=== PATIENT | male | born 1980 | race Hispanic/Latino ===

== ENCOUNTER 2020-07-12 11:03 | Emergency (ER) | payer BC ==
--- NOTE | 2020-07-12 11:58 | RAD REPORT ---
EXAM DESCRIPTION: RAD - Chest Single View - 07/12/2020 11:38 am CLINICAL HISTORY: CHEST PAIN Chest pain. COMPARISON: CHEST SINGLE VIEW dated 04/04/2013; CHEST PA AND LAT 2 VIEW dated 04/23/2012 FINDINGS: Portable technique limits examination quality. The lungs are grossly clear. The heart is normal in size. No displaced fractures. IMPRESSION: No acute intrathoracic process suspected.
[2020-07-12] MEDS ORDERED: ASPIRIN 81 MG CHEWABLE TABLET ONE (12:10)
[2020-07-12] MEDS ORDERED: METOPROLOL TAR 50 MG TAB ONE (12:11)
[2020-07-12] MEDS ORDERED: NA CHLORIDE 0.9% 1,000 ML ONE (12:11)
[2020-07-12 12:18] LABS: Protime INR 0.94
[2020-07-12 12:22] LABS: Basophils % 0.5 % (0-1.3); Hematocrit 42.9 % (39.6-49.0); MPV 9.5 fL (7.6-11.3); RBC Red Blood Cell Count 4.65 M/uL (4.33-5.43)
[2020-07-12 12:23] LABS: ALT/SGPT 92 U/L (12-78); AST/SGOT 57 U/L (15-37); Albumin 4.3 g/dL (3.4-5.0); Alkaline Phosphatase 103 U/L (45-117); BUN Blood Urea Nitrogen 11 mg/dL (7-18); Bicarbonate 25 mmol/L (21-32); Bilirubin Direct < 0.1 mg/dL (0-0.2); Bilirubin Total 0.4 mg/dL (0.2-1.0); Glucose Level 100 mg/dL (74-106); Potassium 3.9 mmol/L (3.5-5.1); Protein, Total 8.2 g/dL (6.4-8.2); Sodium Level 141 mmol/L (136-145); Troponin (Emerg Dept Use Only) < 0.02 ng/mL (0.0-0.045)
--- NOTE | 2020-07-12 13:32 | EDPHYS ---
Physician Documentation [facility] Name: Jose Carrasco Jr Age: 40 yrs Sex: Male : 1980 Arrival Date: 07/12/2020 Time: 11:04 Bed 16 Private MD: ED Physician Saji Chen HPI: 07/12 11:29 This 40 yrs old Male presents to ER via Ambulatory with complaints of Chest akiko Pain. 11:29 The patient or guardian reports chest pain that is located primarily in the substernal akiko area, anterior chest wall, left. Onset: just prior to arrival. The pain does not radiate. Associated signs and symptoms: Pertinent positives: shortness of breath. The chest pain is described as a pressure. Modifying factors: The symptoms are alleviated by remaining still, the symptoms are aggravated by deep breath. Severity of pain: At its worst the pain was mild in the emergency department the pain is unchanged. The patient has not experienced similar symptoms in the past. Historical: - Allergies: 11:14 No Known Drug Allergies; sv - PMHx: 11:14 None; sv - PSHx: 11:14 left shoulder sx; sv - Immunization history:: Adult Immunizations. - Social history:: Smoking status: Patient reports the use of cigarette tobacco products, denies chronic smoking, but will smoke occasionally. - Family history:: not pertinent. ROS: 11:29 Constitutional: Negative for fever, chills, and weight loss, Eyes: Negative for injury, akiko pain, redness, and discharge, ENT: Negative for injury, pain, and discharge, Neck: Negative for injury, pain, and swelling, Respiratory: Negative for shortness of breath, cough, wheezing, and pleuritic chest pain, Abdomen/GI: Negative for abdominal pain, nausea, vomiting, diarrhea, and constipation, Back: Negative for injury and pain, : Negative for injury, bleeding, discharge, and swelling, MS/Extremity: Negative for injury and deformity, Skin: Negative for injury, rash, and discoloration, Neuro: Negative for headache, weakness, numbness, tingling, and seizure, Psych: Negative for depression, anxiety, suicide ideation, homicidal ideation, and hallucinations, Allergy/Immunology: Negative for hives, rash, and allergies, Endocrine: Negative for neck swelling, polydipsia, polyuria, polyphagia, and marked weight changes, Hematologic/Lymphatic: Negative for swollen nodes, abnormal bleeding, and unusual bruising. 11:29 Cardiovascular: Positive for chest pain, of the left clavicle and anterior aspect of left upper chest. Exam: 11:29 Constitutional: This is a well developed, well nourished patient who is awake, alert, akiko and in no acute distress. Head/Face: Normocephalic, atraumatic. Eyes: Pupils equal round and reactive to light, extra-ocular motions intact. Lids and lashes normal. Conjunctiva and sclera are non-icteric and not injected. Cornea within normal limits. Periorbital areas with no swelling, redness, or edema. ENT: Nares patent. No nasal discharge, no septal abnormalities noted. Tympanic membranes are normal and external auditory canals are clear. Oropharynx with no redness, swelling, or masses, exudates, or evidence of obstruction, uvula midline. Mucous membranes moist. Neck: Trachea midline, no thyromegaly or masses palpated, and no cervical lymphadenopathy. Supple, full range of motion without nuchal rigidity, or vertebral point tenderness. No Meningismus. Chest/axilla: Normal chest wall appearance and motion. Nontender with no deformity. No lesions are appreciated. Cardiovascular: Regular rate and rhythm with a normal S1 and S2. No gallops, murmurs, or rubs. Normal PMI, no JVD. No pulse deficits. Respiratory: Lungs have equal breath sounds bilaterally, clear to auscultation and percussion. No rales, rhonchi or wheezes noted. No increased work of breathing, no retractions or nasal flaring. Abdomen/GI: Soft, non-tender, with normal bowel sounds. No distension or tympany. No guarding or rebound. No evidence of tenderness throughout. Back: No spinal tenderness. No costovertebral tenderness. Full range of motion. Skin: Warm, dry with normal turgor. Normal color with no rashes, no lesions, and no evidence of cellulitis. MS/ Extremity: Pulses equal, no cyanosis. Neurovascular intact. Full, normal range of motion. Neuro: Awake and alert, GCS 15, oriented to person, place, time, and situation. Cranial nerves II-XII grossly intact. Motor strength 5/5 in all extremities. Sensory grossly intact. Cerebellar exam normal. Normal gait. Psych: Awake, alert, with orientation to person, place and time. Behavior, mood, and affect are within normal limits. 11:29 Musculoskeletal/extremity: DVT Exam: No signs of deep vein thrombosis. no pain, no swelling, no tenderness, negative Homans' sign noted on exam, no appreciated bluish discoloration, no erythema, no increased warmth. 11:34 ECG was reviewed by the Attending Physician. [facility] Vital Signs: 11:15 BP 163 / 100; Pulse 77; Resp 20; Temp 98.9; Pulse Ox 100% ; Weight 95.25 kg; Height 5 sv ft. 11 in. (180.34 cm); Pain 8/10; 12:08 BP 161 / 108; Pulse 74; Resp 16; Pulse Ox 98% ; bp 13:14 BP 128 / 99; Pulse 54; Resp 16; Pulse Ox 100% ; ss 14:10 BP 127 / 93; Pulse 61; Resp 17; Temp 98.5; Pulse Ox 99% ; bp 11:15 Body Mass Index 29.29 (95.25 kg, 180.34 cm) sv MDM: 11:19 Patient medically screened. akiko 11:31 Differential diagnosis: abnormal EKG, coronary artery disease chest wall pain, akiko Cholelithiasis hiatal hernia, pancreatitis, pneumonia, pulmonary embolus, stable angina, unstable angina. HEART Score: History: Slightly Suspicious (0), ECG: Normal (0), Age: < or = 45 years (0), Risk Factors: No Risk Factors Known (0), Troponin: < or = 1 x Normal Limit (0). The patient was given aspirin in the Emergency Department. The patient's deep vein thrombosis risk score was calculated as follows: Total Score: 0. This patient was found to be at low risk for a deep vein thrombosis by using the Well's assessment criteria. The patient's pulmonary embolism risk score was calculated as follows: Total Score: 0-2 points. This patient was found to be at low risk for a pulmonary embolism by using the Well's assessment criteria. TANESHA Risk Score: TOTAL SCORE = 0. Data reviewed: vital signs, nurses notes, lab test result(s), EKG, radiologic studies, plain films. Data interpreted: water meter installer: rate is 77 beats/min, rhythm is regular, Pulse oximetry: on room air. Test interpretation: by ED physician or midlevel provider: ECG, plain radiologic studies. 12:10 ED course: all labs discussed, will follow up , return if symptoms return or persist. [facility] 13:29 ED course: pts labs discussed, will dc and have pat to follow up dr barahona. [facility] 07/12 11:29 Order name: Basic Metabolic Panel; Complete Time: 13:24 [facility] 07/12 11:29 Order name: CBC with Diff; Complete Time: 13:24 [facility] 07/12 11:29 Order name: LFT's; Complete Time: 13:24 [facility] 07/12 11:29 Order name: Magnesium; Complete Time: 13:24 [facility] 07/12 11:29 Order name: PT-INR; Complete Time: 13:24 [facility] 07/12 11:29 Order name: Troponin (emerg Dept Use Only); Complete Time: 13:24 [facility] 07/12 11:29 Order name: XRAY Chest (1 view); Complete Time: 12:10 [facility] 07/12 11:29 Order name: D-Dimer; Complete Time: 13:24 [facility] 07/12 11:29 Order name: UDS [facility] 07/12 13:55 Order name: Urine Dipstick--Ancillary (enter results) 07/12 13:56 Order name: Urine Dipstick-Ancillary [facility] 07/12 11:29 Order name: EKG; Complete Time: 11:30 [facility] 07/12 11:29 Order name: Cardiac monitoring; Complete Time: 11:52 [facility] 07/12 11:29 Order name: EKG - Nurse/Tech; Complete Time: 11:52 [facility] 07/12 11:29 Order name: IV Saline Lock; Complete Time: 11:52 [facility] 07/12 11:29 Order name: Labs collected and sent; Complete Time: 11:52 [facility] 07/12 11:29 Order name: O2 Per Protocol; Complete Time: 11:52 [facility] 07/12 11:29 Order name: O2 Sat Monitoring; Complete Time: 11:52 [facility] EC:34 Rate is 65 beats/min. Rhythm is regular. QRS [place] is Normal. [place] interval is normal. QRS akiko interval is normal. QT interval is normal. No Q waves. T waves are Normal. No ST changes noted. Clinical impression: Normal ECG and No evidence of ischemia. Interpreted by me. Reviewed by me. Administered Medications: 11:55 Drug: NS 0.9% 1000 ml Route: IV; Rate: 1 bolus; Site: left antecubital; bp 14:14 Follow up: IV Status: Completed infusion; IV Intake: 1000ml bp 11:55 Drug: Aspirin Chewable Tablet 324 mg Route: PO; bp 13:51 Follow up: Response: No adverse reaction bp 11:55 Drug: Lopressor (metoprolol TARTRATE) 50 mg Route: PO; bp 13:51 Follow up: Response: Marked relief of symptoms bp Disposition: 07/12/20 13:31 Discharged to Home. Impression: Chest pain, unspecified, Dyspnea. - Condition is Stable. - Discharge Instructions: Nonspecific Chest Pain, Chest Wall Pain, Shortness of Breath, Shortness of Breath, [id number], Chest Wall Pain, [id number], Nonspecific Chest Pain, [id number], Aspirin and Your Heart. - Medication Reconciliation Form, Thank You Letter, Antibiotic Education, Prescription Opioid Use form. - Work release form (07/13/20 13:05). eb - Follow up: Private Physician; When: 2 - 3 days; Reason: Recheck today's complaints, Continuance of care, Re-evaluation by your physician. Follow up: Luigi Barahona MD; When: 2 - 3 days; Reason: Recheck today's complaints, Re-evaluation by your physician. - Problem is new. - Symptoms have improved. Signatures: Dispatcher [employer] Maryjane Figueredo, RN Saji Baker MD MD cha Peltier, Brian, RN RN bp Botello, Elizabeth eb Corrections: (The following items were deleted from the chart) 14:14 13:31 07/12/2020 13:31 Discharged to Home. Impression: Chest pain, unspecified; bp Dyspnea. Condition is Stable. Forms are Medication Reconciliation Form, Thank You Letter, Antibiotic Education, Prescription Opioid Use. Follow up: Private Physician; When: 2 - 3 days; Reason: Recheck today's complaints, Continuance of care, Re-evaluation by your physician. Follow up: Luigi Barahona; When: 2 - 3 days; Reason: Recheck today's complaints, Re-evaluation by your physician. Problem is new. Symptoms have improved. akiko
--- NOTE | 2020-07-12 13:32 | ER ---
Nurse's Notes [facility] Name: Jose Carrasco Jr Age: 40 yrs Sex: Male : 1980 Arrival Date: 07/12/2020 Time: 11:04 Bed 16 Private MD: Diagnosis: Chest pain, unspecified;Dyspnea Presentation: 07/12 11:13 Chief complaint: Patient states: left sided chest pain started this morning. Reports sv that he was outside when the pain started at work, SOB, dizziness, vomiting. 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 Coronavirus screen: Client denies travel out of the [place] in the last 14 days. At this time, the client does not indicate any symptoms associated with coronavirus-19. Ebola Screen: No symptoms or risks identified at this time. Risk Assessment: Do you want to hurt yourself or someone else? Patient reports no desire to harm self or others. Onset of symptoms was July 12, 2020. 11:13 Method Of Arrival: Ambulatory sv 11:13 Acuity: KB 2 sv 11:15 Initial Sepsis Screen: Does the patient meet any 2 criteria? No. Patient's initial sv sepsis screen is negative. Does the patient have a suspected source of infection? No. Patient's initial sepsis screen is negative. Triage Assessment: 11:15 General: Appears in no apparent distress. uncomfortable, Behavior is cooperative, bp appropriate for age, anxious. Pain: Complains of pain in chest. EENT: No deficits noted. Neuro: No deficits noted. Cardiovascular: Rhythm is sinus rhythm. Respiratory: No deficits noted. GI: No signs and/or symptoms were reported involving the gastrointestinal system. : No signs and/or symptoms were reported regarding the genitourinary system. Derm: No deficits noted. Musculoskeletal: No deficits noted. Historical: - Allergies: 11:14 No Known Drug Allergies; sv - PMHx: 11:14 None; sv - PSHx: 11:14 left shoulder sx; sv - Immunization history:: Adult Immunizations. - Social history:: Smoking status: Patient reports the use of cigarette tobacco products, denies chronic smoking, but will smoke occasionally. - Family history:: not pertinent. Screenin:15 Abuse screen: Denies threats or abuse. Denies injuries from another. Nutritional bp screening: No deficits noted. Tuberculosis screening: No symptoms or risk factors identified. Fall Risk None identified. Assessment: 11:15 General: SEE TRIAGE NOTE. Pain: Pain radiates to anterior aspect of left upper chest. bp Cardiovascular: Rhythm is sinus rhythm. 12:08 Reassessment: UOP PENDING. PT REMAINS HYPERTENSIVE ON MONITOR. bp 13:17 Reassessment: PT NOW NORMO-TENSIVE, VS STABLE ON MONITOR. ss 14:10 Reassessment: PT D/C HOME AMBULATORY, DX WITH NONSPECIFIC CP. bp Vital Signs: 11:15 BP 163 / 100; Pulse 77; Resp 20; Temp 98.9; Pulse Ox 100% ; Weight 95.25 kg; Height 5 sv ft. 11 in. (180.34 cm); Pain 8/10; 12:08 BP 161 / 108; Pulse 74; Resp 16; Pulse Ox 98% ; bp 13:14 BP 128 / 99; Pulse 54; Resp 16; Pulse Ox 100% ; ss 14:10 BP 127 / 93; Pulse 61; Resp 17; Temp 98.5; Pulse Ox 99% ; bp 11:15 Body Mass Index 29.29 (95.25 kg, 180.34 cm) sv ED Course: 11:04 Patient arrived in ED. as 11:13 Arm band placed on. sv 11:14 Triage completed. sv 11:15 Patient has correct armband on for positive identification. Bed in low position. Call bp light in reach. Side rails up X2. security monitor on. Pulse ox on. NIBP on. 11:15 Inserted saline lock: 20 gauge in left antecubital area, using aseptic technique. bp Patient maintains SpO2 saturation greater than 95% on room air. 11:19 Saji Chen MD is Attending Physician. akiko 11:21 Jose Alfredo Qiu, KENNETH is Primary Nurse. bp 11:38 XRAY Chest (1 view) In Process Unspecified. EDMS 13:30 Luigi Barahona MD is Referral Physician. akiko 14:11 No provider procedures requiring assistance completed. IV discontinued. bp Administered Medications: 11:55 Drug: NS 0.9% 1000 ml Route: IV; Rate: 1 bolus; Site: left antecubital; bp 14:14 Follow up: IV Status: Completed infusion; IV Intake: 1000ml bp 11:55 Drug: Aspirin Chewable Tablet 324 mg Route: PO; bp 13:51 Follow up: Response: No adverse reaction bp 11:55 Drug: Lopressor (metoprolol TARTRATE) 50 mg Route: PO; bp 13:51 Follow up: Response: Marked relief of symptoms bp Intake: 14:14 IV: 1000ml; Total: 1000ml. bp Outcome: 13:31 Discharge ordered by MD. wharton 14:11 Discharged to home ambulatory. bp 14:11 Condition: stable 14:11 Discharge instructions given to patient, Instructed on discharge instructions, follow up and referral plans. Demonstrated understanding of instructions, follow-up care. 14:14 Patient left the ED. bp Signatures: Dispatcher [employer] EDMaryjane Earl RN RN sv Anderson, Corey, MD MD cha Martinez, Amelia as Smirch, Shelby, RN RN Jose Alfredo Qiu RN RN bp Corrections: (The following items were deleted from the chart) 11:18 11:13 Acuity: KB 3 sv sv
[2020-07-12 13:57] LABS: Barbiturates NEGATIVE (NEGATIVE); Benzodiazepines NEGATIVE (NEGATIVE); Cocaine NEGATIVE (NEGATIVE); METHAMPHETAM NEGATIVE (NEGATIVE); Methadone NEGATIVE (NEGATIVE); Opiates NEGATIVE (NEGATIVE); Phencyclidine NEGATIVE (NEGATIVE); THC Cannibis NEGATIVE (NEGATIVE)
[2020-07-12 14:01] LABS: Urine Blood NEGATIVE (NEG); Urine Glucose NEGATIVE (NEG); Urine Protein NEGATIVE (NEG); Urine pH 8.5 (5.0-7.0)
--- NOTE | 2020-07-13 09:01 | EKG ---
Test Date: 2020-07-12 Test Time: 11:23:29 Hide Buffer: AARON MEASUREMENT RESULTS: Intervals: Rate: 65 WI: 136 QRSD: 104 QT: 406 QTc: 422 Grayson: P: 59 WI: 136 QRS: 80 T: 60 INTERPRETIVE STATEMENTS: Normal sinus rhythm Minimal voltage criteria for LVH, may be normal variant Borderline ECG Compared to ECG 04/04/2013 21:08:27 No significant changes Electronically Signed On 07-13-20 09:00:13 CDT by Luigi Barahona
[2020-07-13 20:30] VITALS: BP 127/93; TEMP 98.5; O2SAT 99
== END 2020-07-12 14:14 | disposition home or self-care (01) ==
LOC: ER 11:03
DX: R06.00 Dyspnea, unspecified (principal); F17.210 Nicotine dependence, cigarettes, uncomplicated
CPT/HCPCS: 96361; 93005; 85025; 80048; 36415; 83735; 85610; 85379; 80076; 80307 ×8; 81003; 84484; 71045; 96360; 99285; J7030

== ENCOUNTER 2021-02-10 19:35 | Emergency (ER) | payer BC ==
[2021-02-10] MEDS ORDERED: METOPROLOL TAR 50 MG TAB ONE (20:21)
[2021-02-10] MEDS ORDERED: LORazepam 2 MG/ML VIAL ONE (20:22)
[2021-02-10] MEDS ORDERED: NA CHLORIDE 0.9% 1,000 ML ONE (20:22)
[2021-02-10 20:40] LABS: Absolute Lymphocytes (CBC) 1.2 K/uL (0.7-4.9); Basophils % 0.8 % (0-1.3); Hematocrit 44.7 % (39.6-49.0); Lymphocytes % 9.6 % (15.3-44.8); MPV 9.5 fL (7.6-11.3)
[2021-02-10 20:51] LABS: Protime INR 0.97
[2021-02-10 20:57] LABS: ALT/SGPT 76 U/L (12-78); AST/SGOT 48 U/L (15-37); Albumin 4.2 g/dL (3.4-5.0); Alkaline Phosphatase 92 U/L (45-117); BUN Blood Urea Nitrogen 12 mg/dL (7-18); Bicarbonate 24 mmol/L (21-32); Bilirubin Direct < 0.1 mg/dL (0-0.2); Bilirubin Total 0.4 mg/dL (0.2-1.0); Glucose Level 103 mg/dL (74-106); Magnesium 1.9 mg/dL (1.8-2.4); NT PRO-BNP 23 pg/mL (<125); Potassium 3.6 mmol/L (3.5-5.1); Protein, Total 8.2 g/dL (6.4-8.2); Sodium Level 140 mmol/L (136-145); Troponin (Emerg Dept Use Only) < 0.02 ng/mL (0.0-0.045)
[2021-02-10 23:00] LABS: Urine Blood Negative (Negative); Urine Glucose Negative (Negative); Urine Protein 1+ (Negative); Urine Specific Gravity 1.025 (1.005-1.030)
[2021-02-10 23:34] LABS: Barbiturates NEGATIVE (NEGATIVE); Benzodiazepines NEGATIVE (NEGATIVE); Cocaine NEGATIVE (NEGATIVE); METHAMPHETAM NEGATIVE (NEGATIVE); Methadone NEGATIVE (NEGATIVE); Opiates NEGATIVE (NEGATIVE); Phencyclidine NEGATIVE (NEGATIVE); THC Cannibis NEGATIVE (NEGATIVE)
--- NOTE | 2021-02-11 00:27 | EDPHYS ---
Physician Documentation [facility] Name: Jose Carrasco Jr Age: 40 yrs Sex: Male : 1980 Arrival Date: 02/10/2021 Time: 19:36 Bed 2 Private MD: ED Physician Hossein Franklin HPI: 02/10 19:51 This 40 yrs old Male presents to ER via EMS with unknown complaint. pkl 19:51 The patient or guardian reports chest pain that is located primarily in the substernal pkl area. Onset: just prior to arrival, 1 hour(s) ago. The pain does not radiate. Associated signs and symptoms: Pertinent positives: nausea. The chest pain is described as a pressure. The patient has experienced a previous episode, last year. Historical: - Allergies: 19:41 No Known Allergies; jb4 - Home Meds: 19:41 None [Active]; jb4 - PMHx: 19:41 Hypertension; Anxiety; jb4 - PSHx: 19:41 shoulder; jb4 - Immunization history:: Adult Immunizations up to date. - Social history:: Smoking status: Patient reports the use of cigarette tobacco products, daily <1/2 pack, Patient uses alcohol, occasionally. Patient/guardian denies using street drugs. ROS: 19:51 Eyes: Negative for injury, pain, redness, and discharge, ENT: Negative for injury, pkl pain, and discharge, Neck: Negative for injury, pain, and swelling. 19:51 Cardiovascular: Positive for chest pain. 19:51 Respiratory: Negative for cough, shortness of breath. 19:51 Abdomen/GI: Positive for nausea. 19:51 Back: Negative for acute changes. 19:51 : Negative for urinary symptoms. 19:51 MS/extremity: Negative for acute changes. 19:51 Skin: Negative for diaphoresis, rash. 19:51 Neuro: Negative for altered mental status. Exam: 19:51 Head/Face: Normocephalic, atraumatic. Eyes: Pupils equal round and reactive to light, pkl extra-ocular motions intact. Lids and lashes normal. Conjunctiva and sclera are non-icteric and not injected. Cornea within normal limits. Periorbital areas with no swelling, redness, or edema. ENT: Nares patent. No nasal discharge, no septal abnormalities noted. Tympanic membranes are normal and external auditory canals are clear. Oropharynx with no redness, swelling, or masses, exudates, or evidence of obstruction, uvula midline. Mucous membranes moist. Neck: Trachea midline, no thyromegaly or masses palpated, and no cervical lymphadenopathy. Supple, full range of motion without nuchal rigidity, or vertebral point tenderness. No Meningismus. Chest/axilla: Normal chest wall appearance and motion. Nontender with no deformity. No lesions are appreciated. Cardiovascular: Regular rate and rhythm with a normal S1 and S2. No gallops, murmurs, or rubs. Normal PMI, no JVD. No pulse deficits. Respiratory: Lungs have equal breath sounds bilaterally, clear to auscultation and percussion. No rales, rhonchi or wheezes noted. No increased work of breathing, no retractions or nasal flaring. Abdomen/GI: Soft, non-tender, with normal bowel sounds. No distension or tympany. No guarding or rebound. No evidence of tenderness throughout. Back: No spinal tenderness. No costovertebral tenderness. Full range of motion. Skin: Warm, dry with normal turgor. Normal color with no rashes, no lesions, and no evidence of cellulitis. MS/ Extremity: Pulses equal, no cyanosis. Neurovascular intact. Full, normal range of motion. Neuro: Awake and alert, GCS 15, oriented to person, place, time, and situation. Cranial nerves II-XII grossly intact. Motor strength 5/5 in all extremities. Sensory grossly intact. Cerebellar exam normal. Normal gait. Vital Signs: 19:36 BP 154 / 114; Pulse 79; Resp 22; Temp 98.2(TE); Pulse Ox 100% on R/A; Weight 97.52 kg jb4 (R); Height 5 ft. 10 in. (177.80 cm); Pain 5/10; 20:30 BP 131 / 86; Pulse 59; Resp 16; Pulse Ox 97% on R/A; jb4 21:33 BP 125 / 85; Pulse 60; Resp 20; Pulse Ox 97% ; mg2 23:00 BP 138 / 100; Pulse 67; Resp 16; Pulse Ox 98% on R/A; jb4 02/11 00:00 BP 131 / 93; Pulse 50; Resp 16; Pulse Ox 99% on R/A; jb4 02/10 19:36 Body Mass Index 30.85 (97.52 kg, 177.80 cm) jb4 MDM: 02/10 19:41 Patient medically screened. pkl 02/11 00:22 Data reviewed: vital signs, nurses notes. ED course: patient feeling better. Chest pain pkl resolved. Advised to follow up with Excavating Supervisor in 2 to 3 days for further evaluations. Patient understood instructions. 02/10 19:49 Order name: Basic Metabolic Panel pkl 02/10 19:49 Order name: CBC with Diff pkl 02/10 19:49 Order name: LFT's pkl 02/10 19:49 Order name: Magnesium pkl 02/10 19:49 Order name: NT PRO-BNP pkl 02/10 19:49 Order name: UDS; Complete Time: 08:22 pkl 02/10 20:34 Order name: Basic Metabolic Panel; Complete Time: 22:36 EDMS 02/10 20:34 Order name: Liver (Hepatic) Function; Complete Time: 22:36 EDMS 02/10 20:34 Order name: Troponin (Emerg Dept Use Only); Complete Time: 22:36 EDMS 02/10 20:34 Order name: NT PRO-BNP; Complete Time: 22:36 EDMS 02/10 20:34 Order name: Magnesium; Complete Time: 22:36 EDMS 02/10 20:34 Order name: CBC with Automated Diff; Complete Time: 22:36 EDMS 02/10 20:34 Order name: Protime (+INR); Complete Time: 22:36 EDMS 02/10 20:34 Order name: D-Dimer; Complete Time: 22:36 EDMS 02/10 21:31 Order name: Chest Single View; Complete Time: 08:22 EDMS 02/10 22:59 Order name: Urine Dipstick-Ancillary; Complete Time: 23:11 EDMS 02/10 19:49 Order name: EKG; Complete Time: 22:31 pkl 02/10 19:49 Order name: Cardiac monitoring; Complete Time: 20:18 pkl 02/10 19:49 Order name: EKG - Nurse/Tech; Complete Time: 20:18 pkl 02/10 19:49 Order name: IV Saline Lock; Complete Time: 20:18 pkl 02/10 19:49 Order name: Labs collected and sent; Complete Time: 20:19 pkl 02/10 19:49 Order name: O2 Per Protocol; Complete Time: 20:19 pkl 02/10 19:49 Order name: O2 Sat Monitoring; Complete Time: 20:19 pkl Administered Medications: 02/10 19:50 CANCELLED (Duplicate Order): Aspirin 162 mg PO once pkl 19:50 CANCELLED (Duplicate Order): Nitroglycerin 0.4 mg Sublingual once pkl 20:11 Drug: NS 0.9% 1000 ml Route: IV; Rate: 1000 ml; Site: left antecubital; 4 23:50 Follow up: Response: No adverse reaction; IV Status: Completed infusion; IV Intake: mg2 1000ml 20:12 Drug: Lopressor (metoprolol TARTRATE) 50 mg Route: PO; [facility] 23:50 Follow up: Response: No adverse reaction mg2 20:12 Drug: Ativan 1 mg Route: IVP; Site: left antecubital; [facility] 23:50 Follow up: Response: No adverse reaction mg2 Disposition: 02/11/21 00:26 Discharged to Home. Impression: Chest pain. - Condition is Stable. - Medication Reconciliation Form, Thank You Letter, Antibiotic Education, Prescription Opioid Use form. - Follow up: Luigi Barahona MD; When: 2 - 3 days; Reason: Re-evaluation by your physician. - Problem is new. - Symptoms are resolved. Signatures: Dispatcher [employer] EDSC Hossein Franklin MD MD pkl Nam Jauregui RN RN jb4 Vance Harrison RN mg2 Corrections: (The following items were deleted from the chart) 19:50 19:49 Aspirin 162 mg PO once ordered. pkl pkl 19:50 19:49 Nitroglycerin 0.4 mg Sublingual once ordered. pk pkl 22:34 22:30 Chest Single View+RAD.RAD.BRZ ordered. [facility] 02/11 00:02/10 22:30 Basic Metabolic Panel ordered. [facility] 02/11 00:02/10 22:30 CBC with Automated Diff ordered. [facility] 02/11 00:02/10 22:30 Liver (Hepatic) Function ordered. [facility] 02/11 00:02/10 22:30 Magnesium ordered. [facility] 02/11 00:02/10 22:30 NT PRO-BNP ordered. [facility] 02/11 00:02/10 22:30 PROTIME (+INR)+COAG.LAB.BRZ ordered. [facility] 02/11 00:02/10 22:30 TROPONIN (EMERG DEPT USE ONLY)+C.LAB.BRZ ordered. [facility] 02/11 00:02/10 22:30 D-DIMER+COAG.LAB.BRZ ordered. [facility] 02/11 00:24 00:15 Data reviewed: vital signs, nurses notes, lab test result(s), EKG, radiologic pkl studies, plain films, pkl 00:24 00:15 ED course: Patient feeling better. Chest pain resolved. Discussed EKG, lab and X' pkl rays results with patient. Advised to follow up with Excavating Supervisor in 2 to 3 days for further evaluations. Patient understood instructions. pkl 00:34 00:26 02/11/2021 00:26 Discharged to Home. Impression: Chest pain. Condition is Stable. jb4 Forms are Medication Reconciliation Form, Thank You Letter, Antibiotic Education, Prescription Opioid Use. Follow up: Luigi Barahona; When: 2 - 3 days; Reason: Re-evaluation by your physician. Problem is new. Symptoms are resolved. pkl
--- NOTE | 2021-02-11 00:27 | ER ---
Nurse's Notes [facility] Name: Jose Carrasco Jr Age: 40 yrs Sex: Male : 1980 Arrival Date: 02/10/2021 Time: 19:36 Bed 2 Private MD: Diagnosis: Chest pain Presentation: 02/10 19:36 Chief complaint: Patient states: My chest started hurting about 45min-1 hour ago, I jb4 feel like its just anxiety, but when my chest started hurting I got scared and had to call EMS EMS states: Pt reports chest pain that started about 45 minutes to an hour ago. He has a history of anxiety and hypertension but is no longer being medicated for the hyper tension. We gave 8 of zofran for the nausea, 325 of aspirin, and 1 sublingual nitro. Coronavirus screen: Client denies travel out of the [place] in the last 14 days. At this time, the client does not indicate any symptoms associated with coronavirus-19. Ebola Screen: No symptoms or risks identified at this time. Initial Sepsis Screen: Does the patient meet any 2 criteria? No. Patient's initial sepsis screen is negative. Does the patient have a suspected source of infection? No. Patient's initial sepsis screen is negative. Risk Assessment: Do you want to hurt yourself or someone else? Patient reports no desire to harm self or others. Onset of symptoms was February 10, 2021. Transition of care: patient was not received from another setting of care. 19:36 Method Of Arrival: EMS: [facility] jb4 19:36 Acuity: KB 3 jb4 Triage Assessment: 19:41 General: Appears in no apparent distress. comfortable, Behavior is cooperative, jb4 appropriate for age, anxious. Pain: Complains of pain in chest Pain does not radiate. Pain currently is 5 out of 10 on a pain scale. Quality of pain is described as stabbing. EENT: No signs and/or symptoms were reported regarding the EENT system. Neuro: Level of Consciousness is awake, alert, obeys commands, Oriented to person, place, time, situation. Cardiovascular: Patient's skin is warm and dry. Respiratory: Airway is patent Respiratory effort is even, unlabored, Respiratory pattern is regular, symmetrical. GI: No signs and/or symptoms were reported involving the gastrointestinal system. : No signs and/or symptoms were reported regarding the genitourinary system. Derm: Skin is intact, Skin is pink, warm \T\ dry. Musculoskeletal: Amputation of Circulation, motion, and sensation intact. Range of motion:. Historical: - Allergies: 19:41 No Known Allergies; jb4 - Home Meds: 19:41 None [Active]; jb4 - PMHx: 19:41 Hypertension; Anxiety; jb4 - PSHx: 19:41 shoulder; jb4 - Immunization history:: Adult Immunizations up to date. - Social history:: Smoking status: Patient reports the use of cigarette tobacco products, daily <1/2 pack, Patient uses alcohol, occasionally. Patient/guardian denies using street drugs. Screenin:40 Abuse screen: Denies threats or abuse. Nutritional screening: No deficits noted. jb4 Tuberculosis screening: No symptoms or risk factors identified. Fall Risk None identified. Assessment: 19:40 Reassessment: see triage note. jb4 21:00 Reassessment: Patient appears in no apparent distress at this time. Patient and/or jb4 family updated on plan of care and expected duration. Pain level reassessed. Patient is alert, oriented x 3, equal unlabored respirations, skin warm/dry/pink. 22:00 Reassessment: Patient appears in no apparent distress at this time. Patient and/or jb4 family updated on plan of care and expected duration. Pain level reassessed. Patient is alert, oriented x 3, equal unlabored respirations, skin warm/dry/pink. denies anxiety, reports chest pain has improved and is now soar. Patient states feeling better. 23:04 Reassessment: Patient appears in no apparent distress at this time. Patient and/or jb4 family updated on plan of care and expected duration. Pain level reassessed. Patient is alert, oriented x 3, equal unlabored respirations, skin warm/dry/pink. 02/11 00:11 Reassessment: Patient appears in no apparent distress at this time. Patient and/or jb4 family updated on plan of care and expected duration. Pain level reassessed. Patient is alert, oriented x 3, equal unlabored respirations, skin warm/dry/pink. Vital Signs: 02/10 19:36 BP 154 / 114; Pulse 79; Resp 22; Temp 98.2(TE); Pulse Ox 100% on R/A; Weight 97.52 kg jb4 (R); Height 5 ft. 10 in. (177.80 cm); Pain 5/10; 20:30 BP 131 / 86; Pulse 59; Resp 16; Pulse Ox 97% on R/A; jb4 21:33 BP 125 / 85; Pulse 60; Resp 20; Pulse Ox 97% ; mg2 23:00 BP 138 / 100; Pulse 67; Resp 16; Pulse Ox 98% on R/A; jb4 04 00:00 BP 131 / 93; Pulse 50; Resp 16; Pulse Ox 99% on R/A; jb4 02/10 19:36 Body Mass Index 30.85 (97.52 kg, 177.80 cm) jb4 ED Course: 02/10 19:36 Patient arrived in ED. jb4 19:40 Triage completed. jb4 19:40 Patient has correct armband on for positive identification. Bed in low position. Call jb4 light in reach. Side rails up X 1. Pulse ox on. NIBP on. 19:41 Hossein Franklin MD is Attending Physician. pkl 19:41 Arm band placed on right wrist. jb4 19:54 Nam Jauregui RN is Primary Nurse. jb4 22:18 Chest Single View In Process Unspecified. EDMS 02/11 00:25 Luigi Barahona MD is Referral Physician. pkl 00:34 No provider procedures requiring assistance completed. IV discontinued, intact, jb4 bleeding controlled, No redness/swelling at site. Pressure dressing applied. Administered Medications: 02/10 19:50 CANCELLED (Duplicate Order): Aspirin 162 mg PO once pkl 19:50 CANCELLED (Duplicate Order): Nitroglycerin 0.4 mg Sublingual once pkl 20:11 Drug: NS 0.9% 1000 ml Route: IV; Rate: 1000 ml; Site: left antecubital; jb4 23:50 Follow up: Response: No adverse reaction; IV Status: Completed infusion; IV Intake: mg2 1000ml 20:12 Drug: Lopressor (metoprolol TARTRATE) 50 mg Route: PO; jb4 23:50 Follow up: Response: No adverse reaction mg2 20:12 Drug: Ativan 1 mg Route: IVP; Site: left antecubital; jb4 23:50 Follow up: Response: No adverse reaction mg2 Intake: 23:50 IV: 1000ml; Total: 1000ml. mg2 Outcome: 02/11 00:26 Discharge ordered by . dorota 00:34 Discharged to home ambulatory. jb4 00:34 Condition: stable 00:34 Discharge instructions given to patient, Instructed on discharge instructions, follow up and referral plans. Demonstrated understanding of instructions, follow-up care. 00:34 Patient left the ED. jb4 Signatures: Dispatcher [employer] EDWA Hossein Franklin MD MD pkNam Ch RN RN jb Vance Harrison RN RN mg2 Corrections: (The following items were deleted from the chart) 02/10 19:44 19:36 BP 154 / 114; Pulse 79bpm; Resp 16bpm; Pulse Ox 100% RA; Temp 98.2F Temporal; jb4 97.52 kg Reported; Height 5 ft. 10 in.; BMI: 30.8; Pain 5/10; jb4 02/11 00:33 00:33 Abuse screen: Denies threats or abuse. jb4 [facility] 00:33 00:33 Nutritional screening: No deficits noted. jb4 jb4 00:33 00:33 Tuberculosis screening: No symptoms or risk factors identified. jb4 jb4 00:33 00:33 Fall Risk None identified. jb4 jb4
[2021-02-11 01:55] VITALS: TEMP 98.2
[2021-02-11 02:00] VITALS: BP 131/93; O2SAT 99
--- NOTE | 2021-02-11 05:48 | RAD REPORT ---
EXAM DESCRIPTION: Brody Single View02/10/2021 10:18 pm CLINICAL HISTORY: Chest pain COMPARISON: 2019 FINDINGS: The lungs appear clear of acute infiltrate. The heart is normal size IMPRESSION: No acute abnormalities displayed
--- NOTE | 2021-02-11 08:10 | EKG ---
Test Date: 2021-02-10 Test Time: 19:51:14 Rental Sales Representative: STUART MEASUREMENT RESULTS: Intervals: Rate: 66 NE: 128 QRSD: 102 QT: 408 QTc: 427 [place]: P: 55 NE: 128 QRS: 82 T: 62 INTERPRETIVE STATEMENTS: Normal sinus rhythm Normal ECG Compared to ECG 07/12/2020 11:23:29 Left ventricular hypertrophy no longer present Electronically Signed On 02-11-21 08:08:10 CDT by Luigi Barahona
== END 2021-02-11 00:34 | disposition home or self-care (01) ==
LOC: ER 19:35
DX: R07.9 Chest pain, unspecified (principal); I10 Essential (primary) hypertension; Z72.0 Tobacco use
CPT/HCPCS: 93005; 85025; 80048; 36415; 83735; 85610; 85379; 80076; 80307 ×8; 81003; 84484; 83880; 71045; J7030; 96361; 96374; 99284

== ENCOUNTER 2021-06-09 05:15 | Emergency (ER) | payer BC ==
--- OUTSIDE RECORDS SUMMARY | 2021-06-09 05:17 | XMS REPORT | Continuity of Care Document ---
:1980 Author Organization [facility] t Address [address] [place] [address] Care Team Providers Name Role Phone Asked, Pcp Primary Care Physician Unavailable Basilio NARVAEZ Attending Clinician Singer BALL Attending Clinician Problems Condition Condition Condition Status Onset Resolution Last Treating Co mments Source Name Details Category Date Date Treatment Clinician Date No known No known Disease Metho di active active st problems problems Hospit a l Allergies, Adverse Reactions, Alerts This patient has no known allergies or adverse reactions. Family History Family Member Diagnosis Comments Start Date Stop Date Source Natural father No Known Problems Met [facility] Natural mother No Known Problems Met [facility] Social History Social Habit Start Date Stop Date Quantity Comments Source Tobacco use and 2017-05-20 2017-05-20 Never used Yarsanism exposure 00:00:00 00:00:00 Hospital Alcohol intake 2017-05-20 2017-05-20 Current drinker [facility] 00:00:00 00:00:00 of alcohol Hospital (finding) Sex Assigned At [birth year] Yarsanism 00:00:00 00:00:00 Hospital Smoking Status Start Date Stop Date Source Current every day smoker 2017-05-20 00:00:00 Met [facility] Medications Ordered Filled Start Stop Current Ordering Indication Dosage Frequency Signature Comments Components Source Medication Medication Date Date Medication? Clinician (SIG) Name Name No known No Methodi medications [facility] Procedures This patient has no known procedures. Plan of Care Planned Activity Planned Date Details Comments Source Future Scheduled Test COVID-19 VACCINE (1) [facility] [code = COVID-19 VACCINE (1)] Future Scheduled Test INFLUENZA VACCINE M [facility] [code = INFLUENZA VACCINE] Encounters Start End Encounter Admission Attending Care Care Encounter Source Date/Time Date/Time Type Type Clinicians Facility Department ID 2021-04-06 2021-04-06 Emergency [facility] [id number] 19:29:00 21:15:00 Salvador Chun [id number] [place] [id number] [place] [id number] 2021-02-27 2021-02-27 [facility] [id number] 00:18:00 03:30:00 Samuel Chun [id number] [place] [id number] [place] [id number] Results This patient has no known results.
[2021-06-09] MEDS ORDERED: METOPROLOL TARTRATE 5 MG/5 ML INJ IV ONE (05:36)
[2021-06-09 06:10] LABS: Absolute Lymphocytes (CBC) 2.2 K/uL (0.7-4.9); Basophils % 0.6 % (0-1.3); Hematocrit 42.6 % (39.6-49.0); Lymphocytes % 22.2 % (15.3-44.8); MPV 8.6 fL (7.6-11.3); RBC Red Blood Cell Count 4.64 M/uL (4.33-5.43)
[2021-06-09 06:29] LABS: ALT/SGPT 81 U/L (12-78); AST/SGOT 44 U/L (15-37); Albumin 4.1 g/dL (3.4-5.0); Alkaline Phosphatase 106 U/L (45-117); BUN Blood Urea Nitrogen 14 mg/dL (7-18); Bicarbonate 28 mmol/L (21-32); Bilirubin Direct < 0.1 mg/dL (0-0.2); Bilirubin Total 0.4 mg/dL (0.2-1.0); Glucose Level 102 mg/dL (74-106); Lipase 155 U/L (73-393); Potassium 3.7 mmol/L (3.5-5.1); Protein, Total 7.9 g/dL (6.4-8.2); Sodium Level 137 mmol/L (136-145)
[2021-06-09] MEDS ORDERED: ONDANSETRON 4 MG/2 ML VIAL ONE (06:54)
[2021-06-09] MEDS ORDERED: MORPHINE 4 MG/ML SYR ONE (06:54)
[2021-06-09] MEDS ORDERED: NA CHLORIDE 0.9% 1,000 ML ONE (06:54)
[2021-06-09] MEDS ORDERED: LORazepam 2 MG/ML VIAL ONE (07:21)
--- NOTE | 2021-06-09 08:14 | RAD REPORT ---
EXAM DESCRIPTION: CT - Abdomen Pelvis W Contrast - 06/09/2021 7:30 am CLINICAL HISTORY: LLQ abdomen pain COMPARISON: CT study January 2015 TECHNIQUE: Biphasic, helical CT imaging of the abdomen and pelvis was performed following 100 ml non -ionic IV contrast. No oral contrast given. All CT scans are performed using dose optimization technique as appropriate and may include automated exposure control or mA/KV adjustment according to patient size. FINDINGS: No suspicious findings in the lung bases. Liver shows diffuse fatty infiltration with no focal liver lesions seen. Portal vein is normal. No ac [place] spleen or pancreatic abnormality. Gallbladder and biliary tree are also without suspicious findin g. Gallstones can be occult on CT imaging. Symmetric renal function is seen with no hydronephrosis or suspicious renal mass. No pyelonephritis o r acute parenchymal process. No bladder abnormalities. No adrenal abnormalities. No stomach or small bowel abnormality seen. No colon dilatation or wall thickening. No appendicitis f indings. In the left lower quadrant there is stranding in the subcutaneous fat that is similar to the 2015 study. No active bowel process is identifiable at this time. No free air, free fluid or inflammatory stranding. No mass or bulky lymphadenopathy. Small fat only umbilical hernia is unchanged. Fat extends into the origin of each inguinal canal fractionally increa sed compared to prior imaging. No congestion or edema of the herniated fat. No suspicious bony findings. IMPRESSION: Contrast enhanced CT abdomen and pelvis showing no acute or emergent finding. Patient has very small bilateral fat filled inguinal hernias increased fractionally in size from 2015 . There is no congestion or edema of the herniated fat.
[2021-06-09 08:27] LABS: Urine Blood Negative (Negative); Urine Glucose Negative (Negative); Urine Protein Negative (Negative); Urine Specific Gravity 1.025 (1.005-1.030); Urine pH 5.5 (5.0-7.0)
--- NOTE | 2021-06-09 08:45 | ER ---
Nurse's Notes [facility] Name: Jose Carrasco Jr Age: 41 yrs Sex: Male : 1980 Arrival Date: 06/09/2021 Time: 05:16 Bed 24 Private MD: Diagnosis: Lower abdominal pain, unspecified Presentation: 06/09 05:40 Chief complaint: Patient states: Pt reports left lower quadrant pain that started this ea AM reports pain woke him out of his sleep. Coronavirus screen: At this time, the client does not indicate any symptoms associated with coronavirus-19. Ebola Screen: No symptoms or risks identified at this time. Initial Sepsis Screen: Does the patient meet any 2 criteria? No. Patient's initial sepsis screen is negative. Does the patient have a suspected source of infection? No. Patient's initial sepsis screen is negative. Risk Assessment: Do you want to hurt yourself or someone else? Patient reports no desire to harm self or others. Onset of symptoms was June 09, 2021. 05:40 Acuity: KB 3 ea 05:40 Method Of Arrival: Ambulatory ea Historical: - Allergies: 05:42 No Known Drug Allergies; ea - PMHx: 05:42 Anxiety; Hypertension; ea - Immunization history:: Adult Immunizations up to date. - Social history:: Smoking status: Patient denies any tobacco usage or history of. Screenin:40 Abuse screen: Denies threats or abuse. Nutritional screening: No deficits noted. ea Tuberculosis screening: No symptoms or risk factors identified. Fall Risk None identified. Assessment: 05:42 General: Appears in no apparent distress. Behavior is calm, cooperative, appropriate ea for age. Pain: Denies pain. Neuro: Level of Consciousness is awake, alert, obeys commands, Oriented to person, place, time. Cardiovascular: Respiratory: Airway is patent Respiratory effort is even, unlabored, Respiratory pattern is regular, symmetrical. GI: Abdomen is non-distended. Derm: Skin is pink, warm \T\ dry. 07:10 Reassessment: Patient is alert, oriented x 3, equal unlabored respirations, skin aa5 warm/dry/pink. Patient states symptoms have not improved. Awaiting radiology results, pt notified of wait time and notified of need for urine specimen collection. Pt states he does not need pain medication at this time. . General: Appears comfortable. Vital Signs: 05:40 BP 153 / 93; Pulse 56; Resp 18; Pulse Ox 97% ; ea 08:18 BP 136 / 93; Pulse 57; Resp 18 S; Pulse Ox 95% on R/A; aa5 ED Course: 05:16 Patient arrived in ED. wm 05:40 Patient has correct armband on for positive identification. Bed in low position. Call ea light in reach. Side rails up X2. 05:42 Triage completed. ea 05:42 Arm band placed on right wrist. Patient placed in an exam room, on a stretcher, on ea pulse oximetry. 05:43 Inserted saline lock: 20 gauge in right antecubital area, using aseptic technique. ea 06:18 Saji Burnett PA is PHCP. cp 06:18 Hossein Franklin MD is Attending Physician. cp 07:30 CT Abd/Pelvis - IV Contrast Only In Process Unspecified. EDTX 07:33 Janki Stiles, KENNETH is Primary Nurse. aa5 08:44 Rashad Domínguez MD is Referral Physician. cp Administered Medications: 06:37 Drug: morphine 4 mg Route: IVP; Site: right antecubital; ea 06:37 Drug: Zofran (Ondansetron) 4 mg Route: IVP; Site: right antecubital; ea 06:37 Drug: NS 0.9% 1000 ml Route: IV; Rate: 1 bolus; Site: right antecubital; ea 07:00 Drug: Ativan (LORazepam) 1 mg Route: IVP; Site: right antecubital; em 07:04 Not Given (Physician Discretion): Ativan (LORazepam) 0.5 mg IVP once em 08:41 Drug: Ketorolac 15 mg Route: IVP; Site: right antecubital; tr6 08:41 Drug: Cipro (ciprofloxacin) 500 mg Route: PO; tr6 08:41 Drug: metroNIDAZOLE 500 mg Volume: 100 ml; Route: IVPB; Infused Over: 30 mins; Site: tr6 right antecubital; 08:41 Drug: Bentyl (dicyclomine) 20 mg Route: PO; tr6 Outcome: 08:44 Discharge ordered by . cp 09:44 Patient left the ED. iw Signatures: Dispatcher [employer] Zach Alicia, RN RN Edith Edward, RN RN Janki Selby, RN RN aa5 Saji Burnett PA PA cp Antunez, Elena, RN RN Janessa Garcia, RN RN tr6 Linsey Cheatham
--- NOTE | 2021-06-09 08:45 | EDPHYS ---
Physician Documentation [facility] Name: Jose Carrasco Jr Age: 41 yrs Sex: Male : 1980 Arrival Date: 06/09/2021 Time: 05:16 Bed 24 Private MD: ED Physician Hossein Franklin HPI: 06/09 06:30 This 41 yrs old Male presents to ER via Ambulatory with complaints of cp Abdominal Pain - LEFT SIDE. 06:30 The patient presents with abdominal pain in the left lower quadrant. Onset: The cp symptoms/episode began/occurred 3 day(s) ago, and became worse this morning. The symptoms do not radiate. Associated signs and symptoms: Pertinent negatives: blood in stools, constipation, diarrhea, dysuria, fever, testicular pain, vomiting. The symptoms are described as sharp. Severity of pain: in the emergency department the pain is unchanged despite home interventions. Historical: - Allergies: 05:42 No Known Drug Allergies; ea - PMHx: 05:42 Anxiety; Hypertension; ea - Immunization history:: Adult Immunizations up to date. - Social history:: Smoking status: Patient denies any tobacco usage or history of. ROS: 06:35 Constitutional: Negative for body aches, chills, fever, poor PO intake. cp 06:35 Eyes: Negative for injury, pain, redness, and discharge. cp 06:35 Cardiovascular: Negative for chest pain, edema, palpitations. 06:35 Respiratory: Negative for cough, shortness of breath, wheezing. 06:35 Abdomen/GI: Positive for abdominal pain, of the left lower quadrant, Negative for vomiting, diarrhea, constipation, anorexia, black/tarry stool, rectal bleeding. 06:35 Back: Negative for radiated pain. 06:35 : Negative for urinary symptoms, flank pain, testicular pain 06:35 Neuro: Negative for altered mental status, dizziness, headache, syncope, weakness. 06:35 All other systems are negative. Exam: 06:40 Constitutional: The patient appears in no acute distress, alert, awake, non-toxic, well cp developed, well nourished. 06:40 Head/Face: Normocephalic, atraumatic. cp 06:40 Eyes: Periorbital structures: appear normal, Conjunctiva: normal, no exudate, no injection, Sclera: no appreciated abnormality, Lids and lashes: appear normal, bilaterally. 06:40 ENT: External ear(s): are unremarkable, Nose: is normal, Mouth: Lips: moist, Oral mucosa: moist, Posterior pharynx: Airway: no evidence of obstruction, patent. 06:40 Chest/axilla: Inspection: normal, Palpation: is normal, no crepitus, no tenderness. 06:40 Cardiovascular: Rate: bradycardic, Rhythm: regular. 06:40 Respiratory: the patient does not display signs of respiratory distress, Respirations: normal, no use of accessory muscles, no retractions, labored breathing, is not present, Breath sounds: are clear throughout, no decreased breath sounds, no stridor, no wheezing. 06:40 Abdomen/GI: Inspection: abdomen appears normal, Bowel sounds: active, all quadrants, Palpation: soft, in all quadrants, moderate abdominal tenderness, in the left lower quadrant, rebound tenderness, is not appreciated, involuntary guarding, is not appreciated. 06:40 Back: pain, is absent, ROM is normal. Vital Signs: 05:40 BP 153 / 93; Pulse 56; Resp 18; Pulse Ox 97% ; ea 08:18 BP 136 / 93; Pulse 57; Resp 18 S; Pulse Ox 95% on R/A; aa5 MDM: 06:18 Patient medically screened. cp 07:00 Differential diagnosis: appendicitis, cholecystitis, Cholelithiasis, non-specific abd cp pain, pancreatitis, Pyelonephritis, Ureterolithiasis, urinary tract infection, diverticulitis. 08:44 Data reviewed: vital signs, nurses notes, lab test result(s), radiologic studies, CT cp scan. 08:44 Counseling: I had a detailed discussion with the patient and/or guardian regarding: the cp historical points, exam findings, and any diagnostic results supporting the discharge/admit diagnosis, lab results, radiology results, the need for outpatient follow up, a tree trimmer. Response to treatment: Pain improved. Discussed results of labs and CT abdomen/pelvis. On exam patient with moderate ttp LLQ abdomen. Will treat for diverticulitis with oral antibiotics and discharge to home for continued monitoring. 06/09 05:36 Order name: Basic Metabolic Panel; Complete Time: 06:38 em 06/09 06:38 Interpretation: Normal except: GFR 78. cp 06/09 05:36 Order name: CBC with Diff; Complete Time: 06:38 em 08 06:39 Interpretation: Reviewed. cp 06/09 05:36 Order name: Hepatic Function; Complete Time: 06:38 em 08 06:39 Interpretation: Normal except: AST 44; ALT 81; GLOB 3.8. cp 06/09 05:36 Order name: Lipase; Complete Time: 06:38 em 08 07:55 Order name: Urine Microscopic Only; Complete Time: 09:21 cp 06/09 09:21 Interpretation: Reviewed. cp 06/09 08:26 Order name: Urine Dipstick-Ancillary; Complete Time: 09:21 EDMS 06/09 09:21 Interpretation: Reviewed. cp 06/09 06:23 Order name: CT Abd/Pelvis - IV Contrast Only; Complete Time: 08:18 cp 06/09 05:36 Order name: IV Saline Lock; Complete Time: 05:40 em 06/09 05:36 Order name: Labs collected and sent; Complete Time: 05:40 em 06/09 07:55 Order name: Urine Dipstick-Ancillary (obtain specimen); Complete Time: 08:29 cp Administered Medications: 06:37 Drug: morphine 4 mg Route: IVP; Site: right antecubital; ea 06:37 Drug: Zofran (Ondansetron) 4 mg Route: IVP; Site: right antecubital; ea 06:37 Drug: NS 0.9% 1000 ml Route: IV; Rate: 1 bolus; Site: right antecubital; ea 07:00 Drug: Ativan (LORazepam) 1 mg Route: IVP; Site: right antecubital; em 07:04 Not Given (Physician Discretion): Ativan (LORazepam) 0.5 mg IVP once em 08:41 Drug: Ketorolac 15 mg Route: IVP; Site: right antecubital; tr6 08:41 Drug: Cipro (ciprofloxacin) 500 mg Route: PO; tr6 08:41 Drug: metroNIDAZOLE 500 mg Volume: 100 ml; Route: IVPB; Infused Over: 30 mins; Site: tr6 right antecubital; 08:41 Drug: Bentyl (dicyclomine) 20 mg Route: PO; tr6 Disposition Summary: 06/09/21 08:44 Discharge Ordered Location: Home cp Problem: new cp Symptoms: have improved cp Condition: Stable cp Diagnosis - Lower abdominal pain, unspecified cp Followup: cp - With: Rashad Domínguez MD - When: 2 - 3 days - Reason: Recheck today's complaints Discharge Instructions: - Discharge Summary Sheet cp - Abdominal Pain, Adult cp - Diverticulitis cp Forms: - Medication Reconciliation Form cp - Thank You Letter cp - Antibiotic Education cp - Prescription Opioid Use cp - Work release form iw Prescriptions: - Zofran 4 mg Oral Tablet - take 1 tablet by ORAL route every 12 hours As needed; 20 tablet; Refills: 0, cp Product Selection Permitted - Cipro 500 mg Oral Tablet - take 1 tablet by ORAL route every 12 hours for 8-10 days; 20 tablet; Refills: cp 0, Product Selection Permitted - Metronidazole 500 mg Oral Tablet - take 1 tablet by ORAL route every 8 hours; 30 tablet; Refills: 0, Product cp Selection Permitted - dicyclomine 20 mg Oral Tablet - take 1 tablet by ORAL route 4 times per day; 30 tablet; Refills: 0, Product cp Selection Permitted Addendum: 06/11/2021 19:06 Co-signature as Attending Physician, Hossein george Signatures: Dispatcher [employer] Hossein Dotson MD MD pkl Munoz, Edgar RN RN Saji Rico PA PA cp Shereen Alvarado RN RN Janessa Garcia RN RN tr6 Corrections: (The following items were deleted from the chart) 06/09 06:39 06:39 Normal except: AST 44; ALT 81. cp cp
[2021-06-09 08:53] LABS: Urine Bacteria <20 /HPF (NONE SEEN); Urine RBC <5 /HPF (NONE SEEN)
[2021-06-09] MEDS ORDERED: DICYCLOMINE HCL 10 MG CAP ONE (08:57)
[2021-06-09] MEDS ORDERED: CIPROFLOXACIN HCL 500 MG TAB ONE (08:57)
[2021-06-09] MEDS ORDERED: KETOROLAC 30 MG/ML INJ ONE (08:58)
[2021-06-09] MEDS ORDERED: NA CHLORIDE 0.9% 100 ML ONE (08:58)
[2021-06-09] MEDS ORDERED: METRONIDAZOLE 500mg IVPB 500 MG/100 ML BAG IV ONE (08:58)
[2021-06-09 09:58] VITALS: BP 136/93; O2SAT 95
== END 2021-06-09 09:44 | disposition home or self-care (01) ==
LOC: ER 05:15
DX: R10.32 Left lower quadrant pain (principal); I10 Essential (primary) hypertension
CPT/HCPCS: 85025; 80048; 36415; 80076; 83690; 74177; Q9967; J7030; J2405; 81003; 81015

== ENCOUNTER 2023-06-24 06:38 | Emergency (ER) | payer BC ==
--- OUTSIDE RECORDS SUMMARY | 2023-06-24 06:44 | XMS REPORT | Continuity of Care Document ---
:1980 Author Organization [facility] t Address [address] [place] [address] [address] [place] [address] Care Team Providers Name Role Phone Asked, No Pcp Primary Care Physician Unavailable Trevon, General Cardiology Attending Clinician Unavailable GIOVANNI HERMAN Attending Clinician Unavailable Giovanni Herman NP Attending Clinician MEAGAN BOWER Attending Clinician Unavailable Meagan Bower DO Attending Clinician Doctor Unassigned, [place] Attending Clinician Unavailable ROXANA SHAH Attending Clinician Unavailable Roxana Shah DO Attending Clinician Pastora CLARK Attending Clinician Unavailable Pastora Hendricks Attending Clinician PAULA FINLEY Attending Clinician Unavailable Paula Finley MD Attending Clinician Esequiel Mahajan Attending Clinician Sylvia Mosley Attending Clinician SYLVIA RICHMOND Attending Clinician Unavailable GIOVANNI HERMAN Admitting Clinician Unavailable MEAGAN BOWER Admitting Clinician Unavailable ROXANA SHAH Admitting Clinician Unavailable PAULA FINLEY Admitting Clinician Unavailable SYLVIA RICHMOND Admitting Clinician Unavailable Payers Payer Name Policy Type Policy Number Effective Date Expiration Date S ource Problems Condition Condition Condition Status Onset Resolution Last Treating Co mments Source Name Details Category Date Date Treatment Clinician Date Generalize Generalize Disease Active U nivers d anxiety d anxiety 07-31 ity of disorder disorder 00:00: [address] Essential Essential Disease Active Uni vers (primary) (primary) 07-31 it[place] hypertens[place] COVID-19 COVID-19 Disease Active Unive rs 07-31 ity of 00:00: [address] No known No known Disease Unive rs active active ity of problems problems [facility] Allergies, Adverse Reactions, Alerts Allergy Allergy Status Severity Reaction(s) Onset Inactive Treating Comm ents Source Name Type Date Date Clinician NO KNOWN Drug Active Univers ALLERGIE Class ity of S [facility] Family History Family Member Diagnosis Comments Start Date Stop Date Source Natural father No Known Problems Met [facility] Natural mother No Known Problems Met [facility] Social History Social Habit Start Date Stop Date Quantity Comments Source History of tobacco Smokes tobacco Me thodist use daily Hospital Gender identity Scientologist [facility] Sexual orientation Method ist Hospital Exposure to 2023-02-25 2023-03-07 Not sure University SARS-CoV-2 (event) 00:00:00 13:09:00 [facility] Tobacco use and 2017-05-20 2017-05-20 Smokeless Scientologist exposure 00:00:00 00:00:00 tobacco non-user Hospital Alcohol intake 2017-05-20 2017-05-20 Current drinker [facility] 00:00:00 00:00:00 of alcohol Hospital (finding) History of Social 2017-05-20 2017-05-20 [facility] function 00:00:00 00:00:00 Hospital Sex Assigned At [birth year] Scientologist 00:00:00 00:00:00 Hospital Smoking Status Start Date Stop Date Source Tobacco smoking consumption Univ ersity [facility] Smokes tobacco daily 2017-05-20 00:00:00 [facility] Medications Ordered Filled Start Stop Current Ordering Indication Dosage Frequency Signature Comments Components Source Medication Medication Date Date Medication? Clinician (SIG) Name Name LORazepam No 1mg 1 mg, Slow U nivers (ATIVAN) 03-07 IV Push, ity of injection 1 22:00: 21:18 [place]CE, 1 [place] mg 00 :00 dose, On Medical [place] 03/07/23 at 1700, Routine ketorolac 2022- No 30mg 30 mg, Unive rs (TORADOL) 03-07 Slow IV ity of injection 20:15: 19:20 Push, [place] 30 mg 00 :00 ONCE, 1 Medical dose, On Branch 03/07/23 at 1515, Routine pantoprazol 2022- No 40mg 40 mg, Uni vers e 03-07 Slow IV ity of (PROTONIX) 20:00: 19:16 Push, [place] injection 00 :00 ONCE, 1 Medical 40 mg dose, On Branch 03/07/23 at 1500 ondansetron 2022- No 4mg 4 mg, Slow Univers (ZOFRAN 03-07 IV Push, ity of (PF)) 19:15: 19:16 ONCE, 1 [place] injection 4 00 :00 dose, On Medi miriam mg [place] Branch 03/07/23 at 1415, MAXIM maalox:diph 2022- No 15mL 15 mL, Uni vers enhydrAMINE 03-07 Oral, ity of :lidocaine 19:15: 19:16 ONCE, 1 [place] 2 % viscous 00 :00 dose, On Medi miriam 1:1:1 [place] [facility] (FIRST-MOUT 03/07/[address] [facility]) 1415, oral Routine suspension 15 mL famotidine 2022- No [id number] 20mg Take 1 Univers (PEPCID) 20 03-07-22 tablet by it y of mg tablet 00:00: 04:59 mouth at [place] 00 :00 bedtime Medical for 21 Branch days. famotidine 2022- No [id number] 20mg Take 1 Univers (PEPCID) 20 03-07 05-22 tablet by it y of mg tablet 00:00: 04:59 mouth at [place] 00 :00 bedtime Medical for 21 Branch days. sucralfate 2022- No [id number] 1g Take 1 Univers 1 gram 03-07 05-11 tablet by ity of tablet 00:00: 04:59 mouth [place] 00 :00 before Medical meals and Branch at bedtime for 10 days. sucralfate 2022- No [id number] 1g Take 1 Univers 1 gram 4-30 05-11 tablet by ity of tablet 00:00: 04:59 mouth [place] 00 :00 before Medical meals and Branch at bedtime for 10 days. NaCl 0.9% 2022- No [id number] 1000mL at 999 Univers (NS) bolus 01-09 03-04 mL/hr, ity of infusion 19:00: 20:21 1,000 mL, [place] 1,000 mL 00 :00 IV Medical Infusion, Branch ONCE, 1 dose, On 01/09/23 at 1300, MAXIM iopamidol 2022- No [id number] 88mL 88 mL, Univers (ISOVUE 01-09-04 Intravenou ity o f 370-500 mL) 18:40: 19:00 s, ONCE, 1 [place] injection 00 :00 dose, On Medica l 88 mL 01/09/23 Branch at 1300, Routine famotidine 2022- No [id number] 20mg 20 mg, Univers (PEPCID 01-09-04 Slow IV ity of (PF)) 18:15: 18:26 Push, [place] injection 00 :00 ONCE, 1 Medical 20 mg dose, On Branch 01/09/23 at 1215, MAXIM ondansetron 2022- No [id number] 4mg 4 mg, Slow Univers (ZOFRAN 01-09-04 IV Push, ity of (PF)) 18:15: 18:24 ONCE, 1 [place] injection 4 00 :00 dose, On Medi miriam mg 01/09/23 Branch at 1215, MAXIM metoprolol 0 Yes [id number] 50mg Take 1 Univers succinate 3-04 tablet by ity o f XL 50 mg 24 14:24: mouth in [facility] tablet 25 the Medical morning. Branch amLODIPine Yes [id number] 5mg Take 1 Univers 5 mg tablet 3-04 tablet by ity of 14:24: mouth in [place] 25 the Medical morning. Branch metoprolol Yes [id number] 50mg Take 1 Univers succinate 3-04 tablet by ity o f XL 50 mg 24 14:24: mouth in [place] hr tablet 25 the Medical morning. Branch amLODIPine 2022-0 Yes [id number] 5mg Take 1 Univers 5 mg tablet 3-04 tablet by ity of 14:24: mouth in [place] 25 the Medical morning. Branch metoprolol 2022-0 Yes [id number] 50mg Take 1 Univers succinate 3-04 tablet by ity o f XL 50 mg 24 14:24: mouth in [place] tablet 25 the Medical morning. Branch amLODIPine 2022-0 Yes [id number] 5mg Take 1 Univers 5 mg tablet 3-04 tablet by ity of 14:24: mouth in [place] 25 the Medical morning. Branch ondansetron Yes [id number] 4mg Take 1 Univers 4 mg 3-04 tablet by ity of disintegrat 00:00: mouth [place] ing tablet 00 every 8 Medica l (eight) Branch hours as needed for Nausea and Vomiting (N/V). ondansetron Yes [id number] 4mg Take 1 Univers 4 mg 3-04 tablet by ity of disintegrat 00:00: mouth [place] ing tablet 00 every 8 Medica l (eight) Branch hours as needed for Nausea and Vomiting (N/V). ondansetron Yes [id number] 4mg Take 1 Univers 4 mg 3-04 tablet by ity of disintegrat 00:00: mouth [place] ing tablet 00 every 8 Medica l (eight) Branch hours as needed for Nausea and Vomiting (N/V). famotidine 2022- No [id number] 40mg Take 1 Univers 40 mg 3-04 -26 tablet by ity of tablet 00:00: 04:59 mouth in [place] 00 :00 the Medical morning Branch for 21 days. FENTanyl PF 2021- No 50ug 50 mcg, Un jone (SUBLIMAZE 01-16 Slow IV ity o f (PF)) 22:00: 21:06 Push, [place] injection 00 :00 ONCE, 1 Medical 50 mcg dose, On Branch Wed01/16/22 at 1600, Routine FENTanyl PF 2021- No 50ug 50 mcg, Un jone (SUBLIMAZE 01-16 Slow IV ity o f (PF)) 20:30: 19:57 Push, [place] injection 00 :00 ONCE, 1 Medical 50 mcg dose, On Branch Wed01/16/22 at 1430, Routine amLODIPine No 5mg 5 mg, Unive rs (NORVASC) 01-16 Oral, ity of tablet 5 mg 19:00: 18:14 ONCE, 1 [place] 00 :[place] dose, On Medical 01/16/22 at 1300, MAXIM ketorolac No 30mg 30 mg, Unive rs (TORADOL) 01-16 Slow IV ity of injection 19:00: 18:14 Push, [place] 30 mg 00 :00 ONCE, 1 Medical dose, On Branch Wed01/16/22 at 1300, MAXIM famotidine No 20mg 20 mg, Univ ers (PEPCID 01-16 Slow IV ity of (PF)) 19:00: 18:14 Push, [place] injection 00 :00 ONCE, 1 Medical 20 mg dose, On Branch Wed01/16/22 at 1300, Routine amLODIPine No [id number] 5mg Take 1 Univers (NORVASC) 5 01-16 tablet by it y of mg tablet 00:00: 04:59 mouth [place] 00 :00 daily for Medical 30 days. [place] ketorolac 2020-11 No 15mg 15 mg, Unive rs (TORADOL) 12-30 Slow IV ity of injection 18:00: 17:06 Push, [place] 15 mg 00 :00 ONCE, 1 Medical dose, On Branch Wed10/29/21 at 1200, MAXIM
Fa culty member approving Restricted medication : Pastora CLARK diphenhydrA 2020-11 No 25mg 25 mg, Uni vers MINE 12-30 Slow IV ity of (BENADRYL) 18:00: 17:06 Push, [place] injection 00 :00 ONCE, 1 Medical 25 mg dose, On Branch Wed10/29/21 at 1200, STAT metoclopram 2020-11 No 10mg 10 mg, Uni vers angella HCl 12-30 Slow IV ity of (REGLAN) 18:00: 17:06 Push, [place] injection 00 :00 ONCE, 1 Medical 10 mg dose, On Branch Wed10/29/21 at 1200, MAXIM NaCl 0.9% 2020-11- No 1000mL at 999 Uni vers (NS) bolus 2-22 12-22 mL/hr, ity of infusion 18:00: 19:00 1,000 mL, [place] 1,000 mL 00 :00 IV Medical Infusion, Branch ONCE, 1 dose, On Wed10/29/21 at 1200, STAT iopamidol 2020-11- No [id number] 120mL 120 mL, Univers (ISOVUE -29 10- Intravenou ity o f 370-500 mL) 06:30: 05:01 s, ONCE, 1 [place] injection 00 :00 dose, On Medica l 120 mL 10/29/21 at 0030, Routine NaCl 0.9% 2020-11- No 1000mL at 999 Uni vers (NS) bolus 2- 12-22 mL/hr, ity of infusion 05:30: 06:23 1,000 mL, [place] 1,000 mL 00 :00 IV Medical Infusion, Branch ONCE, 1 dose, On Wed10/28/21 at 2330, MAXIM ibuprofen 2020-11 Yes [id number] 600mg Take 1 U nivers 600 mg 2-22 tablet by ity of tablet 00:00: mouth [place] 00 every 6 Medical (six) Branch hours as needed for Pain (scale 4-6). ondansetron 2020-11 Yes [id number] 4mg Take 1 Univers (ZOFRAN 2-22 tablet by ity of ODT) 4 mg 00:00: mouth [place] disintegrat 00 every 8 Medic al ing tablet (eight) Branch hours as needed for Nausea and Vomiting (N/V). methocarbam 2020-11 Yes [id number] 500mg Take 1 Univers oL 500 mg 2-22 tablet by ity o f tablet 00:00: mouth 4 [place] 00 (four) Medical times Branch daily. ibuprofen 2020-11 Yes [id number] 600mg Take 1 U nivers 600 mg 2-22 tablet by ity of tablet 00:00: mouth [place] 00 every 6 Medical (six) Branch hours as needed for Pain (scale 4-6). ondansetron 2020-11 Yes [id number] 4mg Take 1 Univers (ZOFRAN 2-22 tablet by ity of ODT) 4 mg 00:00: mouth [place] disintegrat 00 every 8 Medic al ing tablet (eight) Branch hours as needed for Nausea and Vomiting (N/V). methocarbam 2020-11 Yes [id number] 500mg Take 1 Univers oL 500 mg 2-22 tablet by ity o f tablet 00:00: mouth 4 [place] 00 (four) Medical times Branch daily. ibuprofen 2020-11 Yes [id number] 600mg Take 1 U nivers 600 mg 2-22 tablet by ity of tablet 00:00: mouth [place] 00 every 6 Medical (six) Branch hours as needed for Pain (scale 4-6). ondansetron 2020-11 Yes [id number] 4mg Take 1 Univers (ZOFRAN 2-22 tablet by ity of ODT) 4 mg 00:00: mouth [place] disintegrat 00 every 8 Medic al ing tablet (eight) Branch hours as needed for Nausea and Vomiting (N/V). methocarbam 2020-11 Yes [id number] 500mg Take 1 Univers oL 500 mg 2-22 tablet by ity o f tablet 00:00: mouth 4 [place] 00 (four) Medical times Branch daily. ibuprofen 2020-11 Yes [id number] 600mg Take 1 U nivers 600 mg 2-22 tablet by ity of tablet 00:00: mouth [place] 00 every 6 Medical (six) Branch hours as needed for Pain (scale 4-6). ondansetron 2020-11 Yes [id number] 4mg Take 1 Univers (ZOFRAN 2-22 tablet by ity of ODT) 4 mg 00:00: mouth [place] disintegrat 00 every 8 Medic al ing tablet (eight) Branch hours as needed for Nausea and Vomiting (N/V). methocarbam 2020-11 Yes [id number] 500mg Take 1 Univers oL 500 mg 2-22 tablet by ity o f tablet 00:00: mouth 4 [place] 00 (four) Medical times Branch daily. ibuprofen 2020-11- No [id number] 600mg Take 1 Univers 600 mg 2-22 03-04 tablet by ity of tablet 00:00: 00:00 mouth [place] 00 :00 every 6 Medical (six) Branch hours as needed for Pain (scale 4-6). ondansetron 2020-11- No [id number] 4mg Take 1 Univers (ZOFRAN 12-30 tablet by ity of ODT) 4 mg 00:00: 00:00 mouth [place] disintegrat 00 :00 every 8 Medic al ing tablet (eight) Branch hours as needed for Nausea and Vomiting (N/V). methocarbam 2020-11- No [id number] 500mg Take 1 Univers oL 500 mg 12-30 tablet by ity of tablet 00:00: 00:00 mouth 4 [place] 00 :00 (four) Medical times Branch daily. acetaminoph 2020- No 1000mg 1,000 mg, Univers en 06-12 Oral, ity of (TYLENOL) 17:30: 16:28 ONCE, 1 [place] tablet 00 :00 dose, [facility] Medical 1,000 mg 06/12/21 at Branch 1230, Routine albuterol 2020- No 8{puff} 8 Puff, U nivers (VENTOLIN) 06-12 Inhalation it y of inhaler 8 17:30: 16:36 , ONCE, 1 [place] Puff 00 :00 dose, [facility] Medical 06/12/21 at Branch 1230, MAXIM benzonatate No 100mg 100 mg, U nivers (TESSALON 06-12 Oral, ity of PERLES) 17:30: 16:30 ONCE, 1 [place] capsule 100 00 :00 dose, [place] Med ical mg 06/12/21 at Branch 1230, Routine NaCl 0.9% Yes 1000mL at 999 Univ ers (NS) IV 8-05 mL/hr, ity of infusion 17:00: Intravenou [place] 1,000 mL 00 s, Medical CONTINUOUS Branch , Starting [place] 06/12/21 at 1200, Until Discontinu ed, MAXIM albuterol 0 Yes [id number] 4{puff} Inhale 4 Univers 90 8-05 Puffs ity of mcg/actuati 00:00: every 4 [place] on inhaler 00 (four) Medical hours as Branch needed for Wheezing or Shortness of Breath. benzonatate Yes [id number] 100mg Take 1 Univers 100 mg - capsule by ity of capsule 00:00: mouth 3 [place] 00 (three) Medical times Branch daily as needed for Cough. albuterol 2020-0 Yes [id number] 4{puff} Inhale 4 Univers 90 8-05 Puffs ity of mcg/actuati 00:00: every 4 [place] on inhaler 00 (four) Medical hours as Branch needed for Wheezing or Shortness of Breath. benzonatate 2020-0 Yes [id number] 100mg Take 1 Univers 100 mg 8-05 capsule by ity of capsule 00:00: mouth (three) Medical times Branch daily as needed for Cough. albuterol 2020-0 Yes [id number] 4{puff} Inhale 4 Univers 90 8-05 Puffs ity of mcg/actuati 00:00: every 4 [place] on inhaler 00 (four) Medical hours as Branch needed for Wheezing or Shortness of Breath. benzonatate 2020-0 Yes [id number] 100mg Take 1 Univers 100 mg 8-05 capsule by ity of capsule 00:00: mouth (three) Medical times Branch daily as needed for Cough. albuterol 2020-0 Yes [id number] 4{puff} Inhale 4 Univers 90 8-05 Puffs ity of mcg/actuati 00:00: every 4 [place] on inhaler 00 (four) Medical hours as Branch needed for Wheezing or Shortness of Breath. benzonatate 2020-0 Yes [id number] 100mg Take 1 Univers 100 mg 8-05 capsule by ity of capsule 00:00: mouth (three) Medical times Branch daily as needed for Cough. albuterol 2020-0 Yes [id number] 4{puff} Inhale 4 Univers 90 8-05 Puffs ity of mcg/actuati 00:00: every 4 [place] on inhaler 00 (four) Medical hours as Branch needed for Wheezing or Shortness of Breath. benzonatate 2020-0 Yes [id number] 100mg Take 1 Univers 100 mg 8-05 capsule by ity of capsule 00:00: mouth (three) Medical times Branch daily as needed for Cough. albuterol 2020-0 Yes [id number] 4{puff} Inhale 4 Univers 90 8-05 Puffs ity of mcg/actuati 00:00: every 4 [place] on inhaler 00 (four) Medical hours as Branch needed for Wheezing or Shortness of Breath. benzonatate Yes [id number] 100mg Take 1 Univers 100 mg 8-05 capsule by ity of capsule 00:00: mouth 3 [place] 00 (three) Medical times Branch daily as needed for Cough. albuterol 2022- No [id number] 4{puff} Inhale 4 Univers 90 8-05 03-04 Puffs ity of mcg/actuati 00:00: 00:00 every 4 [place] on inhaler 00 :00 (four) Medical hours as Branch needed for Wheezing or Shortness of Breath. benzonatate 2022- No [id number] 100mg Take 1 Univers 100 mg 8-05 03-04 capsule by ity of capsule 00:00: 00:00 mouth 3 [place] 00 :00 (three) Medical times Branch daily as needed for Cough. LORazepam 2020- No 1mg 1 mg, Slow U nivers (ATIVAN) 04-07- IV Push, ity of injection 1 01:45: 00:49 ONCE, 1 [place] mg 00 :00 dose, [facility] 04/06/21 at Branch 2045, STAT NaCl 0.9% 2020- No 1000mL at 999 Uni vers (NS) bolus 04-07- mL/hr, ity of infusion 00:30: 01:46 1,000 mL, [place] 1,000 mL 00 :00 IV Medical Infusion, [place] ONCE, 1 dose, [place] 04/06/21 at 1930, MAXIM LORazepam 2020- No 1mg 1 mg, Slow U nivers (ATIVAN) 02-27 04-22 IV Push, ity of injection 1 06:45: 05:36 ONCE, 1 [place] mg 00 :00 dose, [facility] 02/27/21 at Branch 0145, STAT hydrOXYzine 2020-0 Yes [id number] 10mg Take 1 Univers 10 mg 4-22 tablet by ity of tablet 00:00: mouth [place] 00 every 6 Medical (six) Branch hours as needed for Anxiety. hydrOXYzine 2020-0 Yes [id number] 10mg Take 1 Univers 10 mg 4-22 tablet by ity of tablet 00:00: mouth [place] 00 every 6 Medical (six) Branch hours as needed for Anxiety. hydrOXYzine 2020-0 Yes [id number] 10mg Take 1 Univers 10 mg 4-22 tablet by ity of tablet 00:00: mouth [place] 00 every 6 Medical (six) Branch hours as needed for Anxiety. hydrOXYzine 2020-0 Yes [id number] 10mg Take 1 Univers 10 mg 4-22 tablet by ity of tablet 00:00: mouth [place] 00 every 6 Medical (six) Branch hours as needed for Anxiety. hydrOXYzine 2020-0 Yes [id number] 10mg Take 1 Univers 10 mg 4-22 tablet by ity of tablet 00:00: mouth [place] 00 every 6 Medical (six) Branch hours as needed for Anxiety. hydrOXYzine 2020-0 Yes [id number] 10mg Take 1 Univers 10 mg 4-22 tablet by ity of tablet 00:00: mouth [place] 00 every 6 Medical (six) Branch hours as needed for Anxiety. hydrOXYzine 0 Yes [id number] 10mg Take 1 Univers 10 mg 4-22 tablet by ity of tablet 00:00: mouth [place] 00 every 6 Medical (six) Branch hours as needed for Anxiety. hydrOXYzine 0 Yes [id number] 10mg Take 1 Univers 10 mg 4-22 tablet by ity of tablet 00:00: mouth [place] 00 every 6 Medical (six) Branch hours as needed for Anxiety. hydrOXYzine 2022- No [id number] 10mg Take 1 Univers 10 mg 4-22 03-04 tablet by ity of tablet 00:00: 00:00 mouth [place] 00 :00 every 6 Medical (six) Branch hours as needed for Anxiety. No known 2016- No No known Metho di medications 7-[address] 21:58: [facility] No known No [facility]i medications [facility] Vital Signs Vital Name Observation Time Observation Value Comments Source Heart rate 2023-03-07 22:00:00 61 /min Universi ty of [facility] Systolic blood 2023-03-07 21:00:00 137 mm[Hg] Univer sity [facility] Diastolic blood 2023-03-07 21:00:00 91 mm[facility]Hg[facility] 2023-03-07 21:00:00 20 /[facility] 2023-03-07 21:00:00 95 /min University of Arterial blood by [place] [facility]iam Pulse oximetry Branch Body temperature 2023-03-07 18:10:00 37 Heide Univ [facility] [place] [facility] Body height 2023-03-07 18:10:00 180.3 cm [facility] [place] [facility] Body weight 2023-03-07 18:10:00 97.523 kg [facility] [place] [facility] BMI 2023-03-07 18:10:00 29.99 kg/m2 [facility] [place] [facility] Systolic blood 2023-01-09 20:00:00 106 mm[Hg] Univer sity of pressure [place] [facility] Diastolic blood 2023-01-09 20:00:00 76 mm[Hg] Unive rsity of pressure [place] [facility] Heart rate 2023-01-09 20:00:00 74 /min [facility] [place] [facility] Respiratory rate 2023-01-09 20:00:00 18 /min [facility] [place] [facility] Oxygen saturation in 2023-01-09 20:00:00 96 /min University of Arterial blood by [place] Medi miriam Pulse oximetry Branch Body temperature 2023-01-09 17:43:00 37.39 Heide [facility] [place] [facility] Body height 2023-01-09 17:43:00 180.3 cm [facility] [place] [facility] Body weight 2023-01-09 17:43:00 94.802 kg [facility] [place] [facility] BMI 2023-01-09 17:43:00 29.15 kg/m2 [facility] [place] [facility] Systolic blood 2022-04-08 17:00:00 139 mm[Hg] Univer sity of pressure [place] [facility] Diastolic blood 2022-04-08 17:00:00 98 mm[Hg] Unive rsity of pressure [place] [facility] Heart rate 2022-04-08 17:00:00 67 /min [facility] [place] [facility] Respiratory rate 2022-04-08 17:00:00 18 /min Univ [facility] [place] [facility] Oxygen saturation in 2022-04-08 17:00:00 99 /min University of Arterial blood by [place] Medi miriam Pulse oximetry Branch Body temperature 2022-04-08 14:55:00 36.28 Heide [facility] [place] [facility] Body height 2022-04-08 14:55:00 180.3 cm [facility] [place] [facility] Body weight 2022-04-08 14:55:00 95.255 kg [facility] [place] [facility] BMI 2022-04-08 14:55:00 29.29 kg/m2 [facility] [place] [facility] Systolic blood 2022-01-16 21:09:00 165 mm[Hg] Univer sity of pressure [place] [facility] Diastolic blood 2022-01-16 21:09:00 104 mm[Hg] Unive rsity of pressure [place] [facility] Heart rate 2022-01-16 21:09:00 76 /min [facility] [place] [facility] Respiratory rate 2022-01-16 21:09:00 16 /min Univ [facility] [place] [facility] Oxygen saturation in 2022-01-16 21:09:00 98 /min University of Arterial blood by [place] Medi miriam Pulse oximetry Branch Body temperature 2022-01-16 17:42:49 36.61 Heide Univ [facility] [place] [facility] Body weight 2022-01-16 17:19:00 90.719 kg [facility] [place] [facility] BMI 2022-01-16 17:19:00 30.41 kg/m2 [facility] [place] [facility] Systolic blood 2021-10-29 19:00:00 121 mm[Hg] Univer sity of pressure [place] [facility] Diastolic blood 2021-10-29 19:00:00 95 mm[Hg] Unive rsity of pressure [place] [facility] Heart rate 2021-10-29 19:00:00 83 /min [facility]i [facility] [place] [facility] Respiratory rate 2021-10-29 19:00:00 23 /min Univ [facility] [place] [facility] Oxygen saturation in 2021-10-29 19:00:00 97 /min University of Arterial blood by [place] Medi miriam Pulse oximetry Branch Body temperature 2021-10-29 16:51:31 37.28 Heide [facility] [place] [facility] Body height 2021-10-29 16:25:00 172.7 cm [facility] [place] [facility] Body weight 2021-10-29 16:25:00 90.719 kg [facility] [place] [facility] BMI 2021-10-29 16:25:00 30.41 kg/m2 [facility] [place] [facility] Systolic blood 2021-10-29 06:30:00 132 mm[Hg] Univer sity of pressure [place] [facility] Diastolic blood 2021-10-29 06:30:00 92 mm[Hg] Unive rsity of pressure [place] [facility] Heart rate 2021-10-29 06:30:00 109 /min [facility]i [facility] [place] [facility] Respiratory rate 2021-10-29 06:30:00 18 /min Univ [facility] [place] [facility] Oxygen saturation in 2021-10-29 06:30:00 98 /min University of Arterial blood by [facility] Pulse oximetry Branch Body temperature 2021-10-29 04:25:00 37.11 Heide Univ [facility] [place] [facility] Body height 2021-10-29 04:24:24 177.8 cm [facility] [place] [facility] Body weight 2021-10-29 04:24:24 90.719 kg [facility] [place] [facility] BMI 2021-10-29 04:24:24 28.70 kg/m2 [facility] [place] [facility] Systolic blood 2021-06-12 17:00:00 158 mm[Hg] Univer sity of pressure [place] [facility] Diastolic blood 2021-06-12 17:00:00 96 mm[Hg] Unive rsity of pressure [place] [facility] Heart rate 2021-06-12 17:00:00 105 /min [facility] [place] [facility] Respiratory rate 2021-06-12 17:00:00 20 /min Univ ersity [facility] [place] [facility] Oxygen saturation in 2021-06-12 17:00:00 97 /min University of Arterial blood by [facility] Pulse oximetry Branch Body temperature 2021-06-12 15:50:55 38.33 Heide Univ [facility] [place] [facility] Body weight 2021-06-12 12:00:00 96.616 kg [facility] [place] [facility] Systolic blood 2021-04-07 01:30:00 113 mm[Hg] Univer sity of pressure [place] [facility] Diastolic blood 2021-04-07 01:30:00 73 mm[Hg] Unive rsity of pressure [place] [facility] Heart rate 2021-04-07 01:30:00 58 /min [facility]i ty [facility] [place] [facility] Respiratory rate 2021-04-07 01:30:00 15 /min [facility] Oxygen saturation in 2021-04-07 01:30:00 92 /min [facility] Arterial blood by [facility] miriam Pulse oximetry Branch Body temperature 2021-04-07 00:22:00 36.67 Heide [facility] [place] [facility] Body weight 2021-04-07 00:22:00 96.616 kg [facility] Systolic blood 2021-04-07 01:30:00 113 mm[Hg] [facility] [place] [facility] Diastolic blood 2021-04-07 01:30:00 73 mm[Hg] [facility] [place] [facility] Heart rate 2021-04-07 01:30:00 58 /min [facility] Respiratory rate 2021-04-07 01:30:00 15 /min [facility] Oxygen saturation in 2021-04-07 01:30:00 92 /min [facility] Arterial blood by [facility] Pulse oximetry Branch Body temperature 2021-04-07 00:22:00 36.67 Heide [facility] Body weight 2021-04-07 00:22:00 96.616 kg [facility] Systolic blood 2021-02-27 06:48:00 134 mm[Hg] [facility] Diastolic blood 2021-02-27 06:48:00 85 mm[Hg] [facility] Heart rate 2021-02-27 06:48:00 75 /min [facility] Respiratory rate 2021-02-27 06:48:00 19 /min [facility] Oxygen saturation in 2021-02-27 06:48:00 95 /min [facility] Arterial blood by [facility] miriam Pulse oximetry Branch Body weight 2021-02-27 05:23:00 94.348 kg [facility] Systolic blood 2021-02-27 06:48:00 134 mm[Hg] [facility] [place] [facility] Diastolic blood 2021-02-27 06:48:00 85 mm[Hg] [facility] [place] [facility] Heart rate 2021-02-27 06:48:00 75 /min [facility] Respiratory rate 2021-02-27 06:48:00 19 /min [facility] Oxygen saturation in 2021-02-27 06:48:00 95 /min [facility] Arterial blood by [facility] Pulse oximetry Branch Body weight 2021-02-27 05:23:00 94.348 kg [facility] Procedures Procedure Date / Time Performing Clinician Source Performed URINALYSIS 2023-03-07 19:51:[address] [facility] URINE DRUG (IMMUNOASSAY) 2023-03-07 19:51:00 [facility] SCREEN W/O REFLEX LIPASE 2023-03-07 19:07:[address] [facility] TROPONIN I 2023-03-07 19:07:[address] [facility] THYROID STIMULATING 2023-03-07 19:07:00 Giovanni Herman [facility] HORMONE [facility] COMP. METABOLIC PANEL 2023-03-07 19:07:00 Giovanni Herman [facility] ([id number]) [facility] CBC WITH DIFF 2023-03-07 19:07:[address] [facility] N-TERMINAL PRO-BNP 2023-03-07 19:07:00 Giovanni Herman [facility] CONSENT/REFUSAL FOR 2023-03-07 18:01:10 Doctor Unassigned, [facility] DIAGNOSIS AND TREATMENT [place] [facility] CT ABDOMEN PELVIS W 2023-01-09 18:47:11 Giovanni Herman [facility] CONTRAST [facility] COMP. METABOLIC PANEL 2023-01-09 18:23:00 Giovanni Herman [facility] ([id number]) [facility] CBC WITH DIFF 2023-01-09 18:23:[address] [facility] PROTHROMBIN TIME / INR 2023-01-09 18:23:00 Giovanni Herman [facility] ACTIVATED PARTIAL 2023-01-09 18:23:00 Giovanni Herman [facility] THRMPLAS MARTÍN [facility] COVID-19 (ID NOW RAPID 2023-01-09 18:23:00 Giovanni [facility] [place] [facility] URINALYSIS 2023-01-09 18:02:[address] [facility] NOTICE OF PRIVACY 2023-01-09 17:33:51 Doctor Unadasha, [facility] PRACTICES [facility] [facility] CONSENT/REFUSAL FOR 2023-01-09 17:33:07 Doctor Unasselizabet, [facility] DIAGNOSIS AND TREATMENT [place] [facility] [place] XR CHEST 1 VW 2022-04-08 15:31:56 Singer [facility] MAGNESIUM 2022-04-08 15:19[facility] 2022-04-08 15:19:00 [facility] COMP. METABOLIC PANEL 2022-04-08 15:19:00 Meagan Bower [facility] ([id number]) [facility] CBC WITH DIFF 2022-04-08 15:19:00 Bower [facility] N-TERMINAL PRO-BNP 2022-04-08 15:19:00 Singer [facility] MEDICATION CORRESPONDENCE 2022-02-17 05:01:00 Doctor Ernestina, [facility] Name [facility] XR CHEST 1 VW 2022-01-16 18:00:09 Roxana Shah [facility] CBC WITH DIFF 2022-01-16 17:27:00 Roxana Shah [facility] LIPASE 2022-01-16 17:26:00 Roxana Shah [facility] TROPONIN I 2022-01-16 17:26:00 Roxana Shah [facility] COMP. METABOLIC PANEL 2022-01-16 17:26:00 Roxana Shah [facility] ([id number]) [facility] PROTHROMBIN TIME / INR 2022-01-16 17:26:00 [facility] [facility] 2022-01-16 17:26:00 Roxana Shah [facility] THRMPLAS MARTÍN [facility] CONSENT/REFUSAL FOR 2022-01-16 17:18:56 Doctor Unadasha, [facility] DIAGNOSIS AND TREATMENT [facility] NOTICE OF PRIVACY 2021-10-29 05:28:38 Doctor Unassigned, [facility] PRACTICES [facility] CONSENT/REFUSAL FOR 2021-10-29 05:28:06 Doctor Unasselizabet [facility] DIAGNOSIS AND TREATMENT [facility] URINALYSIS 2021-10-29 05:21:[address] [facility] URINE DRUG (IMMUNOASSAY) 2021-10-29 05:21:00 Paula Finley [facility] DRUG Medical [facility] SCREEN W/O REFLEX CT TRAUMA THORAX W 2021-10-29 05:19:00 Paula Finley [facility] CONTRAST Medical Branch CT TRAUMA ABDOMEN PELVIS 2021-10-29 05:19:00 Paula Finley [facility] W CONTRAST Medical Branch CT TRAUMA HEAD WO 2021-10-29 05:12:00 Paula Finley [facility] CONTRAST Medical Branch CT TRAUMA CERVICAL SPINE 2021-10-29 05:12:00 Paula Finley [facility] CONTRAST [place] TRAUMA THORACIC SPINE 2021-10-29 05:12:00 Paula Finley [facility] CONTRAST Medical Branch CT TRAUMA LUMBAR SPINE WO 2021-10-29 05:12:00 [facility] [place] COMP. METABOLIC PANEL 2021-10-29 04:31:00 Paula Finley [facility] ([id number]) Medical Branch ETHANOL 2021-10-29 04:31:[address] [facility] CBC WITH DIFF 2021-10-29 04:31:[address] [facility] PROTHROMBIN TIME / INR 2021-10-29 04:31:00 Paula Finley [facility] ACTIVATED PARTIAL 2021-10-29 04:31:00 Paula Finley [facility] THRMPLAS MARTÍN Medical Branch COVID-19 (ID NOW RAPID 2021-06-12 15:52:00 Meagan Bower [facility] TESTING) Medical Branch LIPASE 2021-06-12 15:51:[address] [facility] COMP. METABOLIC PANEL 2021-06-12 15:51:00 [place] [facility] [place] ([id number] Branch CBC WITH DIFF 2021-06-12 15:51:00 Singer [facility] URINALYSIS 2021-06-12 15:51:00 Singer [facility] CONSENT/REFUSAL FOR 2021-06-12 15:42:53 Doctor Unassigned, [facility] DIAGNOSIS AND TREATMENT [place] [facility] URINE DRUG (IMMUNOASSAY) 2021-04-07 01:00:00 Sylvia Richmond [facility] SCREEN XR CHEST 1 VW 2021-04-07 00:42:11 Basilio [facility] LIPASE 2021-04-07 00:30:00 Basilio [facility] TROPONIN I 2021-04-07 00:30:00 Basilio [facility] BASIC METABOLIC PANEL 2021-04-07 00:30:00 Basilio [facility] (NA, K, CL, CO2, GLUCOSE, Medica l Branch BUN, CREATININE, CA) CBC WITH DIFF 2021-04-07 00:30:00 Basilio [facility] NOTICE OF PRIVACY 2021-04-07 00:14:06 Doctor Unassigned, [facility] PRACTICES [facility] CONSENT/REFUSAL FOR 2021-04-07 00:13:41 Doctor Unadasha, [facility] DIAGNOSIS AND TREATMENT [facility] TROPONIN I 2021-02-27 07:30:00 Singer [facility] XR CHEST 1 VW 2021-02-27 06:42:36 Singer [facility] URINE DRUG (IMMUNOASSAY) 2021-02-27 06:08:00 Meagan Bower [facility] SCREEN URINALYSIS 2021-02-27 06:08:00 Singer [facility] LIPASE 2021-02-27 05:32:00 Singer [facility] TROPONIN I 2021-02-27 05:32:00 Singer [facility] COMP. METABOLIC PANEL 2021-02-27 05:32:00 [id number] CBC WITH DIFF 2021-02-27 05:32:00 Singer [facility] PROTHROMBIN TIME / INR 2021-02-27 05:32:00 Meagna Bower rsity [facility] ACTIVATED PARTIAL 2021-02-27 05:32:00 Singer Meagan [facility] Planned Activity Planned Date Details Comments Source Future Scheduled 2023-06-12 COVID-[address] [facility] 00:48:23 (#1) [code = COVID-19 VACCINE (#1)] Future Scheduled 2023-06-12 [facility]ZA [facility] 00:48:23 [code = INFLUENZA VACCINE] Future Scheduled 2021-09-10 [facility] 21:38:17 (1) [code = COVID-19 VACCINE (1)] Future Scheduled 2021-09-10 [facility] 21:38:17 [code = INFLUENZA VACCINE] Future Scheduled [facility] [code = INFLUENZA VACCINE] Future Scheduled COVID-19 [facility]ACCINE [facility] (1) [code = COVID-19 VACCINE (1)] Encounters Start End Encounter Admission Attending Care Care Encounter Source Date/Time Date/Time Type Type Clinicians Facility Department ID 2023-03-10 2023-03-10 Letter Trevon, [facility] [id number] Univers 00:00:00 00:00:00 (Out) General HEALTH [id number] it y of Cardiology [place]7.2.[place] [id number] [place] [id number] Branch OFFICE BUILDING 2023-03-07 2023-03-07 Emergency X BATSHEVA NVHELGA ERT [id number] Univers 13:15:00 17:18:00 GIOVANNI snider [facility] 2023-03-07 2023-03-07 Emergency Batsheva [facility] [id number] Univers 13:15:00 17:18:00 Giovanni MARTI [id number] ity [place] 4.2.7.2.686 [facility] [phone] [place] [address] Branch 2023-01-09 2023-01-09 [facility] [id number] Univers 11:46:00 14:28:00 GIOVANNI snider [facility] 2023-01-09 2023-01-09 [facility] [id number] Univers 11:46:00 14:28:00 Giovanni Stafford FIGUEROA [id number] ity [place] 4.2.7.2.686 [facility] [id number] [address] 2022-04-08 2022-04-08 Emergency X SINGER [facility] ERT [id number] Univers 09:53:00 12:54:00 MEAGAN sinder [facility] 2022-04-08 2022-04-08 Emergency Singer [facility] [id number] Univers 09:53:00 12:54:00 Meagan MARTI [id number] i ty [place] 4.2.7.2.686 [facility] [id number] [address] 2022-02-17 2022-02-17 Orders Doctor YULIANA [id number] Univers 00:00:00 00:00:00 Only Unassigned, KRISTIN [id number] [facility] 4.2.7.2.686 [place] [id number] [place] [address] Branch 2022-01-16 2022-01-16 Emergency [facility] [id number] Univers 11:22:00 15:26:00 ROXANA snider [facility] 2022-01-16 2022-01-16 [facility] [id number] Univers 11:22:00 15:26:00 Roxana MARTI [id number] ity of [place] 4.2.7.2.686 [facility] [id number] [place] [address] Branch 2021-10-29 2021-10-29 Emergency X Pastora CLARK [facility] ERT [id number] Univers 10:24:00 13:13:00 ity of [facility] 2021-10-29 2021-10-29 Emergency Pastora Clark [facility] [id number] Univers 10:24:00 13:13:00 Pearl PATTERSONSORAYA 350.1.13.10 i ty of [place] 4.2.7.2.686 [facility] [id number] [address] 2021-10-28 2021-10-29 Emergency X FINLEY, [facility] ERT [id number] Univers 22:23:00 00:40:00 PAULA ity [facility] 2021-10-28 2021-10-29 Emergency [facility] [id number] Univers 22:23:00 00:40:00 Paula PATTERSONSORAYA 350.1.13.10 i ty of [place] 4.2.7.2.686 [facility] [id number] [address] 2021-06-12 2021-06-12 Emergency Ibarnelunnan, [facility] 1.2.840.114 [id number] Univers 10:48:00 12:24:00 Esequiel Marti 350.1.13.10 ity of [place] 4.2.7.2.686 [facility] [id number] [address] 2021-06-12 2021-06-12 Emergency X [facility] ERT [id number] Univers 10:45:27 10:45:27 ity [facility] 2021-04-06 2021-04-06 Emergency Ebhim, [facility] 1.2.840.114 [id number] 19:29:00 21:15:00 Sylvia Figueroa 350.1.13.10 [place] 4.2.7.2.686 [place] [id number] 2021-04-06 2021-04-06 Emergency X EBMARY JOM, [facility] ERT [id number] Univers 19:29:00 21:15:00 SYLVIA ity [facility] 2021-04-06 2021-04-06 Emergency Ebhim, [facility] 1.2.840.114 [id number] [facility] 19:29:00 21:15:00 Sylvia Marti 350.1.13.10 i ty of [place] 4.2.7.2.686 [facility] [id number] [address] 2021-02-27 2021-02-27 Emergency Bower, [facility] [id number] 00:18:00 03:30:00 Meagan Marti 350.1.13.[address] [place] [address] [id number] [facility] 2021-02-27 2021-02-27 Emergency Bower, [facility] [id number] [id number] Univers 00:18:00 03:30:00 Meagan Marti 350.1.13.10 i ty of [place] 4.2.7.2.686 [facility] [id number] [address] 2021-02-27 2021-02-27 Emergency X BOWER, [facility] ERT [id number] Univers 00:18:00 00:18:00 MEAGAN snider [facility] Results Test Description Test Time Test Comments Results Result Comments Source THYROID STIMULATING HORMONE 2023-03-07 20:15:49 Test Item Value Reference Range Interpretation Comme nts TSH (test code = 4812882398) 0.41 See_Comment L [Automated message] The system which generated this result transmitted ref erence range: 0.45 - 4.70 mIU /L. The reference range was not u sed to interpret this result as normal/abnormal. Lab Interpretation (test code Abnormal = 19479-3) [id number] 20:08:11 Test Item Value Reference Range Interpretation Comments NT-proBNP (test code = <=125 5832583736) EASTON (test code = EASTON) Biotin has been reported to cause a negative bias, interpret results relative to patient's use of biotin. Lab Interpretation (test Normal code = 84161-8) [facility] [id number] 19:57:28 Test Item Value Reference Range Interpretation Comments TROPONIN I (test code = 0.002 ng/mL <=0.034 7451673585) EASTON (test code = EASTON) Reference (Normal) Range (defined by the 99th percentile reference limit): <= 0.034 ng/mL Note: Cardiac troponin begins to rise 3-4 hours after the onset of ischemia. Repeat in 4-6 hours if the sample was drawn within 3-4 hours of the onset of the symptom and found normal. Diagnosis of myocardial injury is made with acute changes in cTn concentrations with at least one serial sample above the 99th percentile upper reference limit (URL), taken together with the patient's clinical presentation. Biotin has been reported to cause a negative bias, interpret results relative to patient's use of biotin. Lab Interpretation Normal (test code = 33727-3) [facility]. METABOLIC PANEL ([id number])2023-03-07 19:51:44 Test Item Value Reference Range Interpretation Comments NA (test code = 142 mmol/L 135-145 0718041924) K (test code = 4.5 mmol/L 3.5-5.0 0576140653) CL (test code = 109 mmol/L 98-108 H 3909104675) CO2 TOTAL (test code = 24 mmol/L 23-31 3068988086) AGAP (test code = 9 2-16 3952676551) BUN (test code = 10 mg/dL 7-23 3933942295) GLUCOSE (test code = 100 mg/dL 70-110 2010503585) CREATININE (test code = 0.97 mg/dL 0.60-1.25 0773216978) TOTAL BILI (test code = 0.5 mg/dL 0.1-1.4 4969113540) CALCIUM (test code = 9.4 mg/dL 8.6-10.6 6347439273) T PROTEIN (test code = 8.1 g/dL 6.3-8.2 4125096958) ALBUMIN (test code = 5.0 g/dL 3.5-5.0 3721676221) ALK PHOS (test code = 86 U/L 34-122 8024809728) ALTv (test code = 46 U/L 5-50 1742-6) AST(SGOT) (test code = 37 U/L 13-40 0233402855) eGFR (test code = 84.9 mL/min/1.73m2 7237411270) EASTON (test code = EASTON) Association of Glomerular Filtration Rate (GFR) and Staging of Kidney Disease* + --+ --+ ------+| GFR (mL/min/1.73 m2) ?| With Kidney Damage ?| ?Without Kidney Damage+ --------+ --------+ +| ?>90 ?| ?Stage one ?| ? Normal ?+ ---+ ---+ -------+| ?60-89 ?| ?Stage two ?| ? Decreased GFR ? + --+ --+ ------+| ?30-59 ?| ?Stage three ?| ? Stage three ? + --+ --+ ------+| ?15-29 ?| ?Stage four ? | ? Stage four ?+ ---+ ---+ -------+| ?<15 (or dialysis) ? ?| ?Stage five ? | ? Stage five ?+ ---+ ---+ -------+ *Each stage assumes the associated GFR level has been in effect for at least three months. ?Stages 1 to 5, with or without kidney disease, indicate chronic kidney disease. Notes: Determination of stages one and two (with eGFR >59mL/min/1.73 m2) requires estimation of kidney damage for at least three months as defined by structural or functional abnormalities of the kidney, manifested by either:Pathological abnormalities or Markers of kidney damage (including abnormalities in the composition of the blood or urine or abnormalities in imaging tests). Lab Interpretation Abnormal (test code = 38151-3) [facility] 19:46:47 Test Item Value Reference Range Interpretation Comments LIPASE (test code = 8712897229) 170 U/L 0-220 Lab Interpretation (test code = Normal 29617-2) [facility] [id number] 19:27:47 Test Item Value Reference Range Interpretation Comments WBC (test code = 7.17 See_Comment [Automated 2457-2) message] The sy stem which generated this result transmitted reference range : 4.20 - 10.70 10*3/?L. The reference range was not used to interpret this result as normal/abnormal . RBC (test code = 5.12 See_Comment [Automated 844-6) message] The sy stem which generated this result transmitted reference range : 4.26 - 5.52 10*6/?L. The reference range was not used to interpret this result as normal/abnormal . HGB (test code = 16.3 g/dL 12.2-16.4 718-7) HCT (test code = 46.5 % 38.4-49.3 4544-3) MCV (test code = 90.8 fL 81.7-95.6 787-2) MCH (test code = 31.8 pg 26.1-32.7 785-6) MCHC (test code = 35.1 g/dL 31.2-35.0 H 786-4) RDW-SD (test code = 41.8 fL 38.5-51.6 23719-0) RDW-CV (test code = 12.6 % 12.1-15.4 788-0) PLT (test code = 248 See_Comment [Automated 777-3) message] The sy stem which generated this result transmitted reference range : 150 - 328 10*3/ ?L. The reference r windy was not used to interpret this result as normal/abnormal . MPV (test code = 11.0 fL 9.8-13.0 17248-2) NRBC/100 WBC (test 0.0 See_Comment [Automat ed code = 1963565498) message] The system which generated this result transmitted reference range : 0.0 - 10.0 /100 WBCs. The refer ence range was not u sed to interpret th is result as normal/abnormal . NRBC x10^3 (test code See_Comment [Auto mated = 1294348475) message] The s ystem which generated this result transmitted reference range : 10*3/?L. The reference range was not used to interpret this result as normal/abnormal . GRAN MAT (NEUT) % 64.8 % (test code = 770-8) IMM GRAN % (test code 0.70 % = 7639057125) LYMPH % (test code = 23.2 % 736-9) MONO % (test code = 9.5 % 5905-5) EOS % (test code = 1.0 % 713-8) BASO % (test code = 0.8 % 706-2) GRAN MAT x10^3(ANC) 4.65 10*3/uL 1.99-6.95 (test code = 3015192196) IMM GRAN x10^3 (test 0.05 10*3/uL 0.00-0.06 code = 8945902990) LYMPH x10^3 (test code 1.66 10*3/uL 1.09-3.23 = 731-0) MONO x10^3 (test code 0.68 10*3/uL 0.36-1.02 = 742-7) EOS x10^3 (test code = 0.07 10*3/uL 0.06-0.53 711-2) BASO x10^3 (test code 0.06 10*3/uL 0.01-0.09 = 704-7) Lab Interpretation Abnormal (test code = 46983-4) [facility] [id number] 16:38:24 Test Item Value Reference Interpretation Comments Range TROPONIN I (test <0.012 See_Comment [Automated code = 3070071141) message] The system which generated this result transmitted reference range : <=0.034 ng/mL. The reference range was not used to interpret this result as normal/abnormal . EASTON (test code = Reference (Normal) EASTON) Range (defined by the 99th percentile reference limit): <= 0.034 ng/mL Note: Cardiac troponin begins to rise 3-4 hours after the onset of ischemia. Repeat in 4-6 hours if the sample was drawn within 3-4 hours of the onset of the symptom and found normal. Diagnosis of myocardial injury is made with acute changes in cTn concentrations with at least one serial sample above the 99th percentile upper reference limit (URL), taken together with the patient's clinical presentation. Biotin has been reported to cause a negative bias, interpret results relative to patient's use of biotin. Lab Interpretation Normal (test code = 09938-0) [facility] [id number] 16:28:21 Test Item Value Reference Range Interpretation Comments NT-proBNP (test code 77 pg/mL See_Comment [Autom ated = 7507697504) message] The system which generated this result transmitted reference range : <=125. The reference range was not used to interpret this result as normal/abnormal . EASTON (test code = EASTON) Biotin has been reported to cause a negative bias, interpret results relative to patient's use of biotin. Lab Interpretation Normal (test code = 84248-7) [facility] 16:20:01 Test Item Value Reference Range Interpretation Comments MAGNESIUM (test code = 4596672156) 1.8 mg/dL 1.7-2.4 Lab Interpretation (test code = Normal 05469-9) [facility] METABOLIC PANEL (13921)2022-04-08 16:19:41 Test Item Value Reference Range Interpretation Comments NA (test code = 138 mmol/L 135-145 0247020166) K (test code = 4.5 mmol/L 3.5-5.0 4211181014) CL (test code = 103 mmol/L 98-108 9000698287) CO2 TOTAL (test code = 19 mmol/L 23-31 L 1904438269) AGAP (test code = 2-16 0536016167) BUN (test code = 15 mg/dL 7-23 8294815321) GLUCOSE (test code = 114 mg/dL 70-110 H 6075268125) CREATININE (test code = 0.97 mg/dL 0.60-1.25 7397155971) TOTAL BILI (test code = 0.7 mg/dL 0.1-1.5 5271741542) CALCIUM (test code = 9.5 mg/dL 8.6-10.6 5930826220) T PROTEIN (test code = 7.8 g/dL 6.3-8.2 8212661028) ALBUMIN (test code = 4.7 g/dL 3.5-5.0 5800239425) ALK PHOS (test code = 106 U/L 34-122 2769376820) ALTv (test code = 60 U/L 5-50 H 1742-6) AST(SGOT) (test code = 52 U/L 13-40 H 6154594653) eGFR (test code = mL/min/1.73m2 2082776589) EASTON (test code = EASTON) Association of Glomerular Filtration Rate (GFR) and Staging of Kidney Disease* + --+ --+ ------+| GFR (mL/min/1.73 m2) ?| With Kidney Damage ?| ?Without Kidney Damage+ --------+ --------+ +| ?>90 ?| ?Stage one ?| ? Normal ?+ ---+ ---+ -------+| ?60-89 ?| ?Stage two ?| ? Decreased GFR ? + --+ --+ ------+| ?30-59 ?| ?Stage three ?| ? Stage three ? + --+ --+ ------+| ?15-29 ?| ?Stage four ? | ? Stage four ?+ ---+ ---+ -------+| ?<15 (or dialysis) ? ?| ?Stage five ? | ? Stage five ?+ ---+ ---+ -------+ *Each stage assumes the associated GFR level has been in effect for at least three months. ?Stages 1 to 5, with or without kidney disease, indicate chronic kidney disease. Notes: Determination of stages one and two (with eGFR >59mL/min/1.73 m2) requires estimation of kidney damage for at least three months as defined by structural or functional abnormalities of the kidney, manifested by either:Pathological abnormalities or Markers of kidney damage (including abnormalities in the composition of the blood or urine or abnormalities in imaging tests). Lab Interpretation Abnormal (test code = 50020-4) [facility] WITH [id number] 16:08:00 Test Item Value Reference Range Interpretation Comments WBC (test code = See_Comment [Automated 7771-2) message] The sy stem which generated this result transmitted reference range : 4.20 - 10.70 10*3/?L. The reference range was not used to interpret this result as normal/abnormal . RBC (test code = See_Comment [Automated 549-8) message] The sy stem which generated this result transmitted reference range : 4.26 - 5.52 10*6/?L. The reference range was not used to interpret this result as normal/abnormal . HGB (test code = 16.3 g/dL 12.2-16.4 718-7) HCT (test code = 45.4 % 38.4-49.3 4544-3) MCV (test code = 87.8 fL 81.7-95.6 787-2) MCH (test code = 31.5 pg 26.1-32.7 785-6) MCHC (test code = 35.9 g/dL 31.2-35.0 H 786-4) RDW-SD (test code = 37.9 fL 38.5-51.6 L 11265-1) RDW-CV (test code = 11.7 % 12.1-15.4 L 788-0) PLT (test code = See_Comment [Automated 777-3) message] The sy stem which generated this result transmitted reference range : 150 - 328 10*3/ ?L. The reference r windy was not used to interpret this result as normal/abnormal . MPV (test code = 11.1 fL 9.8-13.0 18416-6) NRBC/100 WBC (test See_Comment [Automat ed code = 5650310739) message] The system which generated this result transmitted reference range : 0.0 - 10.0 /100 WBCs. The refer ence range was not u sed to interpret th is result as normal/abnormal . NRBC x10^3 (test code <0.01 See_Comment [Auto mated = 4066952111) message] The s ystem which generated this result transmitted reference range : 10*3/?L. The reference range was not used to interpret this result as normal/abnormal . GRAN MAT (NEUT) % 78.5 % (test code = 770-8) IMM GRAN % (test code 0.70 % = 9150623133) LYMPH % (test code = 13.0 % 736-9) MONO % (test code = 7.2 % 5905-5) EOS % (test code = 0.2 % 713-8) BASO % (test code = 0.4 % 706-2) GRAN MAT x10^3(ANC) 7.17 10*3/uL 1.99-6.95 H (test code = 7846838434) IMM GRAN x10^3 (test 0.06 10*3/uL 0.00-0.06 code = 2643797019) LYMPH x10^3 (test code 1.19 10*3/uL 1.09-3.23 = 731-0) MONO x10^3 (test code 0.66 10*3/uL 0.36-1.02 = 742-7) EOS x10^3 (test code = <0.03 0.06-0.53 L 711-2) BASO x10^3 (test code 0.04 10*3/uL 0.01-0.09 = 704-7) Lab Interpretation Abnormal (test code = 45678-6) [facility] [id number] 18:06:50 Test Item Value Reference Interpretation Comments Range TROPONIN I (test 0.004 ng/mL See_Comment [Automated code = 1722846963) message] The system which generated this result transmitted reference range : <=0.034. The reference range was not used to interpret this result as normal/abnormal . EASTON (test code = Reference (Normal) EASTON) Range (defined by the 99th percentile reference limit): <= 0.034 ng/mL Note: Cardiac troponin begins to rise 3-4 hours after the onset of ischemia. Repeat in 4-6 hours if the sample was drawn within 3-4 hours of the onset of the symptom and found normal. Diagnosis of myocardial injury is made with acute changes in cTn concentrations with at least one serial sample above the 99th percentile upper reference limit (URL), taken together with the patient's clinical presentation. Biotin has been reported to cause a negative bias, interpret results relative to patient's use of biotin. Lab Interpretation Normal (test code = 96966-1) [facility]OLIC PANEL ([id number])2022-01-16 17:56:10 Test Item Value Reference Range Interpretation Comments NA (test code = 140 mmol/L 135-145 8368599629) K (test code = 4.7 mmol/L 3.5-5.0 0541987838) CL (test code = 104 mmol/L 98-108 7256664425) CO2 TOTAL (test code = 22 mmol/L 23-31 L 1968231074) AGAP (test code = 2-16 0710923695) BUN (test code = 10 mg/dL 7-23 3713230092) GLUCOSE (test code = 99 mg/dL 70-110 1838820337) CREATININE (test code = 1.02 mg/dL 0.60-1.25 8946265549) TOTAL BILI (test code = 0.9 mg/dL 0.1-1.6 0111941580) CALCIUM (test code = 9.9 mg/dL 8.6-10.6 7629081769) T PROTEIN (test code = 9.1 g/dL 6.3-8.2 H 3297424241) ALBUMIN (test code = 5.4 g/dL 3.5-5.0 H 2907094001) ALK PHOS (test code = 92 U/L 34-122 7763384453) ALTv (test code = 51 U/L 5-50 H 2-6) AST(SGOT) (test code = 48 U/L 13-40 H 4841940845) eGFR (test code = mL/min/1.73m2 6746316529) EASTON (test code = EASTON) Association of Glomerular Filtration Rate (GFR) and Staging of Kidney Disease* + --+ --+ ------+| GFR (mL/min/1.73 m2) ?| With Kidney Damage ?| ?Without Kidney Damage+ --------+ --------+ +| ?>90 ?| ?Stage one ?| ? Normal ?+ ---+ ---+ -------+| ?60-89 ?| ?Stage two ?| ? Decreased GFR ? + --+ --+ ------+| ?30-59 ?| ?Stage three ?| ? Stage three ? + --+ --+ ------+| ?15-29 ?| ?Stage four ? | ? Stage four ?+ ---+ ---+ -------+| ?<15 (or dialysis) ? ?| ?Stage five ? | ? Stage five ?+ ---+ ---+ -------+ *Each stage assumes the associated GFR level has been in effect for at least three months. ?Stages 1 to 5, with or without kidney disease, indicate chronic kidney disease. Notes: Determination of stages one and two (with eGFR >59mL/min/1.73 m2) requires estimation of kidney damage for at least three months as defined by structural or functional abnormalities of the kidney, manifested by either:Pathological abnormalities or Markers of kidney damage (including abnormalities in the composition of the blood or urine or abnormalities in imaging tests). Lab Interpretation Abnormal (test code = 03253-6) [facility], [id number] 17:55:49 Test Item Value Reference Range Interpretation Comments LIPASE (test code = 1535808929) 143 U/L 0-220 Lab Interpretation (test code = Normal 18127-2) [facility] 17:53:51 Test Item Value Reference Range Interpretation Comments APTT Patient (test See_Comment [Automat ed code = 3173-2) message] The system which generated this result transmitted reference range : 23 - 38 Seconds . The reference range was not used to interpr et this result as normal/abnormal . EASTON (test code = EASTON) The [facility] patient population mean normal value for aPTT is 30 seconds. Lab Interpretation Normal (test code = 37063-9) [facility] HospitalPROTHROM[facility] / [id number] 17:51:49 Test Item Value Reference Range Interpretation Comments PROTIME PATIENT (test See_Comment [Auto mated message] code = 5964-2) The system wh ich generated this result transmitted ref erence range: 12.0 - 1 4.7 Seconds. The re ference range was not u sed to interpret this result as normal/abnor mal. INR (test code = 6301-6) Nor mal INR <1.1; Warfarin Therap eutic range 2.0 to 3. 0 or 2.5 to 3.5, dep ending upon the indica tions. Lab Interpretation (test Normal code = 93965-9) [facility] WITH [id number] 17:44:47 Test Item Value Reference Range Interpretation Comments WBC (test code = See_Comment [Automated 9990-2) message] The sy stem which generated this result transmitted reference range : 4.20 - 10.70 10*3/?L. The reference range was not used to interpret this result as normal/abnormal . RBC (test code = See_Comment [Automated 049-8) message] The sy stem which generated this result transmitted reference range : 4.26 - 5.52 10*6/?L. The reference range was not used to interpret this result as normal/abnormal . HGB (test code = 17.0 g/dL 12.2-16.4 H 718-7) HCT (test code = 48.9 % 38.4-49.3 4544-3) MCV (test code = 90.2 fL 81.7-95.6 787-2) MCH (test code = 31.4 pg 26.1-32.7 785-6) MCHC (test code = 34.8 g/dL 31.2-35.0 786-4) RDW-SD (test code = 41.0 fL 38.5-51.6 98090-3) RDW-CV (test code = 12.5 % 12.1-15.4 788-0) PLT (test code = See_Comment [Automated 777-3) message] The sy stem which generated this result transmitted reference range : 150 - 328 10*3/ ?L. The reference r windy was not used to interpret this result as normal/abnormal . MPV (test code = 10.5 fL 9.8-13.0 73769-0) NRBC/100 WBC (test See_Comment [Automat ed code = 0254785434) message] The system which generated this result transmitted reference range : 0.0 - 10.0 /100 WBCs. The refer ence range was not u sed to interpret th is result as normal/abnormal . NRBC x10^3 (test code <0.01 See_Comment [Auto mated = 6429775344) message] The s ystem which generated this result transmitted reference range : 10*3/?L. The reference range was not used to interpret this result as normal/abnormal . GRAN MAT (NEUT) % 61.7 % (test code = 770-8) IMM GRAN % (test code 0.70 % = 4512629777) LYMPH % (test code = 29.3 % 736-9) MONO % (test code = 6.9 % 5905-5) EOS % (test code = 0.7 % 713-8) BASO % (test code = 0.7 % 706-2) GRAN MAT x10^3(ANC) 5.08 10*3/uL 1.99-6.95 (test code = 4692922674) IMM GRAN x10^3 (test 0.06 10*3/uL 0.00-0.06 code = 0684210376) LYMPH x10^3 (test code 2.42 10*3/uL 1.09-3.23 = 731-0) MONO x10^3 (test code 0.57 10*3/uL 0.36-1.02 = 742-7) EOS x10^3 (test code = 0.06 10*3/uL 0.06-0.53 711-2) BASO x10^3 (test code 0.06 10*3/uL 0.01-0.09 = 704-7) Lab Interpretation Abnormal (test code = 33993-4) [facility]. METABOLIC PANEL ([id number])2021-10-29 05:48:09 Test Item Value Reference Range Interpretation Comments NA (test code = 142 mmol/L 135-145 7611529691) K (test code = 4.2 mmol/L 3.5-5.0 9749872507) CL (test code = 105 mmol/L 98-108 3110791638) CO2 TOTAL (test code = 19 mmol/L 23-31 L 2138670336) AGAP (test code = 2-16 H 4182760037) BUN (test code = 10 mg/dL 7-23 0442805407) GLUCOSE (test code = 117 mg/dL 70-110 H 7834085187) CREATININE (test code = 0.97 mg/dL 0.60-1.25 1122594588) TOTAL BILI (test code = 0.5 mg/dL 0.1-1.4 6454587584) CALCIUM (test code = 9.7 mg/dL 8.6-10.6 7125190867) T PROTEIN (test code = 8.7 g/dL 6.3-8.2 H 6966857043) ALBUMIN (test code = 5.1 g/dL 3.5-5.0 H 3345964274) ALK PHOS (test code = 89 U/L 34-122 2852979482) ALTv (test code = 79 U/L 5-50 H 1742-6) AST(SGOT) (test code = 69 U/L 13-40 H 9456156832) eGFR (test code = mL/min/1.73m2 6557954481) EASTON (test code = EASTON) Association of Glomerular Filtration Rate (GFR) and Staging of Kidney Disease* + --+ --+ ------+| GFR (mL/min/1.73 m2) ?| With Kidney Damage ?| ?Without Kidney Damage+ --------+ --------+ +| ?>90 ?| ?Stage one ?| ? Normal ?+ ---+ ---+ -------+| ?60-89 ?| ?Stage two ?| ? Decreased GFR ? + --+ --+ ------+| ?30-59 ?| ?Stage three ?| ? Stage three ? + --+ --+ ------+| ?15-29 ?| ?Stage four ? | ? Stage four ?+ ---+ ---+ -------+| ?<15 (or dialysis) ? ?| ?Stage five ? | ? Stage five ?+ ---+ ---+ -------+ *Each stage assumes the associated GFR level has been in effect for at least three months. ?Stages 1 to 5, with or without kidney disease, indicate chronic kidney disease. Notes: Determination of stages one and two (with eGFR >59mL/min/1.73 m2) requires estimation of kidney damage for at least three months as defined by structural or functional abnormalities of the kidney, manifested by either:Pathological abnormalities or Markers of kidney damage (including abnormalities in the composition of the blood or urine or abnormalities in imaging tests). Lab Interpretation Abnormal (test code = 11348-2) [facility] HospitalETHANOL2021-[facility] 04:52:43 Test Item Value Reference Range Interpretation Comments ALCOHOL (test code = 290 mg/dL 1804075180) EASTON (test code = EASTON) <10 [id number] Toxic>100 Depression of CHOCOLATE TEMPERER>[address] [facility] HospitalACTIV[facility]IAL THRMPLAS [id number] 04:51:01 Test Item Value Reference Range Interpretation Comments APTT Patient (test See_Comment [Automat ed code = 3173-2) message] The system which generated this result transmitted reference range : 23 - 38 Seconds . The reference range was not used to interpr et this result as normal/abnormal . EASTON (test code = EASTON) The [facility] patient population mean normal value for aPTT is 30 seconds. Lab Interpretation Normal (test code = 03701-4) [facility] HospitalPROTHROMBIN TIME / [id number] 04:49:01 Test Item Value Reference Range Interpretation Comments PROTIME PATIENT (test See_Comment [Auto mated message] code = 5964-2) The system wh ich generated this result transmitted ref erence range: 12.0 - 1 4.7 Seconds. The re ference range was not u sed to interpret this result as normal/abnor mal. INR (test code = 6301-6) Nor mal INR <1.1; Warfarin Therap eutic range 2.0 to 3. 0 or 2.5 to 3.5, dep ending upon the indica tions. Lab Interpretation (test Normal code = 29850-9) [facility] WITH [id number] 04:42:44 Test Item Value Reference Range Interpretation Comments WBC (test code = See_Comment [Automated 8790-2) message] The sy stem which generated this result transmitted reference range : 4.20 - 10.70 10*3/?L. The reference range was not used to interpret this result as normal/abnormal . RBC (test code = See_Comment [Automated 789-8) message] The sy stem which generated this result transmitted reference range : 4.26 - 5.52 10*6/?L. The reference range was not used to interpret this result as normal/abnormal . HGB (test code = 17.0 g/dL 12.2-16.4 H 718-7) HCT (test code = 48.8 % 38.4-49.3 4544-3) MCV (test code = 91.7 fL 81.7-95.6 787-2) MCH (test code = 32.0 pg 26.1-32.7 785-6) MCHC (test code = 34.8 g/dL 31.2-35.0 786-4) RDW-SD (test code = 39.7 fL 38.5-51.6 94073-8) RDW-CV (test code = 11.9 % 12.1-15.4 L 788-0) PLT (test code = See_Comment [Automated 777-3) message] The sy stem which generated this result transmitted reference range : 150 - 328 10*3/ ?L. The reference r windy was not used to interpret this result as normal/abnormal . MPV (test code = 11.0 fL 9.8-13.0 85885-6) NRBC/100 WBC (test See_Comment [Automat ed code = 6338895031) message] The system which generated this result transmitted reference range : 0.0 - 10.0 /100 WBCs. The refer ence range was not u sed to interpret th is result as normal/abnormal . NRBC x10^3 (test code <0.01 See_Comment [Auto mated = 7692536078) message] The s ystem which generated this result transmitted reference range : 10*3/?L. The reference range was not used to interpret this result as normal/abnormal . GRAN MAT (NEUT) % 67.1 % (test code = 770-8) IMM GRAN % (test code 1.10 % = 5941881486) LYMPH % (test code = 23.2 % 736-9) MONO % (test code = 7.9 % 5905-5) EOS % (test code = 0.1 % 713-8) BASO % (test code = 0.6 % 706-2) GRAN MAT x10^3(ANC) 6.30 10*3/uL 1.99-6.95 (test code = 1684053642) IMM GRAN x10^3 (test 0.10 10*3/uL 0.00-0.06 H code = 0082620400) LYMPH x10^3 (test code 2.18 10*3/uL 1.09-3.23 = 731-0) MONO x10^3 (test code 0.74 10*3/uL 0.36-1.02 = 742-7) EOS x10^3 (test code = <0.03 0.06-0.53 L 711-2) BASO x10^3 (test code 0.06 10*3/uL 0.01-0.09 = 704-7) Lab Interpretation Abnormal (test code = 86474-3) [facility] HospitalUrinalysis2021-08-05 16:53:11 Test Item Value Reference Range Interpretation Comments APPEARANCE (test code = Hazy Clear A 1006655524) COLOR (test code = Rosmery Yellow A 6828882895) PH (test code = 4.8-8.0 5038314123) SP GRAVITY (test code = 1.003-1.030 H 9359940687) GLU U QUAL (test code = Normal Normal 3391595414) BLOOD (test code = Negative Negative 0074866331) KETONES (test code = 20 mg/dL Negative A 5277527691) PROTEIN (test code = 30 mg/dL Negative A 2887-8) UROBILIN (test code = 2.0 mg/dL Normal A 3835931105) BILIRUBIN (test code = Negative Negative 3160078216) NITRITE (test code = Negative Negative 9419577741) LEUK MELANIE (test code = 75/uL Negative A 1620171440) RBC/HPF (test code = See_Comment [Autom ated message] 1127805683) The system [employer] generated this result transmit maico reference range : 0 - 3 HPF. The refe rence range was not u sed to interpret th is result as normal/abnormal . WBC/HPF (test code = See_Comment H [Autom ated message] 9614747066) The system [employer] generated this result transmit maico reference range : 0 - 5 HPF. The refe rence range was not u sed to interpret th is result as normal/abnormal . BACTERIA (test code = Few Negative A 6844057827) MUCOUS (test code = Slight Negative LPF A 7820664090) SQ EPITH (test code = <1 HPF 4112170697) HYAL CAST (test code = See_Comment [Aut omated message] 6889374884) The system [employer] generated this result transmit maico reference range : <=2 LPF. The refere nce range was not u sed to interpret th is result as normal/abnormal . Lab Interpretation (test Abnormal code = 20059-3) [facility] HospitalComplete Metabolic [id number] 16:23:05 Test Item Value Reference Range Interpretation Comments NA (test code = 136 mmol/L 135-145 8941759728) K (test code = 3.8 mmol/L 3.5-5.0 4400423832) CL (test code = 100 mmol/L 98-108 6430868365) CO2 TOTAL (test code = 21 mmol/L 23-31 L 7418941443) AGAP (test code = 2-16 8950519696) BUN (test code = 15 mg/dL 7-23 7440952690) GLUCOSE (test code = 130 mg/dL 70-110 H 2991050738) CREATININE (test code = 1.45 mg/dL 0.60-1.25 H 5799620855) TOTAL BILI (test code = 0.5 mg/dL 0.1-1.3 2922212010) CALCIUM (test code = 9.7 mg/dL 8.6-10.6 0904728010) T PROTEIN (test code = 9.6 g/dL 6.3-8.2 H 2670594283) ALBUMIN (test code = 5.4 g/dL 3.5-5.0 H 0095899294) ALK PHOS (test code = 105 U/L 34-122 2947368969) ALTv (test code = 92 U/L 5-50 H 1742-6) AST(SGOT) (test code = 104 U/L 13-40 H 0464444485) eGFR (test code = mL/min/1.73m2 6552858190) EASTON (test code = EASTON) Association of Glomerular Filtration Rate (GFR) and Staging of Kidney Disease* + --+ --+ ------+| GFR (mL/min/1.73 m2) ?| With Kidney Damage ?| ?Without Kidney Damage+ --------+ --------+ +| ?>90 ?| ?Stage one ?| ? Normal ?+ ---+ ---+ -------+| ?60-89 ?| ?Stage two ?| ? Decreased GFR ? + --+ --+ ------+| ?30-59 ?| ?Stage three ?| ? Stage three ? + --+ --+ ------+| ?15-29 ?| ?Stage four ? | ? Stage four ?+ ---+ ---+ -------+| ?<15 (or dialysis) ? ?| ?Stage five ? | ? Stage five ?+ ---+ ---+ -------+ *Each stage assumes the associated GFR level has been in effect for at least three months. ?Stages 1 to 5, with or without kidney disease, indicate chronic kidney disease. Notes: Determination of stages one and two (with eGFR >59mL/min/1.73 m2) requires estimation of kidney damage for at least three months as defined by structural or functional abnormalities of the kidney, manifested by either:Pathological abnormalities or Markers of kidney damage (including abnormalities in the composition of the blood or urine or abnormalities in imaging tests). Lab Interpretation Abnormal (test code = 68721-1) [facility] HospitalLip[facility], [id number] 16:22:24 Test Item Value Reference Range Interpretation Comments LIPASE (test code = 6549428897) 149 U/L 0-220 Lab Interpretation (test code = Normal 20167-2) [facility] with [id number] 16:13:24 Test Item Value Reference Range Interpretation Comments WBC (test code = See_Comment [Automated 6690-2) message] The sy stem which generated this result transmitted reference range : 4.20 - 10.70 10*3/?L. The reference range was not used to interpret this result as normal/abnormal . RBC (test code = See_Comment [Automated 789-8) message] The sy stem which generated this result transmitted reference range : 4.26 - 5.52 10*6/?L. The reference range was not used to interpret this result as normal/abnormal . HGB (test code = 16.9 g/dL 12.2-16.4 H 718-7) HCT (test code = 48.5 % 38.4-49.3 4544-3) MCV (test code = 89.3 fL 81.7-95.6 787-2) MCH (test code = 31.1 pg 26.1-32.7 785-6) MCHC (test code = 34.8 g/dL 31.2-35.0 786-4) RDW-SD (test code = 39.8 fL 38.5-51.6 90536-3) RDW-CV (test code = 12.1 % 12.1-15.4 788-0) PLT (test code = See_Comment [Automated 777-3) message] The sy stem which generated this result transmitted reference range : 150 - 328 10*3/ ?L. The reference r windy was not used to interpret this result as normal/abnormal . MPV (test code = 10.6 fL 9.8-13.0 80390-8) NRBC/100 WBC (test See_Comment [Automat ed code = 0614166204) message] The system which generated this result transmitted reference range : 0.0 - 10.0 /100 WBCs. The refer ence range was not u sed to interpret th is result as normal/abnormal . NRBC x10^3 (test code <0.01 See_Comment [Auto mated = 4897461690) message] The s yste which generated this result transmitted reference range : 10*3/?L. The reference range was not used to interpret this result as normal/abnormal . GRAN MAT (NEUT) % 75.6 % (test code = 770-8) IMM GRAN % (test code 0.60 % = 7480615177) LYMPH % (test code = 10.1 % 736-9) MONO % (test code = 13.0 % 5905-5) EOS % (test code = 0.1 % 713-8) BASO % (test code = 0.6 % 706-2) GRAN MAT x10^3(ANC) 7.53 10*3/uL 1.99-6.95 H (test code = 6906895124) IMM GRAN x10^3 (test 0.06 10*3/uL 0.00-0.06 code = 2870837081) LYMPH x10^3 (test code 1.01 10*3/uL 1.09-3.23 L = 731-0) MONO x10^3 (test code 1.29 10*3/uL 0.36-1.02 H = 742-7) EOS x10^3 (test code = <0.03 0.06-0.53 L 711-2) BASO x10^3 (test code 0.06 10*3/uL 0.01-0.09 = 704-7) Lab Interpretation Abnormal (test code = 60225-3) [facility]COVID[facility] (ID NOW RAPID TESTING)2021-06-12 16:12:48 Test Item Value Reference Range Interpretation Comments SARS-CoV-2 Rapid ID NOW Positive Not Detected A (test code = 77796-0) EASTON (test code = EASTON) ID NOW COVID-19 Assay is an isothermal nucleic acid amplification test intended for the qualitative detection of nucleic acid from SARS-CoV-2 viral RNA in nasopharyngeal (BROOM MAN) specimens. It is used under Emergency Use Authorization (EUA) by FDA. The limit of detection (LOD) of the assay is 125 Genome Equivalents/mL. A positive result is indicative of the presence of SARS-CoV-2 RNA. ?Clinical correlation with patient history and other diagnostic information is necessary to determine patient infection status. A negative (Not Detected) result does not preclude SARS-CoV-2 infection. In patients with clinical symptoms and other tests that are consistent with SARS-CoV-2 infection, negative results should be treated as presumptive negative and a new specimen should be tested with alternative PCR molecular test. Invalid: Please collect a new specimen for repeat patient testing if clinically indicated. Lab Interpretation Abnormal (test code = 82647-1) [facility] [id number] 01:47:33 Test Item Value Reference Range Interpretation Comments LIPASE (test code = 2587988451) 177 U/L 0-220 Lab Interpretation (test code = Normal 30684-7) [facility]DR[facility] PANEL 2 [id number] 01:44:46 Test Item Value Reference Range Interpretation Comments AMPHET (test code = Negative Negative 8022180874) YOLANDA U (test code = Negative Negative 9535352782) BENZO U (test code = Negative Negative 1934146514) Cocaine Metabolite (test Negative Negative code = 4225814723) METHADONE (test code = Negative Negative 3090357353) OPIATES (test code = Negative Negative 0361561878) PCP (test code = Negative Negative 9336802999) THC (test code = Negative Negative 4156730148) EASTON (test code = EASTON) Urine Drug Cutoff Ranges Cocaine: ? 150 ng/mLBenzodiazepines: ? ? 200 ng/mLMethadone: ? 300 ng/mLAmphetamine: ? 1,000 ng/mLOpiates: ? 300 ng/mLCannabinoids: ?50 ng/mLPhencyclidine: ? ? ? 25 ng/mLBarbiturates: ?200 ng/mL The results are to be used only for medical (i.e., treatment) purposes. Unconfirmed screening results must not be used for non-medical purposes (e.g., employment testing, legal testing). Lab Interpretation (test Normal code = 39461-9) [facility] HospitalTroponin [id number] 01:36:13 Test Item Value Reference Range Interpretation Comments TROPONIN I (test 0.000 ng/mL See_Comment [Automated code = 4316813360) message] The system which generated this result transmitted reference range : <=0.034. The reference range was not used to interpret this result as normal/abnormal . EASTON (test code = Equal or Less than EASTON) 0.034 ng/ml---Normal ?Note: Cardiac troponin begins to rise 3-4 hours after the onset of ischemia. Repeat in 4-6 hours if the sample was drawn within 3-4 hours of the onset of the symptom and found normal. Between 0.035 and 0.120 ng/mL--- Borderline. Questionable myocardial injury or necrosis ? ?Note: Serial measurement may be necessary to confirm or exclude the diagnosis of myocardial injury or necrosis; Clinical correlation (symptoms, EKGs, imaging studies, and others) required; Repeat in 4-6 hours if clinically indicated. ? Equal or Higher than 0.121 ng/mL---Abnormal. Myocardial Injury or Necrosis Likely ? Biotin has been reported to cause a negative bias, interpret results relative to patient's use of biotin. ? Lab Interpretation Normal (test code = 93220-6) [facility] Metabolic Panel (NA, K, CL, CO2, GLUCOSE, BUN, CREATININE, CA)2021-04-07 01:24:15 Test Item Value Reference Range Interpretation Comments NA (test code = 141 mmol/L 135-145 7241606975) K (test code = 4.0 mmol/L 3.5-5.0 9169997082) CL (test code = 104 mmol/L 98-108 4031534677) CO2 TOTAL (test code 24 mmol/L = 8385003765) AGAP (test code = 2-16 3846508249) BUN (test code = 10 mg/dL 7-23 3475593323) GLUCOSE (test code = 104 mg/dL 70-110 2514659235) CREATININE (test code 1.00 mg/dL 0.60-1.25 = 3221664664) CALCIUM (test code = 9.8 mg/dL 8.6-10.6 0638649455) eGFR (test code = mL/min/1.73m2 3309980722) EASTON (test code = EASTON) Association of Glomerular Filtration Rate (GFR) and Staging of Kidney Disease* + + +- +| GFR (mL/min/1.73 m2) ?| With Kidney Damage ?| ?Without Kidney Damage+ ------+ ----+ ------+| ?>90 ?| ?Stage one ?| ? Normal ?+ -+ + -+| ?60-89 ?| ?Stage two ?| ? Decreased GFR ? + + +- +| ?30-59 ?| ?Stage three ?| ? Stage three ? + + +- +| ?15-29 ?| ?Stage four ? | ? Stage four ?+ -+ + -+| ?<15 (or dialysis) ? ?| ?Stage five ? | ? Stage five ?+ -+ + -+ *Each stage assumes the associated GFR level has been in effect for at least three months. ?Stages 1 to 5, with or without kidney disease, indicate chronic kidney disease. Notes: Determination of stages one and two (with eGFR >59mL/min/1.73 m2) requires estimation of kidney damage for at least three months as defined by structural or functional abnormalities of the kidney, manifested by either:Pathological abnormalities or Markers of kidney damage (including abnormalities in the composition of the blood or urine or abnormalities in imaging tests). [facility] with [id number] 01:01:11 Test Item Value Reference Range Interpretation Comments WBC (test code = See_Comment [Automated 3490-2) message] The sy stem which generated this result transmitted reference range : 4.20 - 10.70 10*3/?L. The reference range was not used to interpret this result as normal/abnormal . RBC (test code = See_Comment [Automated 283-8) message] The sy stem which generated this result transmitted reference range : 4.26 - 5.52 10*6/?L. The reference range was not used to interpret this result as normal/abnormal . HGB (test code = 16.2 g/dL 12.2-16.4 718-7) HCT (test code = 46.9 % 38.4-49.3 4544-3) MCV (test code = 90.7 fL 81.7-95.6 787-2) MCH (test code = 31.3 pg 26.1-32.7 785-6) MCHC (test code = 34.5 g/dL 31.2-35.0 786-4) RDW-SD (test code = 41.1 fL 38.5-51.6 96248-3) RDW-CV (test code = 12.3 % 12.1-15.4 788-0) PLT (test code = See_Comment [Automated 777-3) message] The sy stem which generated this result transmitted reference range : 150 - 328 10*3/ ?L. The reference r windy was not used to interpret this result as normal/abnormal . MPV (test code = 10.6 fL 9.8-13.0 23668-1) NRBC/100 WBC (test See_Comment [Automat ed code = 0313845929) message] The system which generated this result transmitted reference range : 0.0 - 10.0 /100 WBCs. The refer ence range was not u sed to interpret th is result as normal/abnormal . NRBC x10^3 (test code <0.01 See_Comment [Auto mated = 0442918203) message] The s ystem which generated this result transmitted reference range : 10*3/?L. The reference range was not used to interpret this result as normal/abnormal . GRAN MAT (NEUT) % 65.6 % (test code = 770-8) IMM GRAN % (test code 0.80 % = 2486507838) LYMPH % (test code = 22.5 % 736-9) MONO % (test code = 9.2 % 5905-5) EOS % (test code = 1.3 % 713-8) BASO % (test code = 0.6 % 706-2) GRAN MAT x10^3(ANC) 5.63 10*3/uL 1.99-6.95 (test code = 7198130894) IMM GRAN x10^3 (test 0.07 10*3/uL 0.00-0.06 H code = 5470520028) LYMPH x10^3 (test code 1.93 10*3/uL 1.09-3.23 = 731-0) MONO x10^3 (test code 0.79 10*3/uL 0.36-1.02 = 742-7) EOS x10^3 (test code = 0.11 10*3/uL 0.06-0.53 711-2) BASO x10^3 (test code 0.05 10*3/uL 0.01-0.09 = 704-7) Lab Interpretation Abnormal (test code = 74375-1) [id number]00 Test Item Value Reference Range Interpretation Comments TROPONIN I (test 0.003 ng/mL See_Comment [Automated code = 6033416188) message] The system which generated this result transmitted reference range : <=0.034. The reference range was not used to interpret this result as normal/abnormal . EASTON (test code = Equal or Less than EASTON) 0.034 ng/ml---Normal ?Note: Cardiac troponin begins to rise 3-4 hours after the onset of ischemia. Repeat in 4-6 hours if the sample was drawn within 3-4 hours of the onset of the symptom and found normal. Between 0.035 and 0.120 ng/mL--- Borderline. Questionable myocardial injury or necrosis ? ?Note: Serial measurement may be necessary to confirm or exclude the diagnosis of myocardial injury or necrosis; Clinical correlation (symptoms, EKGs, imaging studies, and others) required; Repeat in 4-6 hours if clinically indicated. ? Equal or Higher than 0.121 ng/mL---Abnormal. Myocardial Injury or Necrosis Likely ? Biotin has been reported to cause a negative bias, interpret results relative to patient's use of biotin. ? Lab Interpretation Normal (test code = 74568-2) [facility] - COMPREHENSIVE DRUG [id number] 06:40:29 Test Item Value Reference Range Interpretation Comments AMPHET (test code = Negative Negative 8511707510) YOLANDA U (test code = Negative Negative 4104454628) BENZO U (test code = Negative Negative 2454054694) Cocaine Metabolite (test Negative Negative code = 4042166420) METHADONE (test code = Negative Negative 3287119761) OPIATES (test code = Negative Negative 1327788225) PCP (test code = Negative Negative 9117258109) THC (test code = Negative Negative 8751930033) EASTON (test code = EASTON) Urine Drug Cutoff Ranges Cocaine: ? 150 ng/mLBenzodiazepines: ? ? 200 ng/mLMethadone: ? 300 ng/mLAmphetamine: ? 1,000 ng/mLOpiates: ? 300 ng/mLCannabinoids: ?50 ng/mLPhencyclidine: ? ? ? 25 ng/mLBarbiturates: ?200 ng/mL The results are to be used only for medical (i.e., treatment) purposes. Unconfirmed screening results must not be used for non-medical purposes (e.g., employment testing, legal testing). Lab Interpretation (test Normal code = 90130-1) [facility] 06:33:58 Test Item Value Reference Range Interpretation Comments APPEARANCE (test code = Clear Clear 9776376328) COLOR (test code = Yellow Yellow 1923624325) PH (test code = 4.8-8.0 0070770077) SP GRAVITY (test code = 1.003-1.030 4401144487) GLU U QUAL (test code = Negative Negative 8305768732) BLOOD (test code = Negative Negative 9043501365) KETONES (test code = 15 mg/dL Negative A 9890723371) PROTEIN (test code = Negative Negative 2887-8) UROBILIN (test code = 0.2 mg/dL See_Comment [Auto mated message] 0579267527) The system [employer] generated this result transmit maico reference range : 0-1.0 mg/dL. Th e reference range was not used to interpret this result as normal/abnormal . BILIRUBIN (test code = Negative Negative 0107763778) NITRITE (test code = Negative Negative 3961576723) LEUK MELANIE (test code = Negative Negative 1982464453) RBC/HPF (test code = See_Comment [Autom ated message] 6989783080) The system [employer] generated this result transmit maico reference range : 0 - 3 HPF. The refe rence range was not u sed to interpret th is result as normal/abnormal . WBC/HPF (test code = See_Comment [Autom ated message] 8895836299) The system [employer] generated this result transmit maico reference range : 0 - 5 HPF. The refe rence range was not u sed to interpret th is result as normal/abnormal . BACTERIA (test code = Negative Negative 0358937947) Lab Interpretation (test Abnormal code = 85394-9) [facility] [id number] 06:06:13 Test Item Value Reference Range Interpretation Comments TROPONIN I (test 0.002 ng/mL See_Comment [Automated code = 7120642409) message] The system which generated this result transmitted reference range : <=0.034. The reference range was not used to interpret this result as normal/abnormal . EASTON (test code = Equal or Less than EASTON) 0.034 ng/ml---Normal ?Note: Cardiac troponin begins to rise 3-4 hours after the onset of ischemia. Repeat in 4-6 hours if the sample was drawn within 3-4 hours of the onset of the symptom and found normal. Between 0.035 and 0.120 ng/mL--- Borderline. Questionable myocardial injury or necrosis ? ?Note: Serial measurement may be necessary to confirm or exclude the diagnosis of myocardial injury or necrosis; Clinical correlation (symptoms, EKGs, imaging studies, and others) required; Repeat in 4-6 hours if clinically indicated. ? Equal or Higher than 0.121 ng/mL---Abnormal. Myocardial Injury or Necrosis Likely ? Biotin has been reported to cause a negative bias, interpret results relative to patient's use of biotin. ? Lab Interpretation Normal (test code = 32420-7) [facility] 05:56:29 Test Item Value Reference Range Interpretation Comments APTT Patient (test See_Comment [Automat ed code = 3173-2) message] The system which generated this result transmitted reference range : 23 - 38 Seconds . The reference range was not used to interpr et this result as normal/abnormal . EASTON (test code = EASTON) The [facility] patient population mean normal value for aPTT is 30 seconds. Lab Interpretation Normal (test code = 95555-5) [facility]. METABOLIC PANEL (67357)2021-02-27 05:54:49 Test Item Value Reference Range Interpretation Comments NA (test code = 141 mmol/L 135-145 4023181140) K (test code = 3.7 mmol/L 3.5-5.0 8146038849) CL (test code = 103 mmol/L 98-108 1178188466) CO2 TOTAL (test code = 23 mmol/L 23-31 7716375980) AGAP (test code = 2-16 1562233005) BUN (test code = 14 mg/dL 7-23 3235168317) GLUCOSE (test code = 97 mg/dL 70-110 0721540495) CREATININE (test code = 0.96 mg/dL 0.60-1.25 8849174506) TOTAL BILI (test code = 0.5 mg/dL 0.1-1.7 8219971473) CALCIUM (test code = 9.0 mg/dL 8.6-10.6 8416082284) T PROTEIN (test code = 8.4 g/dL 6.3-8.2 H 1155948918) ALBUMIN (test code = 5.0 g/dL 3.5-5.0 0902599500) ALK PHOS (test code = 105 U/L 34-122 4135780582) ALTv (test code = 58 U/L 5-50 H 1742-6) AST(SGOT) (test code = 62 U/L 13-40 H 7297291216) eGFR (test code = mL/min/1.73m2 0341465254) EASTON (test code = EASTON) Association of Glomerular Filtration Rate (GFR) and Staging of Kidney Disease* + --+ --+ ------+| GFR (mL/min/1.73 m2) ?| With Kidney Damage ?| ?Without Kidney Damage+ --------+ --------+ +| ?>90 ?| ?Stage one ?| ? Normal ?+ ---+ ---+ -------+| ?60-89 ?| ?Stage two ?| ? Decreased GFR ? + --+ --+ ------+| ?30-59 ?| ?Stage three ?| ? Stage three ? + --+ --+ ------+| ?15-29 ?| ?Stage four ? | ? Stage four ?+ ---+ ---+ -------+| ?<15 (or dialysis) ? ?| ?Stage five ? | ? Stage five ?+ ---+ ---+ -------+ *Each stage assumes the associated GFR level has been in effect for at least three months. ?Stages 1 to 5, with or without kidney disease, indicate chronic kidney disease. Notes: Determination of stages one and two (with eGFR >59mL/min/1.73 m2) requires estimation of kidney damage for at least three months as defined by structural or functional abnormalities of the kidney, manifested by either:Pathological abnormalities or Markers of kidney damage (including abnormalities in the composition of the blood or urine or abnormalities in imaging tests). Lab Interpretation Abnormal (test code = 12938-0) [facility] / [id number] 05:54:28 Test Item Value Reference Range Interpretation Comments PROTIME PATIENT (test See_Comment [Auto mated message] code = 5964-2) The system [employer] generated this result transmitted ref erence range: 12.0 - 1 4.7 Seconds. The re ference range was not u sed to interpret this result as normal/abnor mal. INR (test code = 6301-6) Nor mal INR <1.1; Warfarin Therap eutic range 2.0 to 3. 0 or 2.5 to 3.5, dep ending upon the indica tions. Lab Interpretation (test Normal code = 85602-5) [facility]IP[facility], [id number] 05:54:08 Test Item Value Reference Range Interpretation Comments LIPASE (test code = 4247628410) 290 U/L 0-220 H Lab Interpretation (test code = Abnormal 83108-7) [facility] WITH [id number] 05:42:09 Test Item Value Reference Range Interpretation Comments WBC (test code = See_Comment [Automated 3083-2) message] The sy stem which generated this result transmitted reference range : 4.20 - 10.70 10*3/?L. The reference range was not used to interpret this result as normal/abnormal . RBC (test code = See_Comment [Automated 789-8) message] The sy stem which generated this result transmitted reference range : 4.26 - 5.52 10*6/?L. The reference range was not used to interpret this result as normal/abnormal . HGB (test code = 15.7 g/dL 12.2-16.4 718-7) HCT (test code = 44.9 % 38.4-49.3 4544-3) MCV (test code = 90.0 fL 81.7-95.6 787-2) MCH (test code = 31.5 pg 26.1-32.7 785-6) MCHC (test code = 35.0 g/dL 31.2-35.0 786-4) RDW-SD (test code = 38.8 fL 38.5-51.6 81983-4) RDW-CV (test code = 11.9 % 12.1-15.4 L 788-0) PLT (test code = See_Comment [Automated 777-3) message] The sy stem which generated this result transmitted reference range : 150 - 328 10*3/ ?L. The reference r windy was not used to interpret this result as normal/abnormal . MPV (test code = 10.4 fL 9.8-13.0 52475-3) NRBC/100 WBC (test See_Comment [Automat ed code = 6371832581) message] The system which generated this result transmitted reference range : 0.0 - 10.0 /100 WBCs. The refer ence range was not u sed to interpret th is result as normal/abnormal . NRBC x10^3 (test code <0.01 See_Comment [Auto mated = 5029850646) message] The s ystem which generated this result transmitted reference range : 10*3/?L. The reference range was not used to interpret this result as normal/abnormal . GRAN MAT (NEUT) % 51.0 % (test code = 770-8) IMM GRAN % (test code 0.50 % = 6967503149) LYMPH % (test code = 38.0 % 736-9) MONO % (test code = 8.4 % 5905-5) EOS % (test code = 1.2 % 713-8) BASO % (test code = 0.9 % 706-2) GRAN MAT x10^3(ANC) 4.80 10*3/uL 1.99-6.95 (test code = 3161312828) IMM GRAN x10^3 (test 0.05 10*3/uL 0.00-0.06 code = 2785905993) LYMPH x10^3 (test code 3.57 10*3/uL 1.09-3.23 H = 731-0) MONO x10^3 (test code 0.79 10*3/uL 0.36-1.02 = 742-7) EOS x10^3 (test code = 0.11 10*3/uL 0.06-0.53 711-2) BASO x10^3 (test code 0.08 10*3/uL 0.01-0.09 = 704-7) Lab Interpretation Abnormal (test code = 79916-5) [facility]"
[2023-06-24 07:30] LABS: Absolute Lymphocytes (CBC) 1.5 K/uL (0.7-4.9); Hematocrit 46.7 % (39.6-49.0); Lymphocytes % 24.7 % (15.3-44.8); MCV 92.2 fL (80-100); MPV 8.7 fL (7.6-11.3); Platelets 213 thou/uL (152-406); RBC Red Blood Cell Count 5.06 M/uL (4.33-5.43)
[2023-06-24 07:31] LABS: Specific Gravity 1.027 (1.005-1.030); Urine Bilirubin NEGATIVE (Negative); Urine Blood Negative (Negative); Urine Clarity Clear (Clear); Urine Color Light-Yellow (Yellow); Urine Glucose NEGATIVE (Negative); Urine Protein NEGATIVE (Negative); Urine Urobilinogen Normal (Normal)
[2023-06-24] MEDS ORDERED: KETOROLAC 30 MG/ML INJ ONE (07:35)
[2023-06-24] MEDS ORDERED: ONDANSETRON 4 MG/2 ML VIAL ONE (07:35)
[2023-06-24] MEDS ORDERED: NA CHLORIDE 0.9% 1,000 ML ONE (07:35)
[2023-06-24] MEDS ORDERED: FAMOTIDINE 20 MG/2 ML VIAL IV ONE (07:35)
[2023-06-24 07:51] LABS: Albumin 4.1 g/dL (3.4-5.0); Bilirubin Total 0.3 mg/dL (0.2-1.0); Potassium 3.6 mEq/L (3.5-5.1)
[2023-06-24] MEDS ORDERED: FENTANYL CITR 100 MCG/2 ML ONE (07:57)
--- NOTE | 2023-06-24 08:17 | RAD REPORT ---
EXAM DESCRIPTION: US - Abdomen Exam Limited - 06/24/2023 7:53 am CLINICAL HISTORY: ABD PAIN COMPARISON: Abdomen Pelvis W Contrast dated 06/09/2021 TECHNIQUE: Sonographic grayscale and color flow images of the right upper abdominal quadrant were obtained. FINDINGS: The gallbladder is slightly contracted limiting evaluation, and demonstrates no gallstones . No pericholecystic fluid or gallbladder wall thickening. The common bile duct is not visualized. The liver demonstrates no findings of intrahepatic biliary dilatation. Diffuse hepatic parenchymal hy perechogenicity suggesting steatosis. Linear areas of hypoattenuation in the gallbladder bed suggesti ng fatty sparing. IMPRESSION: Slightly contracted gallbladder limiting evaluation. No cholelithiasis or findings to suggest acute cholecystitis. Diffuse hepatic steatosis. Common bile duct not visualized.
--- NOTE | 2023-06-24 08:29 | RAD REPORT ---
EXAM DESCRIPTION: CT - Abdomen Pelvis W Contrast - 06/24/2023 8:02 am CLINICAL HISTORY: Abd pain;Flank pain COMPARISON: Abdomen Pelvis W Contrast dated 06/09/2021; CT ABD PELVIS W CONTRAST dated 01/25/2015 TECHNIQUE: Thin cut axial CT imaging of the abdomen and pelvis was performed following intravenous a dministration of 100 mL Isovue 300. Multiplanar reformats were generated and reviewed. All CT scans are performed using dose optimization technique as appropriate and may include automated exposure control or mA/KV adjustment according to patient size. FINDINGS: No suspicious findings in the lung bases. The liver shows mild diffuse parenchymal hypoattenuation suggesting steatosis. Spleen, adrenal glands , and pancreas show no suspicious findings. Gallbladder and biliary tree are also without suspicious finding. Symmetric renal function is seen with no hydronephrosis or suspicious renal mass. No dilated bowel loops or bowel wall thickening. No free air, free fluid or inflammatory stranding. S mall left fat containing inguinal hernia No suspicious mass or bulky lymphadenopathy. The urinary clauido dder is without significant finding. No suspicious bony findings. IMPRESSION: No acute intra-abdominal process. Stable incidental findings as above.
--- NOTE | 2023-06-24 08:45 | ER ---
Nurse's Notes [facility] Name: Johnnie Carrasco Jr Age: 43 yrs Sex: Male : 1980 Arrival Date: 06/24/2023 Time: 06:38 Bed 13 Private MD: Diagnosis: Epigastric abdominal tenderness;Fatty (change of) liver, not elsewhere classified Presentation: 06/24 06:59 Chief complaint: Patient states: right side pain x 2 days pain gradually increasing kl denies injury or straining. 06:59 Coronavirus screen: Vaccine status: Patient reports receiving the 2nd dose of the covid kl vaccine. Ebola Screen: Patient negative for fever greater than or equal to 101.5 degrees Fahrenheit, and additional compatible Ebola Virus Disease symptoms. Initial Sepsis Screen: Does the patient meet any 2 criteria? No. Patient's initial sepsis screen is negative. Does the patient have a suspected source of infection? No. Patient's initial sepsis screen is negative. Risk Assessment: Do you want to hurt yourself or someone else? Patient reports no desire to harm self or others. 06:59 Method Of Arrival: Ambulatory 06:59 Acuity: KB 3 kl Triage Assessment: 07:02 General: Appears uncomfortable, Behavior is calm, cooperative. Pain: Complains of pain kl in anterior aspect of right lateral abdomen Pain currently is 5 out of 10 on a pain scale. at worst was 8 out of 10 on a pain scale. Aggravated by increased activity, repositioning. Historical: - Allergies: 07:01 No Known Allergies; kl - Home Meds: 07:01 Norvasc 5 mg Oral tablet daily [Active]; Lopressor 50 mg Oral tablet 2 times per day kl [Active]; - PMHx: 07:01 Anxiety; Hypertension; kl - PSHx: 07:01 None; kl - Immunization history:: Adult Immunizations not immunized. - Social history:: Smoking status: Patient reports the use of cigarette tobacco products, smokes one pack cigarettes per day. Screenin:39 [facility] ED Fall Risk Assessment (Adult) History of falling in the last 3 months, kc6 including since admission No falls in past 3 months (0 pts) Confusion or Disorientation No (0 pts) Intoxicated or Sedated No (0 pts) Impaired Gait No (0 pts) Mobility Assist Device Used No (0 pt) Altered Elimination No (0 pt) Score/Fall Risk Level 0 - 2 = Low Risk. Abuse screen: Denies threats or abuse. Denies injuries from another. Nutritional screening: No deficits noted. Tuberculosis screening: No symptoms or risk factors identified. Assessment: 07:39 General: Appears in no apparent distress. uncomfortable, Behavior is calm, cooperative, kc6 appropriate for age. Pain: Complains of pain in right upper quadrant Pain does not radiate. Pain currently is 5 out of 10 on a pain scale. Quality of pain is described as burning, Pain began 2-3 days ago. Is intermittent. Neuro: Level of Consciousness is awake, alert, obeys commands, Oriented to person, place, time, situation, Appropriate for age. Cardiovascular: Capillary refill < 3 seconds Rhythm is sinus rhythm. Respiratory: Airway is patent Trachea midline Respiratory effort is even, unlabored, Respiratory pattern is regular, symmetrical. GI: No signs and/or symptoms were reported involving the gastrointestinal system. Patient currently denies diarrhea, nausea, vomiting. : No signs and/or symptoms were reported regarding the genitourinary system. Denies burning with urination, urinary frequency, urgency. EENT: No signs and/or symptoms were reported regarding the EENT system. Derm: No signs and/or symptoms reported regarding the dermatologic system. Skin is intact, is healthy with good turgor, Skin is pink, warm \T\ dry. Musculoskeletal: No signs and/or symptoms reported regarding the musculoskeletal system. Circulation, motion, and sensation intact. Capillary refill < 3 seconds, Range of motion: intact in all extremities. 07:51 Reassessment: PT RETURNED FROM U/S. bp 08:27 Reassessment: Patient appears in no apparent distress at this time. No changes from kc6 previously documented assessment. Patient and/or family updated on plan of care and expected duration. Pain level reassessed. Patient is alert, oriented x 3, equal unlabored respirations, skin warm/dry/pink. Vital Signs: 06:59 BP 159 / 111; Pulse 74; Resp 18; Temp 98(O); Pulse Ox 98% on R/A; Weight 101.6 kg (M); kl Height 5 ft. 11 in. ; Pain 5/10; 07:40 BP 148 / 97; Pulse 72; Resp 19 S; Pulse Ox 97% on R/A; Pain 5/10; kc6 08:27 BP 149 / 95; Pulse 68; Resp 18 S; Pulse Ox 97% on R/A; kc6 06:59 Body Mass Index 31.24 (101.60 kg, 180.34 cm) kl 06:59 Pain Scale: Adult kl 07:40 Pain Scale: Adult kc6 ED Course: 06:40 Patient arrived in ED. rg4 07:01 Triage completed. kl 07:02 Nam Jauregui, RN is Primary Nurse. jb4 07:02 Sarita Kolb, KENNETH is Primary Nurse. kc6 07:11 Saji Chen MD is Attending Physician. akiko 07:39 Inserted saline lock: 20 gauge in right antecubital area, using aseptic technique. kc6 Blood collected. 07:39 Patient has correct armband on for positive identification. Bed in low position. Call kc6 light in reach. Side rails up X 1. 07:39 Arm band placed on. kc6 07:55 US Abdomen Limited In Process Unspecified. EDMS 08:04 CT Abd/Pelvis - IV Contrast Only In Process Unspecified. EDMS 08:44 Buck Aguilar MD is Referral Physician. akiko 09:18 No provider procedures requiring assistance completed. IV discontinued, intact, kc6 bleeding controlled, No redness/swelling at site. Pressure dressing applied. Administered Medications: 07:38 Drug: NS 0.9% IV 1000 ml Route: IV; Rate: 1 bolus; Site: right antecubital; kc6 08:59 Follow up: Response: No adverse reaction; IV Status: Completed infusion; IV Intake: kc6 1000ml 07:38 Drug: Famotidine IVP 20 mg Route: IVP; Site: right antecubital; kc6 08:03 Follow up: Response: No adverse reaction kc6 07:38 Drug: Ondansetron IVP 4 mg Route: IVP; Site: right antecubital; kc6 08:03 Follow up: Response: No adverse reaction kc6 07:39 Drug: TORadol - Ketorolac IVP 15 mg Route: IVP; Site: right antecubital; kc6 08:02 Follow up: Response: No adverse reaction; Pain is unchanged, physician notified kc6 07:53 Drug: fentaNYL (PF) IVP 50 mcg Route: IVP; Site: right antecubital; kc6 08:59 Follow up: Response: No adverse reaction; Pain is decreased; RASS: Alert and Calm (0) kc6 Medication: 09:18 VIS not applicable for this client. kc6 Intake: 08:59 IV: 1000ml; Total: 1000ml. kc6 Outcome: 08:44 Discharge ordered by . akiko 09:18 Discharged to home ambulatory. kc6 09:18 Condition: improved 09:18 Discharge instructions given to patient, Instructed on discharge instructions, follow up and referral plans. medication usage, Demonstrated understanding of instructions, follow-up care, medications, Prescriptions given X 2. 09:18 Patient left the ED. kc6 Signatures: Dispatcher [employer] EDMS Laurie Peres RN RN Saji John MD MD cha Garcia, Rubi rg4 Nam Jauregui RN RN jb4 Jose Alfredo Qiu RN RN Sarita Juan RN RN kc6
--- NOTE | 2023-06-24 08:45 | EDPHYS ---
Physician Documentation [facility] Name: Johnnie Carrasco Jr Age: 43 yrs Sex: Male : 1980 Arrival Date: 06/24/2023 Time: 06:38 Bed 13 Private MD: ED Physician Saji Chen HPI: 06/24 07:31 This 43 yrs old Male presents to ER via Ambulatory with complaints of Flank akiko Pain. 07:31 The patient complains of pain in the right mid back. The pain radiates to the right mid akiko back. Onset: The symptoms/episode began/occurred 3 day(s) ago. Modifying factors: The symptoms are alleviated by nothing. the symptoms are aggravated by movement. Associated signs and symptoms: Pertinent positives: nausea. Severity of pain: At its worst the pain was moderate in the emergency department the pain has resolved. The patient has not experienced similar symptoms in the past. Historical: - Allergies: 07:01 No Known Allergies; kl - Home Meds: 07:01 Norvasc 5 mg Oral tablet daily [Active]; Lopressor 50 mg Oral tablet 2 times per day kl [Active]; - PMHx: 07:01 Anxiety; Hypertension; kl - PSHx: 07:01 None; kl - Immunization history:: Adult Immunizations not immunized. - Social history:: Smoking status: Patient reports the use of cigarette tobacco products, smokes one pack cigarettes per day. ROS: 07:31 Constitutional: Negative for fever, chills, and weight loss, Eyes: Negative for injury, akiko pain, redness, and discharge, ENT: Negative for injury, pain, and discharge, Neck: Negative for injury, pain, and swelling, Cardiovascular: Negative for chest pain, palpitations, and edema, Respiratory: Negative for shortness of breath, cough, wheezing, and pleuritic chest pain, Back: Negative for injury and pain, : Negative for injury, bleeding, discharge, and swelling, MS/Extremity: Negative for injury and deformity, Skin: Negative for injury, rash, and discoloration, Neuro: Negative for headache, weakness, numbness, tingling, and seizure, Psych: Negative for depression, anxiety, suicide ideation, homicidal ideation, and hallucinations, Allergy/Immunology: Negative for hives, rash, and allergies, Endocrine: Negative for neck swelling, polydipsia, polyuria, polyphagia, and marked weight changes, Hematologic/Lymphatic: Negative for swollen nodes, abnormal bleeding, and unusual bruising. 07:31 Abdomen/GI: Positive for abdominal pain, of the right upper quadrant. Exam: 07:31 Constitutional: This is a well developed, well nourished patient who is awake, alert, akiko and in no acute distress. Head/Face: Normocephalic, atraumatic. Eyes: Pupils equal round and reactive to light, extra-ocular motions intact. Lids and lashes normal. Conjunctiva and sclera are non-icteric and not injected. Cornea within normal limits. Periorbital areas with no swelling, redness, or edema. ENT: Nares patent. No nasal discharge, no septal abnormalities noted. Tympanic membranes are normal and external auditory canals are clear. Oropharynx with no redness, swelling, or masses, exudates, or evidence of obstruction, uvula midline. Mucous membranes moist. Neck: Trachea midline, no thyromegaly or masses palpated, and no cervical lymphadenopathy. Supple, full range of motion without nuchal rigidity, or vertebral point tenderness. No Meningismus. Chest/axilla: Normal chest wall appearance and motion. Nontender with no deformity. No lesions are appreciated. Cardiovascular: Regular rate and rhythm with a normal S1 and S2. No gallops, murmurs, or rubs. Normal PMI, no JVD. No pulse deficits. Respiratory: Lungs have equal breath sounds bilaterally, clear to auscultation and percussion. No rales, rhonchi or wheezes noted. No increased work of breathing, no retractions or nasal flaring. Back: No spinal tenderness. No costovertebral tenderness. Full range of motion. Male : Normal genitalia with no discharge or lesions. Skin: Warm, dry with normal turgor. Normal color with no rashes, no lesions, and no evidence of cellulitis. MS/ Extremity: Pulses equal, no cyanosis. Neurovascular intact. Full, normal range of motion. Neuro: Awake and alert, GCS 15, oriented to person, place, time, and situation. Cranial nerves II-XII grossly intact. Motor strength 5/5 in all extremities. Sensory grossly intact. Cerebellar exam normal. Normal gait. Psych: Awake, alert, with orientation to person, place and time. Behavior, mood, and affect are within normal limits. 07:31 ECG was reviewed by the Attending Physician. 07:31 Abdomen/GI: Inspection: abdomen appears normal, Bowel sounds: normal, Palpation: moderate abdominal tenderness, in the right upper quadrant, Liver: no appreciated palpable abnormalities, Hernia: not appreciated. Vital Signs: 06:59 BP 159 / 111; Pulse 74; Resp 18; Temp 98(O); Pulse Ox 98% on R/A; Weight 101.6 kg (M); kl Height 5 ft. 11 in. ; Pain 5/10; 07:40 BP 148 / 97; Pulse 72; Resp 19 S; Pulse Ox 97% on R/A; Pain 5/10; kc6 08:27 BP 149 / 95; Pulse 68; Resp 18 S; Pulse Ox 97% on R/A; kc6 06:59 Body Mass Index 31.24 (101.60 kg, 180.34 cm) kl 06:59 Pain Scale: Adult kl 07:40 Pain Scale: Adult kc6 MDM: 07:11 Patient medically screened. [facility] 07:33 Differential diagnosis: nephrolithiasis, pyelonephritis, UTI, diverticulitis, akiko pancreatitis. Data reviewed: vital signs, nurses notes, lab test result(s), EKG, radiologic studies, CT scan, plain films. Consideration of Admission/Observation Escalation of care including admission/observation considered. I considered the following discharge prescriptions or medication management in the emergency department Medications were administered in the Emergency Department. See MAR. Test considered but Not performed: MRI: no mri abd. Care significantly affected by the following chronic conditions: Hypertension, anxiety. Counseling: I had a detailed discussion with the patient and/or guardian regarding the historical points, exam findings, and any diagnostic results supporting the discharge/admit diagnosis, lab results, radiology results, the need for outpatient follow up, for definitive care, a family practitioner. 06/24 07:16 Order name: CBC with Diff; Complete Time: 08:15 [facility] 06/24 07:16 Order name: CMP; Complete Time: 08:15 [facility] 06/24 07:16 Order name: Lipase; Complete Time: 08:15 [facility] 06/24 07:16 Order name: Urinalysis w/ reflexes; Complete Time: 08:15 [facility] 06/24 07:16 Order name: CT Abd/Pelvis - IV Contrast Only; Complete Time: 08:59 [facility] 06/24 07:28 Order name: US Abdomen Limited; Complete Time: 08:59 akiko 06/24 07:16 Order name: EKG; Complete Time: 07:17 akiko 06/24 07:16 Order name: IV Saline Lock; Complete Time: 07:21 akiko 06/24 07:16 Order name: Labs collected and sent; Complete Time: 07:21 akiko 06/24 07:16 Order name: EKG - Nurse/Tech; Complete Time: 07:38 akiko EC:31 Rate is 75 beats/min. Rhythm is regular. QRS [place] is Normal. GA interval is normal. QRS akiko interval is normal. QT interval is normal. No Q waves. T waves are Normal. No ST changes noted. Clinical impression: NSR w/ Non-specific ST/T Changes and No evidence of ischemia. Interpreted by me. Reviewed by me. Administered Medications: 07:38 Drug: NS 0.9% IV 1000 ml Route: IV; Rate: 1 bolus; Site: right antecubital; kc6 08:59 Follow up: Response: No adverse reaction; IV Status: Completed infusion; IV Intake: kc6 1000ml 07:38 Drug: Famotidine IVP 20 mg Route: IVP; Site: right antecubital; kc6 08:03 Follow up: Response: No adverse reaction kc6 07:38 Drug: Ondansetron IVP 4 mg Route: IVP; Site: right antecubital; kc6 08:03 Follow up: Response: No adverse reaction kc6 07:39 Drug: TORadol - Ketorolac IVP 15 mg Route: IVP; Site: right antecubital; kc6 08:02 Follow up: Response: No adverse reaction; Pain is unchanged, physician notified kc6 07:53 Drug: fentaNYL (PF) IVP 50 mcg Route: IVP; Site: right antecubital; kc6 08:59 Follow up: Response: No adverse reaction; Pain is decreased; RASS: Alert and Calm (0) kc6 Disposition Summary: 06/24/23 08:44 Discharge Ordered Location: Home akiko Problem: new akiko Symptoms: have improved akiko Condition: Stable akiko Diagnosis - Epigastric abdominal tenderness akiko - Fatty (change of) liver, not elsewhere classified akiko Followup: akiko - With: Private Physician - When: 2 - 3 days - Reason: Recheck today's complaints, Continuance of care, Re-evaluation by your physician Followup: akiko - With: - When: 2 - 3 days - Reason: Recheck today's complaints, Re-evaluation by your physician Discharge Instructions: - Discharge Summary Sheet akiko - Abdominal Pain, Adult akiko - Flank Pain, Adult akiko - Abdominal Pain, Adult, [id number] akiko - Fatty Liver Disease akiko - Flank Pain, Adult, [id number] [facility] Forms: - Medication Reconciliation Form akiko - Thank You Letter akiko - Antibiotic Education akiko - Prescription Opioid Use akiko - Patient Portal Instructions akiko - Leadership Thank You Letter akiko - Work release form kc6 Prescriptions: - Pepcid 20 mg Oral Tablet - take 1 tablet by ORAL route every 12 hours for 21 days; 42 tablet; Refills: 0, [facility] Product Selection Permitted - dicyclomine 20 mg Oral Tablet - take 1 tablet by ORAL route 4 times per day; 28 tablet; Refills: 0, Product [facility] Selection Permitted Signatures: Dispatcher [employer] Laurie Bansal, Saji Antony RN, MD MD cha Campbell, Kaitlyn, RN RN kc6
[2023-06-24 09:22] VITALS: TEMP 98
[2023-06-24 09:24] VITALS: O2SAT 97
[2023-06-24 09:26] VITALS: BP 149/95
--- NOTE | 2023-06-25 13:59 | EKG ---
Test Date: 2023-06-24 Test Time: 07:30:37 Professor Of Biblical Studies: CHRISTO MEASUREMENT RESULTS: Intervals: Rate: 78 [place]: 148 QRSD: 104 QT: 402 QTc: 458 [place]: P: 47 [place]: 148 QRS: 79 T: 58 INTERPRETIVE STATEMENTS: Normal sinus rhythm Normal ECG Compared to ECG 02/10/2021 19:51:14 No significant changes Electronically Signed On 06-25-23 13:56:52 CDT by Theo Clemons
== END 2023-06-24 09:18 | disposition home or self-care (01) ==
LOC: ER 06:38
DX: K76.0 Fatty (change of) liver, not elsewhere classified (principal); R11.0 Nausea; I10 Essential (primary) hypertension; F41.9 Anxiety disorder, unspecified; F17.210 Nicotine dependence, cigarettes, uncomplicated
CPT/HCPCS: 96361; 93005; 85025; 36415; 81003; 83690; 80053; 74177; 76705; 96375; 96374; 99284; Q9967; J3010; J2405; J7030

== ENCOUNTER → 2023-11-26 | Emergency (ER) | payer BC ==
[~2023-11-26] MED LIST: hydrOXYzine HCL 25 MG TAB ONE
[2023-11-26 11:12] LABS: Absolute Lymphocytes (CBC) 1.4 K/uL (0.7-4.9); Hematocrit 46.9 % (39.6-49.0); Lymphocytes % 20.6 % (15.3-44.8); MCV 92.4 fL (80-100); MPV 8.7 fL (7.6-11.3); Platelets 211 thou/uL (152-406); RBC Red Blood Cell Count 5.08 M/uL (4.33-5.43)
[2023-11-26 11:33] LABS: Potassium 3.5 mEq/L (3.5-5.1); Troponin High Sensitivity 11.8 pg/mL (<58.9)
--- NOTE | 2023-11-26 12:15 | RAD REPORT ---
EXAM DESCRIPTION: Brody Single View11/26/2023 11:12 am CLINICAL HISTORY: Chest pain COMPARISON: 2020 FINDINGS: The lungs appear clear of acute infiltrate. The heart is normal size IMPRESSION: No acute abnormalities displayed
--- NOTE | 2023-11-26 14:00 | EDPHYS ---
Physician Documentation [facility] Name: Johnnie Carrasco Jr Age: 43 yrs Sex: Male : 1980 Arrival Date: 11/26/2023 Time: 10:26 Bed 5 Private MD: ED Physician Rodrigo Castillo HPI: 11/26 10:47 This 43 yrs old Male presents to ER via Ambulatory with complaints of Chest ec2 Pain. 10:47 Patient arrives today for evaluation of chest pain. States that he is not having chest ec2 pain for the past hour. States that he feels that it may be anxiety related. He reports that the symptoms are intermittent. He states he has a history of anxiety and this feels somewhat similar. Patient reports no difficulty breathing at this time, denies any other concerns. Reports history of hypertension as well as anxiety. Reports she regularly smokes socially.. Historical: - Allergies: 10:43 No Known Allergies; hb - Home Meds: 10:43 Lopressor 50 mg Oral tablet 2 times per day [Active]; Norvasc 5 mg Oral tablet daily hb [Active]; Buspirone Oral [Active]; - PMHx: 10:43 Anxiety; Hypertension; hb - PSHx: 10:43 None; hb - Immunization history:: Adult Immunizations up to date. - Social history:: Smoking status: Patient reports the use of cigarette tobacco products. ROS: 10:47 Constitutional: as per hpi ec2 Exam: 10:47 Constitutional: GEN: NAD Head: atraumatic Eyes: EOMI Ears: External ears are ec2 normal. CV: regular rate, regular rate, no murmur LUNGS: no respiratory distress, no wheezes, rales, or rhonchi ABD: non-distended SKIN: no evidence of rashes MSK: no evidence of trauma NEURO: moves all extremities equally Vital Signs: 10:41 BP 141 / 109; Pulse 70; Resp 16; Temp 98.2(O); Pulse Ox 100% on R/A; Weight 99.34 kg; hb Height 5 ft. 11 in. ; Pain 4/10; 11:33 BP 129 / 98; Pulse 76; Pulse Ox 97% on R/A; ap3 13:35 BP 149 / 104; Pulse 65; Resp 17; Pulse Ox 97% on R/A; Pain 0/10; nj1 14:15 BP 141 / 101; Pulse 74; Resp 19 S; Pulse Ox 98% ; Pain 0/10; nj1 10:41 Body Mass Index 30.54 (99.34 kg, 180.34 cm) hb 10:41 Pain Scale: Adult hb 13:35 Pain Scale: Adult nj1 14:15 Pain Scale: Adult nj1 MDM: 10:46 Patient medically screened. ec2 10:47 Data reviewed: vital signs. ED course: Patient arrives today for evaluation of chest ec2 pain. Examination remarkable for well-appearing nontoxic in which was otherwise in no acute distress. Will obtain lab work, EKG, chest x-ray for further assessment of the patient complaint. Currently considering process such as ACS, low suspicion for PE or dissection. Additionally considering anxiety.. 10:49 ED course: EKG independently reviewed and interpreted by me, shows normal sinus rhythm, ec2 rate of 72, no acute ST segment elevations, nonconcerning intervals.. 11:45 ED course: Metabolic profile is reassuring, CBC is reassuring, troponin within normal ec2 ranges. Will obtain repeat EKG and troponin at the 2-hour haile. . 12:37 ED course: Chest x-ray shows no acute intrathoracic process.. ec2 13:16 ED course: Repeat EKG independently reviewed and interpreted by me, shows normal sinus ec2 rhythm, rate of 64, no acute ST segment elevations, nonconcerning intervals. . 13:59 ED course: Troponin remains unchanged. Will discharge home. Return precautions given.. ec2 11/26 10:48 Order name: Basic Metabolic Panel; Complete Time: 11:44 ec2 11/26 10:48 Order name: CBC with Diff; Complete Time: 11:44 ec2 11/26 10:48 Order name: Troponin HS; Complete Time: 11:44 ec2 11/26 12:37 Order name: Troponin HS; Complete Time: 13:59 ec2 11/26 10:48 Order name: XRAY Chest (1 view); Complete Time: 12:37 ec2 11/26 10:44 Order name: EKG; Complete Time: 10:44 hb 11/26 10:44 Order name: EKG - Nurse/Tech; Complete Time: 10:44 hb 11/26 10:48 Order name: Cardiac monitoring; Complete Time: 10:55 ec2 11/26 10:48 Order name: IV Saline Lock; Complete Time: 11:06 ec2 11/26 10:48 Order name: Labs collected and sent; Complete Time: 11: ec2 11/26 10:48 Order name: O2 Per Protocol; Complete Time: 10:55 ec2 11/26 10:48 Order name: O2 Sat Monitoring; Complete Time: 10:55 ec2 11/26 12:37 Order name: EKG - Nurse/Tech; Complete Time: 13:23 ec2 Administered Medications: 10:55 Drug: hydrOXYzine PO 50 mg PO once Route: PO; nj1 14:20 Follow up: Response: No adverse reaction nj1 Disposition Summary: 11/26/23 13:59 Discharge Ordered Notes: Location: Home ec2 Condition: Stable ec2 Diagnosis - Chest pain, unspecified ec2 Followup: ec2 - With: Private Physician - When: - Reason: Recheck today's complaints Discharge Instructions: - Discharge Summary Sheet ec2 - Nonspecific Chest Pain, Adult ec2 Forms: - Work release form ec2 - Medication Reconciliation Form ec2 - Thank You Letter ec2 - Antibiotic Education ec2 - Prescription Opioid Use ec2 - Patient Portal Instructions ec2 - Leadership Thank You Letter ec2 Signatures: Dispatcher [employer] Lynnette Santos RN RN Rhona Nguyen RN RN nj1 Rodrigo Castillo MD MD ec2
--- NOTE | 2023-11-26 14:00 | ER ---
Nurse's Notes [facility] Name: Johnnie Carrasco Jr Age: 43 yrs Sex: Male : 1980 Arrival Date: 11/26/2023 Time: 10:26 Bed 5 Private MD: Diagnosis: Chest pain, unspecified Presentation: 11/26 10:41 Chief complaint: Intermittent left sided chest pain, palpitations, and SOB that started hb 1.5 hours ago. Coronavirus screen: At this time, the client does not indicate any symptoms associated with coronavirus-19. Ebola Screen: No symptoms or risks identified at this time. Initial Sepsis Screen: Does the patient meet any 2 criteria? No. Patient's initial sepsis screen is negative. Does the patient have a suspected source of infection? No. Patient's initial sepsis screen is negative. Risk Assessment: Do you want to hurt yourself or someone else? Patient reports no desire to harm self or others. Onset of symptoms was November 26, 2023. 10:41 Method Of Arrival: Ambulatory hb 10:41 Acuity: KB 3 hb Historical: - Allergies: 10:43 No Known Allergies; hb - Home Meds: 10:43 Lopressor 50 mg Oral tablet 2 times per day [Active]; Norvasc 5 mg Oral tablet daily hb [Active]; Buspirone Oral [Active]; - PMHx: 10:43 Anxiety; Hypertension; hb - PSHx: 10:43 None; hb - Immunization history:: Adult Immunizations up to date. - Social history:: Smoking status: Patient reports the use of cigarette tobacco products. Screenin:[address] [facility] ED Fall Risk Assessment (Adult) Score/Fall Risk Level 0 - 2 = Low Risk nj1 Oriented to surroundings, Maintained a safe environment, Hourly rounding (assess needs \\T\\ fall precautionary measures) done. Abuse screen: Denies threats or abuse. Denies injuries from another. Nutritional screening: No deficits noted. Tuberculosis screening: No symptoms or risk factors identified. Assessment: 10:56 General: Appears in no apparent distress. comfortable, Behavior is calm, cooperative, nj1 appropriate for age. Pain: Complains of pain in chest Pain does not radiate. Pain currently is 5 out of 10 on a pain scale. Quality of pain is described as "weird" Pain began 2 hours ago. Neuro: Level of Consciousness is awake, alert, obeys commands, Oriented to person, place, time, situation. Cardiovascular: Patient's skin is warm and dry. Respiratory: Airway is patent Respiratory effort is even, unlabored. 14:15 Reassessment: Patient appears in no apparent distress at this time. Patient is alert, nj1 oriented x 3, equal unlabored respirations, skin warm/dry/pink. Patient denies pain at this time. Vital Signs: 10:41 BP 141 / 109; Pulse 70; Resp 16; Temp 98.2(O); Pulse Ox 100% on R/A; Weight 99.34 kg; hb Height 5 ft. 11 in. ; Pain 4/10; 11:33 BP 129 / 98; Pulse 76; Pulse Ox 97% on R/A; ap3 13:35 BP 149 / 104; Pulse 65; Resp 17; Pulse Ox 97% on R/A; Pain 0/10; nj1 14:15 BP 141 / 101; Pulse 74; Resp 19 S; Pulse Ox 98% ; Pain 0/10; nj1 10:41 Body Mass Index 30.54 (99.34 kg, 180.34 cm) hb 10:41 Pain Scale: Adult hb 13:35 Pain Scale: Adult nj1 14:15 Pain Scale: Adult nj1 ED Course: 10:31 Patient arrived in ED. mg5 10:33 Rodrigo Castillo MD is Attending Physician. ec2 10:43 Triage completed. hb 10:43 Arm band placed on. hb 10:43 EKG completed in triage. Results shown to MD. hb 10:48 Rhona Nguyen, RN is Primary Nurse. nj1 10:58 Provided Education on: call light, fall precautions. nj1 10:58 Patient has correct armband on for positive identification. Bed in low position. Call [facility] light in reach. Client placed on continuous cardiac and pulse oximetry monitoring. NIBP monitoring applied. 10:58 Patient maintains SpO2 saturation greater than 95% on room air. nj1 11:07 Initial lab(s) drawn, by me, sent to lab. Inserted saline lock: 20 gauge in right [id number] antecubital area, using aseptic technique. Blood collected. 11:13 XRAY Chest (1 view) In Process Unspecified. EDMS 13:13 Repeat lab(s) drawn. by me, sent to lab. em1 14:20 No provider procedures requiring assistance completed. nj1 14:20 IV discontinued, intact, bleeding controlled. nj1 Administered Medications: 10:55 Drug: hydrOXYzine PO 50 mg PO once Route: PO; nj1 14:20 Follow up: Response: No adverse reaction nj1 Medication: 14:20 VIS not applicable for this client. nj1 Outcome: 13:59 Discharge ordered by . ec2 14:20 Patient left the ED. nj1 14:20 Discharged to home ambulatory, nj1 14:20 Condition: stable 14:20 Discharge instructions given to patient, Instructed on discharge instructions, follow up and referral plans. Demonstrated understanding of instructions, follow-up care, Signatures: Dispatcher [employer] EDBrigido Boucher em1 Lynnette Joseph RN RN Veronique Juarez RN RN ap3 Carmencita Denise Norma, RN RN nj1 Ansley Waller mg5 Rodrigo Castillo MD MD ec2 Maurice Hale [id number] Corrections: (The following items were deleted from the chart) 10:58 10:56 Pain: Complains of pain in chest Pain does not radiate. Pain currently is 5 out nj1 of 10 on a pain scale. Quality of pain is described as "weird" nj1 14:45 13:35 BP 149 / 104; Pulse 65bpm; Resp 17bpm; Pulse Ox 97%; nj1 nj1 14:46 14:44 Patient left the ED. nj
[2023-11-26 16:41] VITALS: BP 141/101; TEMP 98.2; O2SAT 98
--- NOTE | 2023-11-29 17:01 | EKG ---
Test Date: 2023-11-26 Test Time: 13:14:12 Airport Maintenance Laborer: JEM MEASUREMENT RESULTS: Intervals: Rate: 64 [place]: 146 QRSD: 104 QT: 412 QTc: 425 [place]: P: 44 [place]: 146 QRS: 84 T: 61 INTERPRETIVE STATEMENTS: Normal sinus rhythm Normal ECG Compared to ECG 06/24/2023 07:30:37 No significant changes Electronically Signed On 11-29-23 16:54:01 YARDER BOSS by Theo Clemons
--- NOTE | 2023-11-29 17:02 | EKG ---
Test Date: 2023-11-26 Test Time: 10:39:30 Geographic Information Systems Analyst: HB MEASUREMENT RESULTS: Intervals: Rate: 72 [place]: 140 QRSD: 104 QT: 404 QTc: 442 [place]: P: 12 [place]: 140 QRS: -18 T: 3 INTERPRETIVE STATEMENTS: Normal sinus rhythm Normal ECG Compared to ECG 06/24/2023 07:30:37 No significant changes Electronically Signed On 11-29-23 16:54:28 PONY RIDE OPERATOR by Theo Clemons
== END ==
LOC: ER 10:26
DX: R07.9 Chest pain, unspecified (principal); I10 Essential (primary) hypertension; F41.9 Anxiety disorder, unspecified; F17.210 Nicotine dependence, cigarettes, uncomplicated; Z79.899 Other long term (current) drug therapy
CPT/HCPCS: 36415; 71045; 80048; 84484; 85025; 93005; 99284

== ENCOUNTER 2024-11-08 11:35 | Emergency (ER) | payer BC ==
[2024-11-08] MEDS ORDERED: ASPIRIN 81 MG CHEWABLE TABLET ONE (11:47)
[2024-11-08 12:19] LABS: Absolute Eosinophils 0.1 K/uL (0-0.5); Absolute Lymphocytes (CBC) 1.8 K/uL (0.7-4.9); Absolute Monocytes 0.4 K/uL (0.1-1.3); Absolute Neutrophil 4.6 K/uL (1.8-8.0); Basophils % 0.5 % (0-1.3); Eosinophils % 1.2 % (0-4.4); Hematocrit 46.6 % (39.6-49.0); Lymphocytes % 25.9 % (15.3-44.8); MCH 31.6 pg (27.0-35.0); MCHC 34.5 g/dL (32.0-36.0); MCV 91.8 fL (80-100); MPV 8.9 fL (7.6-11.3); Monocytes % 6.2 % (3.3-12.3); Neutrophils % 66.2 % (41.7-73.7); Nucleated Red Blood Cells % 0.1 % (0-0); Platelets 214 thou/uL (152-406); RBC Red Blood Cell Count 5.07 M/uL (4.33-5.43); Red Cell Distribution Width 13.1 % (12.1-15.2)
[2024-11-08 12:24] LABS: Anion Gap 11.6 mEq/L (5.0-15.0); Potassium 3.6 mEq/L (3.5-5.1); Troponin High Sensitivity 10.5 pg/mL (<58.9)
[2024-11-08] MEDS ORDERED: HYDRALAZINE HCL 20 MG/ML VIAL ONE (12:30)
--- NOTE | 2024-11-08 12:30 | RAD REPORT ---
EXAMINATION: ONE VIEW CHEST XR CLINICAL INDICATION: CHEST PAIN TECHNIQUE: Frontal chest projection is submitted. Examination is limited by patient positioning and t echnique. COMPARISON: 11/26/2023 FINDINGS: The lungs are well inflated and clear. The heart is normal in size. No displaced fractures identified . IMPRESSION: No acute intrathoracic abnormalities.
[2024-11-08] MEDS ORDERED: LORazepam 2 MG/ML VIAL ONE (12:40)
--- NOTE | 2024-11-08 13:23 | EDPHYS ---
Physician Documentation [facility] Name: Johnnie Carrasco Jr Age: 44 yrs Sex: Male : 1980 Arrival Date: 11/08/2024 Time: 11:35 Bed 3 Private MD: ED Physician Adiel Gar HPI: 11/08 11:50 This 44 yrs old Male presents to ER via Unassigned with complaints of High bo1 Blood Pressure. 11:50 Onset: The symptoms/episode began/occurred suddenly, this morning, Pt was at work and bo1 states he just had a panic attack. His BP was high. Been off his HBP med for 3 weeks. 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 Historical: - Allergies: 11:58 No Known Allergies; jl7 - Home Meds: 11:58 Norvasc 5 mg Oral tablet daily [Active]; Lopressor 50 mg Oral tablet 2 times per day jl7 [Active]; Buspirone Oral [Active]; - PMHx: 11:58 Anxiety; Hypertension; jl7 - Immunization history:: Adult Immunizations unknown. - Infectious Disease History:: Denies. - Social history:: Smoking status: Patient reports the use of cigarette tobacco products. ROS: 13:19 Constitutional: Negative for fever, chills, and weight loss bo1 13:19 Neck: Negative for pain with movement, pain at rest, 13:19 Cardiovascular: Positive for palpitations, Negative for chest pain, 13:19 Respiratory: Positive for shortness of breath, Negative for cough, 13:19 Abdomen/GI: Negative for abdominal pain, nausea and vomiting, 13:19 MS/extremity: Negative for acute changes, pain, paresthesias, swelling, 13:19 Skin: Negative for rash, 13:19 All other systems are negative, Exam: 12:10 ECG was reviewed by the Attending Physician. bo1 13:32 Constitutional: This is a well developed, well nourished patient who is awake, alert, bo1 and in no acute distress. 13:32 Constitutional: The patient appears alert, awake, comfortable, anxious, 13:32 Neck: External neck: is normal, no acute changes, 13:32 Cardiovascular: Rate: normal, Rhythm: regular, Pulses: no pulse deficits are appreciated, 13:32 Respiratory: the patient does not display signs of respiratory distress, Respirations: normal, no acute changes, Breath sounds: are clear throughout, 13:32 Abdomen/GI: Palpation: abdomen is soft and non-tender, 13:32 Musculoskeletal/extremity: Extremities: all appear grossly normal, with no appreciated pain with palpation, DVT Exam: no pain, no swelling, no tenderness, 13:32 Neuro: Orientation: is normal, appropriate for stated age, Mentation: is normal, appropriate for stated age, Memory: is normal, appropriate for stated age, 13:32 Psych: Behavior/mood is anxious, Pt reports he gets "panic attacks" periodically. Vital Signs: 11:41 BP 164 / 107; Pulse 99; Resp 17; Temp 97.9; Pulse Ox 96% ; Weight 102.06 kg; Height 5 jl7 ft. 11 in. ; Pain 8/10; 12:13 BP 152 / 114; Pulse 96; Resp 18; Pulse Ox 99% on R/A; ld1 12:44 BP 130 / 99; Pulse 97; Resp 20; Pulse Ox 99% on R/A; ld1 13:54 BP 129 / 95; Pulse 91; Resp 18; Pulse Ox 100% on R/A; ld1 11:41 Body Mass Index 31.38 (102.06 kg, 180.34 cm) jl7 11:41 Pain Scale: Adult jl7 MDM: 11:42 Medical Screening Exam initiated bo1 13:20 Differential diagnosis: hypertensive crisis, Ran out of meds and hx of anxiety. Will bo1 refill his meds and F/U as OP. Data reviewed: vital signs, lab test result(s), EKG, radiologic studies. Medication response: Ativan and hydralazine IV. ED course: Pt is well and much improved. Will refill meds as he is unable to get his appt with his PCP. 11/08 11:44 Order name: Basic Metabolic Panel; Complete Time: 12:32 11/08 11:44 Order name: CBC with Diff; Complete Time: 12:32 11/08 11:44 Order name: Troponin HS; Complete Time: 12:32 11/08 11:44 Order name: XRAY Chest (1 view); Complete Time: 12:32 11/08 11:44 Order name: Cardiac monitoring; Complete Time: 11:44 ld1 11/08 11:44 Order name: EKG - Nurse/Tech; Complete Time: :52 ld11/08 11:44 Order name: IV Saline Lock; Complete Time: :52 ld11/08 11:44 Order name: Labs collected and sent; Complete Time: 11:52 ld1 11/08 11:44 Order name: O2 Per Protocol; Complete Time: :44 ld11/08 11:44 Order name: O2 Sat Monitoring; Complete Time: :44 ld1 EC:10 Rate is 99 beats/min. Rhythm is regular. QRS [place] is Normal. [place] interval is normal. QRS bo1 interval is normal. QT interval is normal. No Q waves. T waves are Normal. No ST changes noted. Clinical impression: Normal ECG. Interpreted by me. Reviewed by me. Administered Medications: 11:45 Drug: Aspirin PO Chewable Tablet 324 mg PO once; 81 mg tablets x 4 Route: PO; ld1 11:52 Follow up: Response: No adverse reaction ld1 12:32 Drug: hydrALAZINE IVP 20 mg IVP once; For SBP > 140 mmHg. Hold if less than 120 mmHg. ld1 Route: IVP; Site: left forearm; 12:43 Drug: Ativan IVP 1 mg IVP once Route: IVP; Site: left forearm; ld1 Disposition Summary: 11/08/24 13:23 Discharge Ordered Notes: Location: Home bo1 Problem: an acute exacerbation bo1 Symptoms: have improved bo1 Condition: Stable bo1 Diagnosis - Anxiety disorder, unspecified bo1 - Essential (primary) hypertension bo1 Followup: bo1 - With: Private Physician - When: Upon discharge from the Emergency Department - Reason: Recheck today's complaints, Continuance of care Discharge Instructions: - Discharge Summary Sheet bo1 - Panic Attack bo1 - Hypertension, Adult bo1 Forms: - Medication Reconciliation Form bo1 - Antibiotic Education bo1 - Prescription Opioid Use bo1 - Patient Portal Instructions bo1 - Leadership Thank You Letter bo1 Prescriptions: - amlodipine 5 mg Oral tablet - take 1 tablet ORAL route daily; 30 tablet; Refills: 0, Product Selection bo1 Permitted - Hydroxyzine HCl 50 mg Oral Tablet - take 1 tablet ORAL route every 8 hours As needed; 20 tablet; Refills: 0, bo1 Product Selection Permitted - Metoprolol Tartrate 25 mg Oral tablet - take 1 tablet ORAL route once daily with a meal; 30 tablet; Refills: 0, Product bo1 Selection Permitted Signatures: Dispatcher [employer] Balbir Rodrigues RN RN jl7 Tanesha Romo RN RN ld1 Adiel Gar MD MD bo1
--- NOTE | 2024-11-08 13:23 | ER ---
Nurse's Notes [facility] Name: Johnnie Carrasco Jr Age: 44 yrs Sex: Male : 1980 Arrival Date: 11/08/2024 Time: 11:35 Bed 3 Private MD: Diagnosis: Anxiety disorder, unspecified;Essential (primary) hypertension Presentation: 11/08 11:41 Chief complaint: Patient states: [employer] sent to be evaluated for high BP, 190/120 jl7 at work, and CP. 11:41 Coronavirus screen: At this time, the client does not indicate any symptoms associated jl7 with coronavirus-19. Ebola Screen: No symptoms or risks identified at this time. Initial Sepsis Screen: Does the patient meet any 2 criteria? No. Patient's initial sepsis screen is negative. Does the patient have a suspected source of infection? No. Patient's initial sepsis screen is negative. Risk Assessment: Do you want to hurt yourself or someone else? Patient reports no desire to harm self or others. Onset of symptoms is unknown. 11:41 Method Of Arrival: Ambulatory jl7 11:41 Acuity: KB 2 jl7 Triage Assessment: 11:41 General: Appears in no apparent distress. uncomfortable, Behavior is calm, cooperative, jl7 appropriate for age. Pain: Complains of pain in anterior aspect of left upper chest Pain currently is 8 out of 10 on a pain scale. Quality of pain is described as squeezing. Neuro: Level of Consciousness is awake, alert, obeys commands, Oriented to person, place, time, situation. Cardiovascular: Patient's skin is warm and dry. Rhythm is sinus rhythm. Respiratory: Airway is patent Respiratory effort is even, unlabored, Respiratory pattern is regular, symmetrical. Derm: Skin is pink, warm \T\ dry. Historical: - Allergies: 11:58 No Known Allergies; jl7 - Home Meds: 11:58 Norvasc 5 mg Oral tablet daily [Active]; Lopressor 50 mg Oral tablet 2 times per day jl7 [Active]; Buspirone Oral [Active]; - PMHx: 11:58 Anxiety; Hypertension; jl7 - Immunization history:: Adult Immunizations unknown. - Infectious Disease History:: Denies. - Social history:: Smoking status: Patient reports the use of cigarette tobacco products. Screenin:13 [facility] ED Fall Risk Assessment (Adult) History of falling in the last 3 months, ld1 including since admission No falls in past 3 months (0 pts) Confusion or Disorientation No (0 pts) Intoxicated or Sedated No (0 pts) Impaired Gait No (0 pts) Mobility Assist Device Used No (0 pt) Altered Elimination No (0 pt) Score/Fall Risk Level 0 - 2 = Low Risk Oriented to surroundings, Maintained a safe environment, Educated pt \T\ family on fall prevention, incl call for assistance when getting out of bed, Assessed \T\ reinforced patient's understanding of fall precautions, Provided non-skid footwear, Hourly rounding (assess needs \T\ fall precautionary measures) done, Used ambulatory aids as needed (educated on \T\ assisted with), Used gait belt as appropriate. Abuse screen: Denies threats or abuse. Denies injuries from another. Nutritional screening: No deficits noted. Tuberculosis screening: No symptoms or risk factors identified. Assessment: 12:13 General: Appears in no apparent distress. comfortable, Behavior is calm, cooperative, ld1 appropriate for age. Pain: Complains of pain in chest Pain does not radiate. Pain currently is 7 out of 10 on a pain scale. Quality of pain is described as pressure, Pain began 2 hours ago. Is continuous. Neuro: Level of Consciousness is awake, alert, obeys commands, Oriented to person, place, time, situation, Appropriate for age. Cardiovascular: Capillary refill < 3 seconds Patient's skin is warm and dry. Rhythm is sinus rhythm. Cardiovascular: Denies. Respiratory: Airway is patent Respiratory effort is even, unlabored. GI: Abdomen is flat, non-distended. : No signs and/or symptoms were reported regarding the genitourinary system. EENT: No signs and/or symptoms were reported regarding the EENT system. Derm: No signs and/or symptoms reported regarding the dermatologic system. Musculoskeletal: No signs and/or symptoms reported regarding the musculoskeletal system. 12:44 Reassessment: Pt C/O anxiety. Notified ERP. See MAR for orders. ld1 Vital Signs: 11:41 BP 164 / 107; Pulse 99; Resp 17; Temp 97.9; Pulse Ox 96% ; Weight 102.06 kg; Height 5 jl7 ft. 11 in. ; Pain 8/10; 12:13 BP 152 / 114; Pulse 96; Resp 18; Pulse Ox 99% on R/A; ld1 12:44 BP 130 / 99; Pulse 97; Resp 20; Pulse Ox 99% on R/A; ld1 13:54 BP 129 / 95; Pulse 91; Resp 18; Pulse Ox 100% on R/A; ld1 11:41 Body Mass Index 31.38 (102.06 kg, 180.34 cm) jl7 11:41 Pain Scale: Adult 7 ED Course: 11:37 Patient arrived in ED. mr 11:41 Arm band placed on right wrist. EKG completed in triage. Results shown to MD. jl7 11:42 Adiel Gar MD is Attending Physician. bo1 11:44 Tanesha Romo, KENNETH is Primary Nurse. ld1 11:53 Inserted saline lock: 20 gauge in left forearm, using aseptic technique. Blood ld1 collected. Flushed with 10 mL NS. 11:58 Triage completed. jl7 12:13 No provider procedures requiring assistance completed. ld1 12:13 Patient has correct armband on for positive identification. Placed in gown. Bed in low ld1 position. Call light in reach. Side rails up X2. monitor and storage bin tender on. Pulse ox on. NIBP on. Door closed. Noise minimized. Warm blanket given. 12:28 XRAY Chest (1 view) In Process Unspecified. EDMS 13:54 IV discontinued, intact, bleeding controlled, No redness/swelling at site. ld1 Administered Medications: 11:45 Drug: Aspirin PO Chewable Tablet 324 mg PO once; 81 mg tablets x 4 Route: PO; ld1 11:52 Follow up: Response: No adverse reaction ld1 12:32 Drug: hydrALAZINE IVP 20 mg IVP once; For SBP > 140 mmHg. Hold if less than 120 mmHg. ld1 Route: IVP; Site: left forearm; 12:43 Drug: Ativan IVP 1 mg IVP once Route: IVP; Site: left forearm; ld1 Medication: 12:13 VIS not applicable for this client. ld1 Outcome: 13:23 Discharge ordered by MD. bo1 13:54 Discharged to home ambulatory, ld1 13:54 Condition: stable 13:54 Discharge instructions given to patient, Instructed on discharge instructions, follow up and referral plans. Demonstrated understanding of instructions, follow-up care, medications, Prescriptions given X 3, 13:55 Patient left the ED. ld1 Signatures: Dispatcher [employer] EDMS Abida Galo, Balbir Rahman RN RN jl7 Tanesha Romo RN RN ld1 Adiel Gar MD MD bo1
[2024-11-08 14:13] VITALS: TEMP 97.9
[2024-11-08 14:19] VITALS: BP 129/95; O2SAT 100
--- NOTE | 2024-11-10 12:45 | EKG ---
Test Date: 2024-11-08 Test Time: 11:50:44 Bar Porter: JENI MEASUREMENT RESULTS: Intervals: Rate: 99 NC: 142 QRSD: 98 QT: 350 QTc: 449 [place]: P: 48 NC: 142 QRS: 71 T: 48 INTERPRETIVE STATEMENTS: Normal sinus rhythm Normal ECG Compared to ECG 11/26/2023 13:14:12 No significant changes Electronically Signed On 11-10-24 12:41:46 MAINTENANCE ASSISTANT by Jake Duke
== END 2024-11-08 13:55 | disposition home or self-care (01) ==
LOC: ER 11:35
DX: F41.9 Anxiety disorder, unspecified (principal); I10 Essential (primary) hypertension; Z72.0 Tobacco use
CPT/HCPCS: 93005; 85025; 80048; 36415; 84484; 71045; 96375; 96374; 99285; J0360